=== PATIENT | male | born 1950 | race Two or more races ===

== ENCOUNTER 2018-01-27 23:48 | Inpatient (IN) | payer OTHER ==
[2018-01-28 01:01] LABS: BASO % 0.4 % (0-2.0); HEMATOCRIT 48.6 % (35.4-49); HEMOGLOBIN 16.5 GM/dL (11.7-16.9); LYMPH % 6.5 % (8-40); MCH 31.2 pg (25.7-33.7); MCHC 33.9 g/dl (32.0-35.9); MONO % 7.9 % (3.8-10.2); NEUT % 85.2 % (42.8-82.8); PLATELET COUNT 152 K/MM3 (134-434); RBC 5.28 M/mm3 (4.00-5.60); RDW 14.1 % (11.9-15.9); WHITE BLOOD COUNT 6.7 K/mm3 (4.0-10.0)
[2018-01-28] MEDS ORDERED: MIDAZOLAM HCL 2 MG/2 ML SINGLE DOSE VIAL ONE (01:05)
[2018-01-28 01:38] LABS: INR 1.29 (0.82-1.09); PROTHROMBIN TIME (PATIENT) 14.6 SEC (9.7-13.0)
--- NOTE | 2018-01-28 01:43 | PDOC ---
History of Present Illness - General History Source: EMS, Family (Sister) Exam Limitations: No Limitations - History of Present Illness Initial Comments: 01/28/18 01:45 The patient is a 67 year old male with past medical history of HTN, CVA h/o traumatic subdural hematoma, CHF, Hep B and C, syphilis, cirrhosis, chronic liver disease, hepatic encephalopathy and GERD presents to the emergency department via ems with altered mental status. As per the ems, the patient was found by a neighbor unresponsive. Enroute the patient was given 2 narcan via nasal, without response. The patient was reactive to plantar strokes. Ems reports the patient had constricted pupils, with a glucose level of 93. As per the sister, the patient had a similar incident May of 2017 s/p not taking his medication. The sister reports speaking with the patient 2 days ago ( Monday evening), states he reported taking his mediation and seemed mentally intact. Unable to obtain a detailed history due to the patients mental status. Allergies: NKDA Surgical history: Laminectomy and Total R. Hip replacement Social history: history of Polysubstance dependence (EtOH, cocaine and nicotine) . The sister states currently the patient has no toxic habits. PCP: None reported <Corrina Joseph - Last Filed: 01/28/18 01:46> <To Mcqueen - Last Filed: 01/28/18 02:23> - General Chief Complaint: Altered Mental Status Stated Complaint: ALTERED MENTAL STATUS Time Seen by Provider: 01/28/18 00:11 Past History <Corrina Joseph - Last Filed: 01/28/18 01:46> - Past Medical History Cardiac Disorders: Yes CVA: (H/O traumatic subdural hematoma) HTN: Yes Hypercholesterolemia: Yes Liver Disease: Yes (Cirrhosis, hepatic encephalopathy, hepatitis B, hepatitis C) - Surgical History Neurologic Surgery: Yes (Laminectomy) Orthopedic Surgery: Yes (Total R. Hip replacement) - Immunization History Immunization Up to Date: Yes - Suicide/Smoking/Psychosocial Hx Smoking Status: No Smoking History: Unknown if ever smoked Have you smoked in the past 12 months: No Number of Cigarettes Smoked Daily: 0 Information on smoking cessation initiated: No Hx Alcohol Use: No Drug/Substance Use Hx: No Substance Use Type: Alcohol Hx Substance Use Treatment: No <To Mcqueen - Last Filed: 01/28/18 02:23> - Past Medical History Allergies/Adverse Reactions: Allergies Allergy/AdvReac Type Severity Reaction Status Date / Time No Known Allergies Allergy Unverified 01/28/18 00:00 Home Medications: Ambulatory Orders Capsaicin/Skin Cleanser [Qutenza 8% Kit] 10 unit TP DAILY 12/27/16 Magnesium Oxide 400 mg PO DAILY 12/27/16 Multivitamin [Poly-Vitamin] 100 mg PO DAILY 12/27/16 Nicotine Patch [Nicoderm Patch -] 14 mg TP DAILY PRN 12/27/16 Omeprazole 20 mg PO DAILY 12/27/16 Polyethylene Glycol 1000 [Polyethylene Glycol] 238 gm PO DAILY 12/27/16 Trolamine Salicylate/Aloe Vera [Analgesic Creme 10% Cream] 10 unit TP DAILY 05/07 Lactulose (Oral Use) [Cephulac -] 45 gm PO Q6HPO #1 ml 12/31/16 Rifaximin [Xifaxan -] 550 mg PO BID #60 tab 12/31/16 Spironolactone 100 mg PO DAILY #30 tab 12/31/16 levETIRAcetam [Keppra -] 2 tab PO BID #120 tablet 12/31/16 Review of Systems - Review of Systems Able to Perform ROS?: No (Altered mental status ) <Corrina Joseph - Last Filed: 01/28/18 01:46> *Physical Exam - Vital Signs Last Vital Signs Temp Pulse Resp BP Pulse Ox 98.6 F 89 18 180/115 97 01/28/18 00:12 01/28/18 00:12 01/28/18 00:12 01/28/18 00:12 01/28/18 00:12 <Corrina Joseph - Last Filed: 01/28/18 01:46> - Vital Signs Last Vital Signs Temp Pulse Resp BP Pulse Ox 98.6 F 89 18 180/115 97 01/28/18 00:12 01/28/18 00:12 01/28/18 00:12 01/28/18 00:12 01/28/18 00:12 - Physical Exam Comments: 01/28/18 02:18 Patient was seen and evaluated immediately upon arrival. This physical exam is being recorded prior to admission. On arrival: Patient is somnolent, moans incoherently to sternal rub, does not follow commands, is noted to be combative and agitated and attempting to injure ED staff; Normocephalic, atraumatic PERRLA, no scleral icterus mmm neck is Supple cta rrr Abdomen is Soft, nontender, nondistended No lower extremity edema/deformity + Asterixis Patient moving all extremities symmetrically, does not follow commands; <To Mcqueen - Last Filed: 01/28/18 02:23> Heart Score/ECG Review - ECG Impressions Comment:: 01/28/18 01:45 Normal sinus rhythm Prolonged QT <Corrina Joseph - Last Filed: 01/28/18 01:46> ED Treatment Course - LABORATORY CBC & Chemistry Diagram: 01/28/18 00:12 01/28/18 01:13 - ADDITIONAL ORDERS Additional order review: Laboratory Results 01/28/18 01:13 PT with INR 14.60 H INR 1.29 H 01/28/18 00:12 RBC 5.28 D MCV 92.0 MCHC 33.9 RDW 14.1 MPV 9.0 Neutrophils % 85.2 H D Lymphocytes % 6.5 L D Monocytes % 7.9 Eosinophils % 0.0 D Basophils % 0.4 <Corrina Joseph - Last Filed: 01/28/18 01:46> - LABORATORY CBC & Chemistry Diagram: 01/28/18 00:12 01/28/18 01:13 - ADDITIONAL ORDERS Additional order review: Laboratory Results 01/28/18 01:13 PT with INR 14.60 H INR 1.29 H 01/28/18 00:12 RBC 5.28 D MCV 92.0 MCHC 33.9 RDW 14.1 MPV 9.0 Neutrophils % 85.2 H D Lymphocytes % 6.5 L D Monocytes % 7.9 Eosinophils % 0.0 D Basophils % 0.4 - RADIOLOGY Radiology Studies Ordered: Category Date Time Status HEAD CT WITHOUT CONTRAST [CT] Stat CT Scan 01/28/18 01:12 Taken CHEST X-RAY PORTABLE* [RAD] Stat Radiology 01/28/18 01:13 Ordered <To Mcqueen - Last Filed: 01/28/18 02:23> Medical Decision Making - Medical Decision Making 01/28/18 02:20 Patient is 67-year-old male with multiple comorbidities, history of liver cirrhosis (questionable hepatocellular carcinoma) who presents to the ER with signs and symptoms of acute hepatic encephalopathy with elevated ammonia level. Patient is somnolent, moans to sternal rub, does not follow commands; CT of head shows no evidence of acute intracranial pathology. Patient is afebrile rectally. CBC is at baseline without evidence of leukocytosis with minimal neutrophilia. CMP reveals significantly elevated ammonia of 182. Urinalysis reveals no evidence of pyuria. We will administer rectal lactulose. Will admit to ICU for further treatment. <To Mcqueen - Last Filed: 01/28/18 02:23> *DC/Admit/Observation/Transfer - Attestations Scribe Attestion: 01/28/18 01:46 Documentation prepared by Corrina Joseph, acting as medical staff specialist for To Mcqueen MD. <Corrina Joseph - Last Filed: 01/28/18 01:46> - Discharge Dispostion Decision to Admit order: Yes <To Mcqueen - Last Filed: 01/28/18 02:23> Diagnosis at time of Disposition: Hepatic encephalopathy Altered mental status Qualifiers: Altered mental status type: unspecified Qualified Code(s): R41.82 - Altered mental status, unspecified - Discharge Dispostion Condition at time of disposition: Critical
[2018-01-28] MEDS ORDERED: MIDAZOLAM HCL 2 MG/2 ML SINGLE DOSE VIAL IVPUSH ONE ×3 (01:45→23:25)
[2018-01-28 01:49] LABS: ALBUMIN 3.3 g/dl (3.4-5.0); ALK PHOS 134 U/L (45-117); ANION GAP 14 (8-16); BILIRUBIN,TOTAL 2.4 mg/dL (0.2-1.0); BLOOD UREA NITROGEN 16 mg/dL (7-18); CALCIUM 9.1 mg/dL (8.5-10.1); CHLORIDE 108 mmol/L (98-107); CO2 16 mmol/L (21-32); CREATININE 1.2 mg/dL (0.7-1.3); GLUCOSE,RANDOM 104 mg/dL (74-106); SGPT/ALT 34 U/L (12-78); SODIUM 138 mmol/L (136-145); TOT PROT 8.6 g/dl (6.4-8.2)
[2018-01-28 01:53] LABS: POTASSIUM 4.7 mmol/L (3.5-5.1); SGOT/AST 45 U/L (15-37)
[2018-01-28] MEDS ORDERED: LACTULOSE 20 GM/30 ML UDC (FOR RECTAL USE ONLY) PR ONE (02:01)
[2018-01-28 02:06] LABS: URINE APPEARANCE CLEAR; URINE BILIRUBIN NEGATIVE (<2.0 mg/dL); URINE COLOR YELLOW; URINE GLUCOSE (UA) NEGATIVE (NEGATIVE); URINE KETONE NEGATIVE (NEGATIVE); URINE LEUK ESTERASE NEGATIVE (NEGATIVE); URINE NITRITE NEGATIVE (NEGATIVE); URINE PROTEIN NEGATIVE (NEGATIVE)
[2018-01-28 02:14] LABS: EPI CELLS RARE /HPF (FEW); URINE HYALINE CAST 14 /lpf; URINE MUCUS FEW
[2018-01-28 02:17] LABS: COCAINE, UR NEGATIVE ng/ml (CUTOFF=300); METHADONE, UR NEGATIVE ng/ml (CUTOFF=300); OPIATES, URI NEGATIVE ng/ml (CUTOFF=300); PHENCYCLIDINE,URINE NEGATIVE ng/ml (CUTOFF=25); URINE AMPHETAMINES NEGATIVE ng/ml (CUTOFF=500); URINE BARBITURATES NEGATIVE ng/ml (CUTOFF=200)
[2018-01-28 02:18] LABS: URINE BENZODIAZEPINES POSITIVE ng/ml (CUTOFF=200)
--- NOTE | 2018-01-28 02:28 | PN ---
Teaching Attending Note Name of Resident: Ben Joya ATTENDING PHYSICIAN STATEMENT I saw and evaluated the patient. I reviewed the resident's note and discussed the case with the resident. I agree with the resident's findings and plan as documented. SUBJECTIVE: Patient is a 67 year old man with past history of HTN, CVA, traumatic subdural hematoma, polysubstance abuse, right hip replacement, CHF, Hep B and C, syphilis , cirrhosis, chronic liver disease, hepatic encephalopathy and GERD who presents with altered mental status - he was unresponsive by a neighbor who called EMS. EMS gave him narcan via nasal x 2, without response. EMS reports the patient had constricted pupils, with a glucose level of 93. His sister says she last spoke to him 2 days ago and he seemed okay. Patient is a . On arrival in the ER he was somnolent but later became agitated, becoming aggressive towards the staff. He was then sedated with ?Ativan and Versed and started on lactulose rectally. OBJECTIVE: Sedated. Somnolent but arousable. Vital Signs Period Temp Pulse Resp BP Sys/Cherry Pulse Ox Last 24 Hr 98.6 F 89 18 180/115 97 HEENT: Tinge of Jaundice, no eye redness or discharge, PERRLA, Normocephalic, atraumatic. External ears are normal; hearing cannot be properly assessed. No nasal discharge. Neck: Supple, nontender. No palpable adenopathy or thyromegaly. No JVD Chest: Good effort. Clear to auscultation and percussion. Heart: Regular. No S3, rub or murmur Abdomen: Not distended, soft, nontender and no HSM. No rebound or guarding. Normoactive bowel sounds. Ext: Peripheral pulses intact. No leg edema. Skin: Warm and dry. No petechiae, rash or ecchymosis. Neuro: Somnolent but arousable. Unable to assess for asterexis; no tremors at rest. Unable to follow commands. Withdraws limbs to painful stimuli. Home Medications Medication Instructions Recorded Capsaicin/Skin Cleanser [Qutenza 10 unit TP DAILY 12/27/16 8% Kit] Magnesium Oxide 400 mg PO DAILY 12/27/16 Multivitamin [Poly-Vitamin] 100 mg PO DAILY 12/27/16 Nicotine Patch [Nicoderm Patch -] 14 mg TP DAILY PRN 12/27/16 Omeprazole 20 mg PO DAILY 12/27/16 Polyethylene Glycol 1000 238 gm PO DAILY 12/27/16 [Polyethylene Glycol] Trolamine Salicylate/Aloe Vera 10 unit TP DAILY 12/27/16 [Analgesic Creme 10% Cream] Lactulose (Oral Use) [Cephulac -] 45 gm PO Q6HPO #1 ml 12/31/16 Rifaximin [Xifaxan -] 550 mg PO BID #60 tab 12/31/16 Spironolactone 100 mg PO DAILY #30 tab 12/31/16 levETIRAcetam [Keppra -] 2 tab PO BID #120 tablet 12/31/16 Abnormal Lab Results 01/28/18 01/28/18 01/28/18 00:12 01:13 01:13 Neutrophils % 85.2 H D Lymphocytes % 6.5 L D PT with INR 14.60 H INR 1.29 H Chloride 108 H Carbon Dioxide 16 L D Total Bilirubin 2.4 H D AST 45 H Alkaline Phosphatase 134 H D Ammonia Total Protein 8.6 H D Albumin 3.3 L D Urine Blood 01/28/18 01/28/18 01:13 01:55 Neutrophils % Lymphocytes % PT with INR INR Chloride Carbon Dioxide Total Bilirubin AST Alkaline Phosphatase Ammonia 185.2 H Total Protein Albumin Urine Blood 1+ H Current Medications Generic Name Dose Route Start Last Admin Trade Name Freq PRN Reason Stop Dose Admin Chlorhexidine Gluconate 1 applic 01/28/18 22:00 Hibiclens For Decolonization - TP HS PAUL Heparin Sodium (Porcine) 5,000 unit 01/28/18 06:00 Heparin - SQ TID PAUL Sodium Chloride 1,000 mls @ 75 mls/hr 01/28/18 03:30 Normal Saline - IV ASDIR PAUL Lactulose 20 gm 01/28/18 06:00 Cephulac (Oral Use) NGT TID PAUL Mupirocin 1 applic 01/28/18 10:00 Bactroban Ointment (For Decolonization) - NS 02/02/18 09:59 BID PAUL ASSESSMENT AND PLAN: 1. Hepatic encephalopathy - No obvious precipitating factor. Admit to the ICU as an inpatient. Head CT was negative. Though not the usual presentation, agitation can be a feature of hepatic encephalopathy. Will avoid benzodiazepines and use Haldol 2 mg IM to treat agitation. Treat with Lactulose 40 ml via NGT qid and Rifaximin 550 mg q 12 hours. Monitor electrolytes and give D5NS at 50 ml/hour. Willl monitor closely in view of history of CHF. 2. Uncontrolled hypertension - Will use IV hydralazine if it persists. 3. DVT prophylaxis - Heparin 5000u sq tid 4. Advance directives - Full code
[2018-01-28] MEDS ORDERED: SODIUM CHLORIDE 1,000 ML IV SCH (03:30)
--- NOTE | 2018-01-28 03:31 | HP ---
CHIEF COMPLAINT: AMS PCP: unknown HISTORY OF PRESENT ILLNESS: Pt is a 67 y/o M with multiple medical problems including Hep B, Hep C, cirrhosis, and hepatic encephalopathy for which he takes lactulose at home. Pt has a sister who helps him take care of himself and was present at bedside to provide history as pt is unresponsive. Per sister, she spoke with him Fri, and he was fine. His neighbor spoke with the pt yesterday and he was fine. However, when the sister tried to contact the pt in the afternoon, he did not respond, so she called the pt's neighbor who found the pt unresponsive. Pt has had a similar episode last December during which he was admitted to the ICU with hepatic encephalopathy with a lactulose in the 120s. He was seen by neurology at that time and because there was concern for possible seizure disorder, pt was put on Keppra. According to the sister, he has been taking it regularly. Pt lives alone, and sister calls him daily to ensure he's taken his medications. Pt's sister describes an episode about 1 month ago when she spoke to her brother and he told her that he had been confused and awoke to find that he had urinated and defecated on the floor of his apartment. He had no recollection of having done this. Pt's sister denies aving heard the pt describe any nausea, vomiting, cough, chills, fever. ER course was notable for: (1) t bili 2.4, AST 45, Alk phos 134, Ammonia 185, Alb 3.3, Utox pos for benzos (given in ED) (2) Head CT neg (3) Pt given midazolam for agitation. Given lactulose Recent Travel: denies PAST MEDICAL HISTORY: Hep B, Hep C, cirrhosis, and hepatic encephalopathy, HTN, CVA, tarumatic subdural, CHG, GERD PAST SURGICAL HISTORY: Social History: Smoking: Alcohol: Drugs: Family History: Allergies No Known Allergies Allergy (Unverified 01/28/18 00:00) HOME MEDICATIONS: Home Medications Medication Instructions Recorded Capsaicin/Skin Cleanser [Qutenza 10 unit TP DAILY 12/27/16 8% Kit] Magnesium Oxide 400 mg PO DAILY 12/27/16 Multivitamin [Poly-Vitamin] 100 mg PO DAILY 12/27/16 Nicotine Patch [Nicoderm Patch -] 14 mg TP DAILY PRN 12/27/16 Omeprazole 20 mg PO DAILY 12/27/16 Polyethylene Glycol 1000 238 gm PO DAILY 12/27/16 [Polyethylene Glycol] Trolamine Salicylate/Aloe Vera 10 unit TP DAILY 12/27/16 [Analgesic Creme 10% Cream] Lactulose (Oral Use) [Cephulac -] 45 gm PO Q6HPO #1 ml 12/31/16 Rifaximin [Xifaxan -] 550 mg PO BID #60 tab 12/31/16 Spironolactone 100 mg PO DAILY #30 tab 12/31/16 levETIRAcetam [Keppra -] 2 tab PO BID #120 tablet 12/31/16 REVIEW OF SYSTEMS unable to obtain. PHYSICAL EXAMINATION Vital Signs - 24 hr 01/28/18 00:12 Temperature 98.6 F Pulse Rate 89 Respiratory 18 Rate Blood Pressure 180/115 O2 Sat by Pulse 97 Oximetry (%) Gen: unresponsive, sleeping, snoring HEENT: pupils equal, round, and sluggishly reactive Neck: no jvd Cardio: s1, S2, rrr, no m/r/g. Difficult to auscultate over sound of snoring Pulm: cta b/l Abd: soft, ? possible hepatomegally Laboratory Results - last 24 hr 01/28/18 01/28/18 01/28/18 00:12 01:13 01:13 WBC 6.7 RBC 5.28 D Hgb 16.5 D Hct 48.6 D MCV 92.0 MCH 31.2 MCHC 33.9 RDW 14.1 Plt Count 152 D MPV 9.0 Absolute Neuts (auto) 5.7 Neutrophils % 85.2 H D Lymphocytes % 6.5 L D Monocytes % 7.9 Eosinophils % 0.0 D Basophils % 0.4 Nucleated RBC % 0 PT with INR 14.60 H INR 1.29 H Sodium 138 Potassium 4.7 D Chloride 108 H Carbon Dioxide 16 L D Anion Gap 14 BUN 16 D Creatinine 1.2 Creat Clearance w eGFR > 60 Random Glucose 104 D Calcium 9.1 Magnesium 2.0 Total Bilirubin 2.4 H D AST 45 H ALT 34 D Alkaline Phosphatase 134 H D Ammonia Total Protein 8.6 H D Albumin 3.3 L D Urine Color Urine Appearance Urine pH Ur Specific [place] Urine Protein Urine Glucose (UA) Urine Ketones Urine Blood Urine Nitrite Urine Bilirubin Urine Urobilinogen Ur Leukocyte Esterase Urine WBC (Auto) Urine RBC (Auto) Ur Epithelial Cells Hyaline Casts Urine Mucus Opiates Screen Methadone Screen Barbiturate Screen Phencyclidine Screen Ur Amphetamines Screen MDMA (Ecstasy) Screen Benzodiazepines Screen Cocaine Screen U Marijuana (THC) Screen Alcohol, Quantitative < 5.0 01/28/18 01/28/18 01/28/18 01:13 01:55 01:55 WBC RBC Hgb Hct MCV MCH MCHC RDW Plt Count MPV Absolute Neuts (auto) Neutrophils % Lymphocytes % Monocytes % Eosinophils % Basophils % Nucleated RBC % PT with INR INR Sodium Potassium Chloride Carbon Dioxide Anion Gap BUN Creatinine Creat Clearance w eGFR Random Glucose Calcium Magnesium Total Bilirubin AST ALT Alkaline Phosphatase Ammonia 185.2 H Total Protein Albumin Urine Color Yellow Urine Appearance Clear Urine pH 6.0 Ur Specific [place] 1.016 Urine Protein Negative Urine Glucose (UA) Negative Urine Ketones Negative Urine Blood 1+ H Urine Nitrite Negative Urine Bilirubin Negative Urine Urobilinogen 2.0 Ur Leukocyte Esterase Negative Urine WBC (Auto) 1 Urine RBC (Auto) 4 Ur Epithelial Cells Rare Hyaline Casts 14 Urine Mucus Few Opiates Screen Negative Methadone Screen Negative Barbiturate Screen Negative Phencyclidine Screen Negative Ur Amphetamines Screen Negative MDMA (Ecstasy) Screen Negative Benzodiazepines Screen Positive Cocaine Screen Negative U Marijuana (THC) Screen Negative Alcohol, Quantitative ASSESSMENT/PLAN: Pt is a 67 y/o M with PMH Hep B, Hep C, cirrhosis, and hepatic encephalopathy who presented to ED brought by neighbor due to AMS and unresponsiveness. Pt is admitted to ICU for hepatic encephalopathy. #Hepatic encephalopathy -Ammonia 180 -AMS -lactulose -start rifaximin once pt can take po. -GI cosult -Neuro consult #HTN -resume home meds once pt is more alert and can take PO #FEN -NS -Lytes wnl -NPO #PPx -hep sub Q #Dispo -Admit to ICU Ben Joya MD PGY-1 IM Visit type - Emergency Visit Emergency Visit: Yes ED Registration Date: 01/28/18 Care time: The patient presented to the Emergency Department on the above date and was hospitalized for further evaluation of their emergent condition. - New Patient This patient is new to me today: Yes Date on this admission: 01/28/18 - Critical Care Critical Care patient: No Hospitalist Screening - Colonoscopy Questionnaire Colonoscopy Questionnaire: Colonoscopy Questionnaire - Patient: 50 - 75 years old and never had a screening colonoscopy: Unknown History of colon or rectal polyps, or CA: Unknown History of IBD, Crohn's disease or UC: Unknown History of abdominal radiation therapy as a child: Unknown - Relative: 1 with colon or rectal CA, or polyps at age 60 or younger: Unknown Colon or rectal CA diagnosed at age 45 or younger: Unknown Multiple relatives with colon or rectal CA: Unknown - Outcome: Screening Result: Negative Screen
[2018-01-28] MEDS: LACTULOSE 20 GM/30 ML UDC (FOR ORAL USE ONLY) NGT SCH ×4 (04:47→18:41)
[2018-01-28] MEDS: HEPARIN NA (PORCINE) 5,000 UNITS/ML 1ML VIAL SQ SCH ×2 (05:30→13:40)
[2018-01-28] MEDS: amLODIPine BESYLATE 5 MG TABLET (FP) NGT SCH (07:48)
--- NOTE | 2018-01-28 09:25 | CONSULT ---
Consult Consult Specialty:: PULM/CCM Referred by:: ELADIA Reason for Consultation:: AMS - History of Present Illness Chief Complaint: AMS History of Present Illness: 67 M, Hepatitis B, Hepatitis C, cirrhosis, and hepatic encephalopathy ( previously on lactulose & rifaximin), former EtOH and cocaine abuse, syphilis, CHICHI, and GERD. Admitted via the ER due to AMS. Noted to have an ammonia level of 185. NGT was inserted for administration of lactulose. He has not had a BM yet. Patient is lethargic and poorly arousable. He is not able to provide any information. He was also apparently given Versed. He appears able to protect his airway nor is he in any respiratory distress. CXR: Clear: Questionable aortic dilatation versus projection which is new from his previous CXR CT Head: no acute process. - History Source History Provided By: Medical Record Limitations to Obtaining History: Clinical Condition - Past Medical History [employer] DEVEL[employer]: Yes: Other Cardio/Vascular: Yes: Deep Vein Thrombosis, HTN Pulmonary: Yes: Pulmonary Embolus Psych: Yes: Addictions Musculoskeletal: Yes: Other - Past Surgical History Past Surgical History: Yes: Laminectomy - Alcohol/Substance Use Hx Alcohol Use: No - Smoking History Smoking history: Unknown if ever smoked Have you smoked in the past 12 months: No Aproximately how many cigarettes per day: 0 Home Medications - Allergies Allergies/Adverse Reactions: Allergies Allergy/AdvReac Type Severity Reaction Status Date / Time No Known Allergies Allergy Unverified 01/28/18 00:00 - Home Medications Home Medications: Ambulatory Orders Capsaicin/Skin Cleanser [Qutenza 8% Kit] 10 unit TP DAILY 12/27/16 Magnesium Oxide 400 mg PO DAILY 12/27/16 Multivitamin [Poly-Vitamin] 100 mg PO DAILY 12/27/16 Nicotine Patch [Nicoderm Patch -] 14 mg TP DAILY PRN 12/27/16 Omeprazole 20 mg PO DAILY 12/27/16 Polyethylene Glycol 1000 [Polyethylene Glycol] 238 gm PO DAILY 12/27/16 Trolamine Salicylate/Aloe Vera [Analgesic Creme 10% Cream] 10 unit TP DAILY 05/07 Lactulose (Oral Use) [Cephulac -] 45 gm PO Q6HPO #1 ml 12/31/16 Rifaximin [Xifaxan -] 550 mg PO BID #60 tab 12/31/16 levETIRAcetam [Keppra -] 2 tab PO BID #120 tablet 12/31/16 Spironolactone 50 mg PO DAILY 01/28/18 Review of Systems Unable to obtain ROS, reason: not able to assess Physical Exam Vital Signs: Vital Signs Temperature 98.2 F 01/28/18 06:00 Pulse Rate 87 01/28/18 08:00 Respiratory Rate 11 L 01/28/18 08:00 Blood Pressure 158/98 01/28/18 08:00 O2 Sat by Pulse Oximetry (%) 99 01/28/18 04:52 Constitutional: Yes: No Distress Eyes: Yes: Conjunctiva Clear HENT: Yes: Atraumatic, Normocephalic Neck: Yes: Supple, Trachea Midline Cardiovascular: Yes: Regular Rate and Rhythm Respiratory: Yes: CTA Bilaterally, On Nasal O2. No: Rales, Rhonchi, Stridor, Tachypnea, Wheezes Gastrointestinal: Yes: Normal Bowel Sounds, Soft Renal/: Yes: WNL Musculoskeletal: Yes: WNL Extremities: Yes: WNL Edema: No Peripheral Pulses WNL: Yes Integumentary: Yes: WNL Neurological: Yes: Unresponsive Labs: CBC, BMP 01/28/18 00:12 01/28/18 01:13 Imaging - Results Chest X-ray: Report Reviewed, Image Reviewed Cat Scan: Report Reviewed, Image Reviewed Problem List - Problems (1) Hepatitis C Code(s): B19.20 - UNSPECIFIED VIRAL HEPATITIS C WITHOUT HEPATIC COMA (2) Hepatitis B Code(s): B19.10 - UNSPECIFIED VIRAL HEPATITIS B WITHOUT HEPATIC COMA (3) CHICHI (obstructive sleep apnea) Code(s): G47.33 - OBSTRUCTIVE SLEEP APNEA (ADULT) (PEDIATRIC) (4) Syphilis Code(s): A53.9 - SYPHILIS, UNSPECIFIED (5) Altered mental status Code(s): R41.82 - ALTERED MENTAL STATUS, UNSPECIFIED Qualifiers: Altered mental status type: unspecified Qualified Code(s): R41.82 - Altered mental status, unspecified (6) Hepatic encephalopathy Code(s): K72.90 - HEPATIC FAILURE, UNSPECIFIED WITHOUT COMA (7) Alcohol abuse Code(s): F10.10 - ALCOHOL ABUSE, UNCOMPLICATED Assessment/Plan Lactulose until BM then scheduled: was previously on 45gm Q6h Aspiration precautions Avoid sedative agents Rifaximin 550mg BID O2 as needed VTE prophylaxis Neuro evaluation ICU monitoring Dr Real Critical care time spent in reviewing chart, evaluating patient and formulating plan - 36 minutes.
[2018-01-28] MEDS ORDERED: LACTULOSE 20 GM/30 ML UDC (FOR RECTAL USE ONLY) PR SCH (10:00)
[2018-01-28] MEDS ORDERED: amLODIPine BESYLATE 5 MG TABLET (FP) PO SCH (10:00)
--- NOTE | 2018-01-28 10:29 | PN ---
Physical Exam: SUBJECTIVE: Patient seen and examined, responds to a few questions, but no meaningful responses elicited. OBJECTIVE: Vital Signs Period Temp Pulse Resp BP Sys/Cherry Pulse Ox Last 24 Hr 98.2 F-98.6 F 85-108 11-18 142-180/94-115 97-99 General: waking up in bed, non specific moaning Neuro: non specific moaning, awake, responds to name, moves all extremities, facial symmetry, further exam limited Chest: decreased effort, no rales or wheezing, limited exam, non specific moaning on chest palpation Abdomen: soft, non specific moaning on exam, no voluntary or involuntary guarding or rigidity, positive bowel sounds Extremities: no edema Laboratory Results - last 24 hr 01/28/18 01/28/18 01/28/18 00:12 01:13 01:13 WBC 6.7 RBC 5.28 D Hgb 16.5 D Hct 48.6 D MCV 92.0 MCH 31.2 MCHC 33.9 RDW 14.1 Plt Count 152 D MPV 9.0 Absolute Neuts (auto) 5.7 Neutrophils % 85.2 H D Lymphocytes % 6.5 L D Monocytes % 7.9 Eosinophils % 0.0 D Basophils % 0.4 Nucleated RBC % 0 PT with INR 14.60 H INR 1.29 H Sodium 138 Potassium 4.7 D Chloride 108 H Carbon Dioxide 16 L D Anion Gap 14 BUN 16 D Creatinine 1.2 Creat Clearance w eGFR > 60 Random Glucose 104 D Calcium 9.1 Magnesium 2.0 Total Bilirubin 2.4 H D AST 45 H ALT 34 D Alkaline Phosphatase 134 H D Ammonia Total Protein 8.6 H D Albumin 3.3 L D Urine Color Urine Appearance Urine pH Ur Specific Casey Urine Protein Urine Glucose (UA) Urine Ketones Urine Blood Urine Nitrite Urine Bilirubin Urine Urobilinogen Ur Leukocyte Esterase Urine WBC (Auto) Urine RBC (Auto) Ur Epithelial Cells Hyaline Casts Urine Mucus Opiates Screen Methadone Screen Barbiturate Screen Phencyclidine Screen Ur Amphetamines Screen MDMA (Ecstasy) Screen Benzodiazepines Screen Cocaine Screen U Marijuana (THC) Screen Alcohol, Quantitative < 5.0 01/28/18 01/28/18 01/28/18 01:13 01:55 01:55 WBC RBC Hgb Hct MCV MCH MCHC RDW Plt Count MPV Absolute Neuts (auto) Neutrophils % Lymphocytes % Monocytes % Eosinophils % Basophils % Nucleated RBC % PT with INR INR Sodium Potassium Chloride Carbon Dioxide Anion Gap BUN Creatinine Creat Clearance w eGFR Random Glucose Calcium Magnesium Total Bilirubin AST ALT Alkaline Phosphatase Ammonia 185.2 H Total Protein Albumin Urine Color Yellow Urine Appearance Clear Urine pH 6.0 Ur Specific Casey 1.016 Urine Protein Negative Urine Glucose (UA) Negative Urine Ketones Negative Urine Blood 1+ H Urine Nitrite Negative Urine Bilirubin Negative Urine Urobilinogen 2.0 Ur Leukocyte Esterase Negative Urine WBC (Auto) 1 Urine RBC (Auto) 4 Ur Epithelial Cells Rare Hyaline Casts 14 Urine Mucus Few Opiates Screen Negative Methadone Screen Negative Barbiturate Screen Negative Phencyclidine Screen Negative Ur Amphetamines Screen Negative MDMA (Ecstasy) Screen Negative Benzodiazepines Screen Positive Cocaine Screen Negative U Marijuana (THC) Screen Negative Alcohol, Quantitative Active Medications Generic Name Dose Route Start Last Admin Trade Name Freq PRN Reason Stop Dose Admin Amlodipine Besylate 5 mg 01/28/18 07:15 01/28/18 07:48 Norvasc - NGT 5 mg DAILY [facility] Administration Chlorhexidine Gluconate 1 applic 01/28/18 22:00 Hibiclens For Decolonization - TP HS [facility] Heparin Sodium (Porcine) 5,000 unit 01/28/18 06:00 01/28/18 05:30 Heparin - SQ 5,000 unit TID [facility] Administration Dextrose/Sodium Chloride 1,000 mls @ 100 mls/hr 01/28/18 10:30 D5-Ns - IV ASDIR [facility] Lactulose 45 gm 01/28/18 12:00 Cephulac (Oral Use) NGT Q6HPO [facility] Mupirocin 1 applic 01/28/18 10:00 Bactroban Ointment (For Decolonization) - NS 02/02/18 09:59 BID [facility] Rifaximin 550 mg 01/28/18 10:00 Xifaxan - PO BID [facility] CT brain results reviewed CXR results reviewed, ?Dilated knob, repeat CXR when improved ASSESSMENT/PLAN: 67 yom with PMHx of HTN, CVA, traumatic subdural hematoma, polysubstance abuse (ETOH/cocaine), right hip replacement, CHF, Hep B and C, syphilis, cirrhosis, chronic liver disease, hepatic encephalopathy and GERD, admitted with AMS in 2016 felt to be combination of seizure/hepatic encephalopathy, readmitted with AMS -AMS,likely hepatic encephalopathy +/- seizures (no response narcan and no evidence of hypoglycemia in the field) -Decompensated cirrhosis -?HCC,patient on nexavar -polysubstance abuse with ETOH/cocaine -HTN/tachycardia, ?from agitation/pain vs withdrawal. -Seizure disorder -Chronic Hep B and C -H/o CVA, traumatic subdural hematoma -?CHF -syphilis -GERD Plan: Mental status improved. Continue NGT aggressive lactulose and rifaximin. Screen for precipitating factors. monitor h/h, FOBT, urine clear, repeat CXR. Start Ceftriaxone emperic treatment for SBP, Abdominal US when stable, serial exams. Follow up GI input. Sister denies recent ETOH use, reports last use more than a year ago. Gentle hydration D5NS at 50. Hold lasix/aldactone for now. On Nexavar, ?HCC, retrieve more info from outpatient GI tomorrow. Neurology input noted. Keppra IV BID, seizure precautions. Neuro Checks. Amlodipine for BP. Sister strongly denies ETOH use recently.Avoid sedatives for now. DVTPPX with SCDs. Dispo pending clinical improvement. Plan discussed with sister Anayeli on phone in detail, all questions answered. medications received, home meds reconciled. Also discussed code status, initially stated no CPR but ok with intubation. Explained in detail and wants patient full code till he wakes up and she can have a convsesation with him. 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 Total critical care time spent in ICU 45 min. Visit type - Emergency Visit Emergency Visit: No - New Patient This patient is new to me today: Yes Date on this admission: 01/28/18 - Critical Care Critical Care patient: Yes Total Critical Care Time (in minutes): 45 Critical Care Statement: The care of this patient involved high complexity decision making to prevent further life threatening deterioration of the patient 's condition and/or to evaluate & treat vital organ system(s) failure or risk of failure.
[2018-01-28] MEDS ORDERED: DEXTROSE 5%-NORMAL SALINE 1,000 ML IV SCH ×2 (10:30→16:59)
[2018-01-28] MEDS: RIFAXIMIN 550 MG TABLET (UD) PO SCH ×2 (10:30→21:37)
[2018-01-28] MEDS ORDERED: PT OWN MED DRAWER 7, Y5N ONE (10:45)
[2018-01-28] MEDS: MUPIROCIN 2% TOPICAL OINTMENT FOR DECOLONIZATION NS SCH ×2 (10:47→21:36)
--- NOTE | 2018-01-28 11:37 | CON.NEURO ---
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: Yes: Other Cardio/Vascular: Yes: Deep Vein Thrombosis, HTN Pulmonary: Yes: Pulmonary Embolus Psych: Yes: Addictions Musculoskeletal: Yes: Other - Past Surgical History Past Surgical History: Yes: Laminectomy - Alcohol/Substance Use Hx Alcohol Use: No - Smoking History Smoking history: Unknown if ever smoked Have you smoked in the past 12 months: No Aproximately how many cigarettes per day: 0 Home Medications - Allergies Allergies/Adverse Reactions: Allergies Allergy/AdvReac Type Severity Reaction Status Date / Time No Known Allergies Allergy Unverified 01/28/18 00:00 - Home Medications Home Medications: Ambulatory Orders Capsaicin/Skin Cleanser [Qutenza 8% Kit] 10 unit TP DAILY 12/27/16 Magnesium Oxide 400 mg PO DAILY 12/27/16 Multivitamin [Poly-Vitamin] 100 mg PO DAILY 12/27/16 Nicotine Patch [Nicoderm Patch -] 14 mg TP DAILY PRN 12/27/16 Omeprazole 20 mg PO DAILY 12/27/16 Polyethylene Glycol 1000 [Polyethylene Glycol] 238 gm PO DAILY 12/27/16 Trolamine Salicylate/Aloe Vera [Analgesic Creme 10% Cream] 10 unit TP DAILY 05/07 Lactulose (Oral Use) [Cephulac -] 45 gm PO Q6HPO #1 ml 12/31/16 Rifaximin [Xifaxan -] 550 mg PO BID #60 tab 12/31/16 levETIRAcetam [Keppra -] 2 tab PO BID #120 tablet 12/31/16 Spironolactone 50 mg PO DAILY 01/28/18 Physical Exam-Neuro Vital Signs: Vital Signs Temperature 98.6 F 01/28/18 10:00 Pulse Rate 87 01/28/18 08:00 Respiratory Rate 12 01/28/18 10:00 Blood Pressure 142/97 01/28/18 10:00 O2 Sat by Pulse Oximetry (%) 99 01/28/18 09:00 Labs: CBC, BMP 01/28/18 00:12 01/28/18 01:13 INR, PTT INR 1.29 (0.82-1.09) H 01/28/18 01:13 Assessment/Plan cc Episode of confusion HPI 67 year old male hsitory of Hep B, Hep C, Cirrhosis and had seizure during last admission. Patient was found to be unrepsonsive. He is being treated for hepatic encephalopathy. He has been improving slightly. He has no fever or seizure activity while in hospital. Patient is not on keppra. He has ct head which was unremarkable. He has one bowel movement. Spoke to Hospitalist and nursing staff. PAST MEDICAL HISTORY: Hep B, Hep C, cirrhosis, and hepatic encephalopathy, HTN, CVA, tarumatic subdural, CHG, GERD SH,ROS,FH reviewed in chart HOME MEDICATIONS: Home Medications Medication Instructions Recorded Capsaicin/Skin Cleanser [Qutenza 10 unit TP DAILY 12/27/16 8% Kit] Magnesium Oxide 400 mg PO DAILY 12/27/16 Multivitamin [Poly-Vitamin] 100 mg PO DAILY 12/27/16 Nicotine Patch [Nicoderm Patch -] 14 mg TP DAILY PRN 12/27/16 Omeprazole 20 mg PO DAILY 12/27/16 Polyethylene Glycol 1000 238 gm PO DAILY 12/27/16 [Polyethylene Glycol] Trolamine Salicylate/Aloe Vera 10 unit TP DAILY 12/27/16 [Analgesic Creme 10% Cream] Lactulose (Oral Use) [Cephulac -] 45 gm PO Q6HPO #1 ml 12/31/16 Rifaximin [Xifaxan -] 550 mg PO BID #60 tab 12/31/16 Spironolactone 100 mg PO DAILY #30 tab 12/31/16 levETIRAcetam [Keppra -] 2 tab PO BID #120 tablet 12/31/16 Neurological Examination Drowsy and opens eye and able to follow simple command He go back to sleep again there is no agitation , there is no neck stiffness EOMI, pupils reactive, and there is nof bob asymmetry He is able to move all four extremity and follow command and sheet tester my hand Planter is mute Ct head is unremarkable Assessment- Most likley Heptic encephalopathy, and As he presented with seizure last time and He was quite agitated in Ed, and Initial thought was if he is post ictal. 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 - Continue supportive care as per ICU - No need for EEG AT THIS TIME Thanking you so much Nj Hanna MD
--- NOTE | 2018-01-28 11:47 | EKG ---
Test Reason : Blood Pressure : / mmHG Vent. Rate : 099 BPM Atrial Rate : 099 BPM P-R Int : 150 ms QRS Dur : 082 ms QT Int : 382 ms P-R-T Axes : 068 083 063 degrees QTc Int : 490 ms NORMAL SINUS RHYTHM PROLONGED QT ABNORMAL ECG WHEN COMPARED WITH ECG OF 27-DEC-2016 09:13, NO SIGNIFICANT CHANGE WAS FOUND Confirmed by MD Arvin, Cordell ([id number]) on 01/28/2018 11:47:22 AM Referred By: Confirmed By:Cordell Sheridan MD
[2018-01-28] MEDS: levETIRAcetam 500 MG/5 ML INJECTION VIAL IVPB SCH ×2 (11:50→21:37)
[2018-01-28] MEDS ORDERED: DEXTROSE 5%-WATER 100 ML IVPB ONE (17:28)
[2018-01-28] MEDS: PANTOPRAZOLE SODIUM 40 MG VIAL IVPUSH SCH (17:32)
[2018-01-28] MEDS: CEFTRIAXONE 2 GM in DEXTROSE 5%-WATER 100 ML IVPB SCH (17:32)
[2018-01-28] MEDS: CHLORHEXIDINE GLUCONATE 4% CLEANSER FOR DECOLONIZATION TP SCH (21:36)
[2018-01-28] MEDS ORDERED: QUEtiapine FUMARATE 25 MG TABLET (FP) PO ONE (23:00)
[2018-01-29 06:59] LABS: INR 1.34 (0.82-1.09); PROTHROMBIN TIME (PATIENT) 15.1 SEC (9.7-13.0)
[2018-01-29 07:11] LABS: ALBUMIN 2.9 g/dl (3.4-5.0); BLOOD UREA NITROGEN 16 mg/dL (7-18); GLUCOSE,RANDOM 89 mg/dL (74-106); PHOSPHOROUS 2.7 mg/dL (2.5-4.9); SGOT/AST 41 U/L (15-37)
[2018-01-29 07:38] LABS: ALK PHOS 103 U/L (45-117); CALCIUM 8.3 mg/dL (8.5-10.1); CO2 23 mmol/L (21-32); CREATININE 0.9 mg/dL (0.7-1.3); MAGNESIUM 1.9 mg/dL (1.8-2.4); SGPT/ALT 28 U/L (12-78); TOT PROT 7.2 g/dl (6.4-8.2)
[2018-01-29 07:46] LABS: HEMOGLOBIN 14.4 GM/dL (11.7-16.9); MCH 31.6 pg (25.7-33.7); MCHC 34.3 g/dl (32.0-35.9); MEAN PLT VOLUME 10.5 fl (7.5-11.1); PLATELET COUNT 125 K/MM3 (134-434); RBC 4.57 M/mm3 (4.00-5.60); RDW 13.8 % (11.9-15.9); WHITE BLOOD COUNT 5.4 K/mm3 (4.0-10.0)
[2018-01-29] MEDS ORDERED: DEXTROSE 5%-WATER 100 ML IVPB ONE (09:51)
[2018-01-29] MEDS: CEFTRIAXONE 2 GM in DEXTROSE 5%-WATER 100 ML IVPB SCH (09:52)
[2018-01-29] MEDS: PANTOPRAZOLE SODIUM 40 MG VIAL IVPUSH SCH (09:53)
[2018-01-29] MEDS: amLODIPine BESYLATE 5 MG TABLET (FP) NGT SCH (09:56)
[2018-01-29] MEDS: RIFAXIMIN 550 MG TABLET (UD) PO SCH ×2 (09:58→22:32)
[2018-01-29] MEDS: MUPIROCIN 2% TOPICAL OINTMENT FOR DECOLONIZATION NS SCH ×2 (09:58→22:32)
--- NOTE | 2018-01-29 10:15 | PN ---
Progress Note (short form) - Note Progress Note: 67 year old male hsitory of Hep B, Hep C, Cirrhosis and had seizure during last admission. Patient was found to be unrepsonsive. He is being treated for hepatic encephalopathy. He has no fever or seizure activity while in hospital. He has been treated for Hepatic Encephalopathy, and he has improved since admission and there is no seizure activity. He has not been spiking fever or high wbc He has ct head which was unremarkable. Neurological Examination Drowsy and opens eye and able to follow simple command there is no agitation , there is no neck stiffness EOMI, pupils reactive, and there is nof bob asymmetry He is able to move all four extremity and follow command and apartment maintenance worker my hand( exact strength is difficult due to drowsiness) Planter is mute Ct head is unremarkable Assessment- Most likley Heptic encephalopathy, As there was episode of seizure before and there was a suspician if he also suffered from seizure Plan- Continue keppra for now , may not need for long distance operator. - Continue supportive care as per ICU Thanking you so much Nj Hanna MD
--- NOTE | 2018-01-29 11:22 | PN ---
Teaching Attending Note Name of Resident: Marcio Fischer ATTENDING PHYSICIAN STATEMENT I saw and evaluated the patient. I reviewed the resident's note and discussed the case with the resident. I agree with the resident's findings and plan as documented. SUBJECTIVE: Pt seen and examined in the ICU. Somnolent but arousable. Ammonia level improving. NGT in place. OBJECTIVE: Vital Signs Period Temp Pulse Resp BP Sys/Cherry Pulse Ox Last 24 Hr 96.4 F-98.9 F 82-106 18 125-165/80-101 99 Intake & Output 01/26/18 01/27/18 01/28/18 01/29/18 23:59 23:59 23:59 23:59 Intake Total 450 350 Output Total 500 Balance 450 -150 Weight 87.589 kg 88.813 kg Gen: somnolent but arousable Heart: RRR Lung: scattered rhonchi Abd: soft, nontender Ext: no edema CBC, BMP 01/29/18 05:30 01/29/18 05:30 Active Medications Amlodipine Besylate (Norvasc -) 5 mg NGT DAILY [facility] Last Admin: 01/29/18 09:56 Dose: 5 mg Chlorhexidine Gluconate (Hibiclens For Decolonization -) 1 applic TP HS [facility] Last Admin: 01/28/18 21:36 Dose: 1 applic Dextrose/Sodium Chloride (D5-Ns -) 1,000 mls @ 50 mls/hr IV ASDIR [facility] Last Admin: 01/28/18 17:26 Dose: 50 mls/hr Ceftriaxone Sodium 2 gm/ (Dextrose) 100 mls @ 100 mls/hr IVPB DAILY [facility] Last Admin: 01/29/18 09:52 Dose: 100 mls/hr Lactulose (Cephulac (Oral Use)) 45 gm NGT Q6HPO [facility] Last Admin: 01/28/18 18:41 Dose: 45 gm Levetiracetam (Keppra Injection -) 1,000 mg IVPB BID [facility] Last Admin: 01/28/18 21:37 Dose: 1,000 mg Mupirocin (Bactroban Ointment (For Decolonization) -) 1 applic NS BID [facility] Stop: 02/02/18 09:59 Last Admin: 01/29/18 09:58 Dose: 1 applic Pantoprazole Sodium (Protonix Iv) 40 mg IVPUSH DAILY [facility] Last Admin: 01/29/18 09:53 Dose: 40 mg Rifaximin (Xifaxan -) 550 mg PO BID [facility] Last Admin: 01/29/18 09:58 Dose: 550 mg ASSESSMENT AND PLAN: Hepatic Encephalopathy Liver Cirrhosis Hep B/C Polysubstance Abuse Hepatocellular Carcinoma HTN Seizure Disorder h/o CVA - continue lactulose, rifaximin - monitor ammonia level - aspiration precautions - on empiric antibiotics - antiepileptics - DVT prophylaxis - continue ICU monitoring for respiratory status critical care time spent in reviewing chart, evaluating patient and formulating plan 35 min
[2018-01-29 12:04] LABS: ANION GAP 7 (8-16); CHLORIDE 113 mmol/L (98-107); POTASSIUM 4.1 mmol/L (3.5-5.1); SODIUM 143 mmol/L (136-145)
--- NOTE | 2018-01-29 12:04 | CON.GI ---
Consult Consult Specialty:: Gastroenterology Referred by:: Dr. Henning Reason for Consultation:: Hepatic Encephalopathy - History of Present Illness Chief Complaint: Lethargy History of Present Illness: Patient is a 67 year old male who was BIBEMS from home after being found unresponsive by his neighbor. When EMS arrived patient had altered mental status and was given 2 of nasal narcan. According to patients sister, she spoke to him Benson evening (01/26/18) and patient was at baseline and not altered. However, she does report that he had a similar episode 8 months ago ( 05/2017) and was found to have hepatic encephalopathy due to medication nonadherence. Patient is unable to provide any information due to his medical condition and mental status. - History Source History Provided By: Medical Record Limitations to Obtaining History: Unresponsive - Past Medical History DETECTIVE NARCOTICS AND VICE: Yes: Other (traumatic subdural hematoma) Cardio/Vascular: Yes: CHF, HTN Gastrointestinal: Yes: GERD Hepatobiliary: Yes: Cirrhosis, Hepatitis B, Hepatitis C Psych: Yes: Addictions (cocaine, etoh, nicotine ) Musculoskeletal: Yes: Other - Past Surgical History Past Surgical History: Yes: Joint Replacement (Total right hip replacement ), Laminectomy - Alcohol/Substance Use Hx Alcohol Use: Yes History of Substance Use: reports: Cocaine - Smoking History Smoking history: Smoker current status UNK Have you smoked in the past 12 months: No Aproximately how many cigarettes per day: 0 - Social History Usual Living Arrangement: Alone <Brenda Nesbitt - Last Filed: 01/29/18 12:51> Home Medications <Brenda Nesbitt - Last Filed: 01/29/18 12:51> <Jax Salcedo - Last Filed: 01/29/18 16:02> - Allergies Allergies/Adverse Reactions: Allergies Allergy/AdvReac Type Severity Reaction Status Date / Time No Known Allergies Allergy Unverified 01/28/18 00:00 - Home Medications Home Medications: Ambulatory Orders Rifaximin [Xifaxan -] 550 mg PO BID #60 tab 12/31/16 Furosemide [Lasix] 20 mg PO DAILY 01/28/18 Lactobacillus Acidophilus [Acidophilus] 1 each PO DAILY 01/28/18 Lactulose 30 gm PO Q4H 01/28/18 Magnesium Oxide 400 mg PO DAILY 01/28/18 Omeprazole 20 mg PO DAILY 01/28/18 Polyethylene Glycol 3350 [Miralax (For Daily Use) -] 17 gm PO DAILY 01/28/18 Sorafenib Tosylate [Nexavar] 400 mg PO BID 01/28/18 Spironolactone 50 mg PO DAILY 01/28/18 Trazodone HCl 50 mg PO HS 01/28/18 Review of Systems Unable to obtain ROS, reason: AMS <Brenda Nesbitt - Last Filed: 01/29/18 12:51> Physical Exam-GI Vital Signs: Vital Signs Temperature 98.9 F 01/29/18 08:30 Pulse Rate 77 01/29/18 10:00 Respiratory Rate 11 L 01/29/18 10:00 Blood Pressure 130/97 01/29/18 10:00 O2 Sat by Pulse Oximetry (%) 99 01/29/18 09:00 Constitutional: Yes: Other (Somnolent but arousable) Eyes: Yes: PERRL. No: Sclera Icterus Neck: Yes: WNL, Supple, Trachea Midline Cardiovascular: Yes: WNL, Regular Rate and Rhythm, S1, S2 Respiratory: Yes: WNL, Regular, CTA Bilaterally Gastrointestinal Inspection: No: Ascites, Distention ...Auscultate: Yes: Normoactive Bowel Sounds ...Palpate: Yes: Soft. No: Firm/Rigid, Guarding, Tenderness, Epigastium, Tenderness, Rebound ...Percussion: No: Fluid Wave, Tympanitic ...Rectal Exam: Yes: Deferred Extremities: Yes: WNL. No: Amputation, Calf Tenderness Edema: No Peripheral Pulses WNL: Yes Neurological: Yes: Unresponsive Labs: CBC, BMP 01/29/18 05:30 01/29/18 05:30 INR, PTT INR 1.34 (0.82-1.09) H 01/29/18 05:30 <Brenda Nesbitt - Last Filed: 01/29/18 12:51> Vital Signs: Vital Signs Temperature 98.7 F 01/29/18 14:00 Pulse Rate 95 H 01/29/18 14:00 Respiratory Rate 10 L 01/29/18 14:00 Blood Pressure 125/71 01/29/18 14:00 O2 Sat by Pulse Oximetry (%) 99 01/29/18 09:00 Labs: CBC, BMP 01/29/18 05:30 01/29/18 05:30 INR, PTT INR 1.34 (0.82-1.09) H 01/29/18 05:30 <Jax Salcedo - Last Filed: 01/29/18 16:02> Imaging - Results Ultrasound: Report Reviewed, Image Reviewed <Brenda Nesbitt - Last Filed: 01/29/18 12:51> Problem List - Problems (1) Altered mental status Assessment/Plan: Likely secondary to Hepatic Encephalopathy but will need to rule out other etiologies that include but not limited to Infectious, neurological including stroke, acute intoxication, thrombosis vs ascites (as it can cause acute AMS), Acute hepatic injury, hepatic malignancy. Degree of hepatic encephalopathy is not based on Ammonia levels but will need to continue Lactulose and titrate to 4 -5 bowel movements daily. Start Rifaximin as soon as patient tolerates PO or if compatible with NGT. Will order MRI of the liver and AFP level. MELD score 12. Continue Daily labs Code(s): R41.82 - ALTERED MENTAL STATUS, UNSPECIFIED Qualifiers: Altered mental status type: unspecified Qualified Code(s): R41.82 - Altered mental status, unspecified (2) Hepatic encephalopathy Assessment/Plan: -Ammonia level trending down but will not base degree of encephalopathy on ammonia levels -MRI of the liver. -AFP level -Titrate Lactulose to 4-5 daily movements -Continue Daily hepatic and Lactulose labs Code(s): K72.90 - HEPATIC FAILURE, UNSPECIFIED WITHOUT COMA <Brenda Nesbitt - Last Filed: 01/29/18 12:51> Assessment/Plan Much more alert now. Oriented to time. NAD. Wants NGT out. Cont. lactulose, Rifaximine (via NGT). Obtain MRI of the liver. Avoid non- essential and hepatotox. medications. Monitor liver chem., bili, ALP. Will follow <Jax Salcedo - Last Filed: 01/29/18 16:02>
--- NOTE | 2018-01-29 12:50 | PN ---
Physical Exam: SUBJECTIVE: Patient seen and examined at bedside. No overnight events. No new complaints. More awake than yesterday. Denies CP,BLACK,SOB, palpitations, abdominal pain, N/V. OBJECTIVE: Vital Signs Period Temp Pulse Resp BP Sys/Cherry Pulse Ox Last 24 Hr 96.4 F-98.9 F 77-104 07-08 125-163/62-97 99-99 GENERAL: arousable but lethargic. HEAD:NC/AT EYES: PERRL, EOMI, sclera anicteric, conjunctiva clear. No ptosis. ENT: moist mucous membranes. NECK:supple, no jvd LUNGS: CTAB, No wheezing or rales. HEART: RRR, NL S1S2 w/o murmur, rub or gallop. ABDOMEN: Soft,obese, nontender, mod distended, NABS, no organomegally. EXTREMITIES: 2+ pulses, warm, well-perfused, no edema. NEUROLOGICAL: lethargic Laboratory Results - last 24 hr 01/28/18 01/29/18 01/29/18 17:06 05:30 05:30 WBC 5.4 RBC 4.57 Hgb 14.4 D Hct 42.0 MCV 92.0 MCH 31.6 MCHC 34.3 RDW 13.8 Plt Count 125 L MPV 10.5 D Platelet Comment No clumping noted PT with INR INR Sodium 143 Potassium 4.1 Chloride 113 H Carbon Dioxide 23 D Anion Gap 7 L BUN 16 Creatinine 0.9 D Creat Clearance w eGFR > 60 POC Glucometer 102.92446 Random Glucose 89 Calcium 8.3 L Phosphorus 2.7 D Magnesium 1.9 Total Bilirubin 2.0 H AST 41 H ALT 28 Alkaline Phosphatase 103 D Ammonia Total Protein 7.2 Albumin 2.9 L 01/29/18 01/29/18 05:30 05:30 WBC RBC Hgb Hct MCV MCH MCHC RDW Plt Count MPV Platelet Comment PT with INR 15.10 H INR 1.34 H Sodium Potassium Chloride Carbon Dioxide Anion Gap BUN Creatinine Creat Clearance w eGFR POC Glucometer Random Glucose Calcium Phosphorus Magnesium Total Bilirubin AST ALT Alkaline Phosphatase Ammonia 77.52 H Total Protein Albumin Active Medications Generic Name Dose Route Start Last Admin Trade Name Freq PRN Reason Stop Dose Admin Amlodipine Besylate 5 mg 01/28/18 07:15 01/29/18 09:56 Norvasc - NGT 5 mg DAILY [facility] Administration Chlorhexidine Gluconate 1 applic 01/28/18 22:00 01/28/18 21:36 Hibiclens For Decolonization - TP 1 applic HS [facility] Administration Dextrose/Sodium Chloride 1,000 mls @ 50 mls/hr 01/28/18 16:59 01/28/18 17:26 D5-Ns - IV 50 mls/hr ASDIR [facility] Administration Ceftriaxone Sodium 2 gm/ 100 mls @ 100 mls/hr 01/28/18 17:30 01/29/18 09:52 Dextrose IVPB 100 mls/hr DAILY [facility] Administration Lactulose 45 gm 01/28/18 12:00 01/28/18 18:41 Cephulac (Oral Use) NGT 45 gm Q6HPO [facility] Administration Levetiracetam 1,000 mg 01/28/18 11:30 01/28/18 21:37 Keppra Injection - IVPB 1,000 mg BID [facility] Administration Mupirocin 1 applic 01/28/18 10:00 01/29/18 09:58 Bactroban Ointment (For Decolonization) - NS 02/02/18 09:59 1 applic BID [facility] Administration Pantoprazole Sodium 40 mg 01/28/18 17:15 01/29/18 09:53 Protonix Iv IVPUSH 40 mg DAILY [facility] Administration Rifaximin 550 mg 01/28/18 10:00 01/29/18 09:58 Xifaxan - PO 550 mg BID [facility] Administration ASSESSMENT/PLAN: 67 yo M with PMHx of advanced liver cirrhosis presents with acute hepatic encephalopathy and managed in ICU. Neuro: * Hepatic Encephalopathy: arousable but lethargic. * Neuro checks QSHIFT. * Continue Seroquel. * Keppra as per Neuro * Neuro consult appreciated. Pulm: * No acute pulmonary issues. * Supplemental O2 PRN CV: * HTN well controlled at this time * Will continue with Amlodipine 5mg PO daily GI: * Acute hepatic encephalopathy. * Laculose * Rifaximin * Ceftriaxone - SBP prophylaxis. * repeat Ammonia in AM * Liver MRI pending * AFP tumor marker. DISPO: Continue to monitor in ICU. Visit type - Emergency Visit Emergency Visit: Yes ED Registration Date: 01/28/18 Care time: The patient presented to the Emergency Department on the above date and was hospitalized for further evaluation of their emergent condition. - New Patient This patient is new to me today: Yes Date on this admission: 01/29/18 - Critical Care Critical Care patient: Yes Total Critical Care Time (in minutes): 49 Critical Care Statement: The care of this patient involved high complexity decision making to prevent further life threatening deterioration of the patient 's condition and/or to evaluate & treat vital organ system(s) failure or risk of failure.
[2018-01-29] MEDS: levETIRAcetam 500 MG/5 ML INJECTION VIAL IVPB SCH ×2 (12:56→22:32)
[2018-01-29] MEDS: LACTULOSE 20 GM/30 ML UDC (FOR ORAL USE ONLY) NGT SCH ×2 (12:57→17:54)
[2018-01-29] MEDS: DEXTROSE 5%-NORMAL SALINE 1,000 ML IV SCH (13:30)
--- NOTE | 2018-01-29 16:22 | EKG ---
Test Reason : Blood Pressure : / mmHG Vent. Rate : 082 BPM Atrial Rate : 082 BPM P-R Int : 144 ms QRS Dur : 082 ms QT Int : 382 ms P-R-T Axes : 041 064 064 degrees QTc Int : 446 ms NORMAL SINUS RHYTHM NONSPECIFIC T WAVE ABNORMALITY ABNORMAL ECG WHEN COMPARED WITH ECG OF 29-JAN-2018 08:46, NO SIGNIFICANT CHANGE WAS FOUND Confirmed by LAMAR SANDOVAL MD ([id number]) on 01/29/2018 4:22:13 PM Referred By: JAKE SANTIAGO Confirmed By:LAMAR SANDOVAL MD
--- NOTE | 2018-01-29 16:34 | EKG ---
Test Reason : Blood Pressure : / mmHG Vent. Rate : 079 BPM Atrial Rate : 079 BPM P-R Int : 146 ms QRS Dur : 082 ms QT Int : 396 ms P-R-T Axes : 054 069 065 degrees QTc Int : 454 ms NORMAL SINUS RHYTHM NONSPECIFIC T WAVE ABNORMALITY ABNORMAL ECG WHEN COMPARED WITH ECG OF 28-JAN-2018 00:26, NONSPECIFIC T WAVE ABNORMALITY NOW EVIDENT IN ANTEROLATERAL LEADS Confirmed by LORI BROWNE, LAMAR ([id number]) on 01/29/2018 4:34:03 PM Referred By: BUZZ LINARES DR Confirmed By:LAMAR SANDOVAL MD
--- NOTE | 2018-01-29 17:34 | PN ---
Teaching Attending Note Name of Resident: Ben Joya ATTENDING PHYSICIAN STATEMENT I saw and evaluated the patient. I reviewed the resident's note and discussed the case with the resident. I agree with the resident's findings and plan as documented with exceptions below. SUBJECTIVE: patient seen and examined. still confused, minimal verbal responses, denies any pain, knows is in [facility]. OBJECTIVE: Vital Signs Period Temp Pulse Resp BP Sys/Cherry Pulse Ox Last 24 Hr 96.4 F-98.9 F 77-104 10-18 125-163/62-97 99-99 Intake & Output 01/26/18 01/27/18 01/28/18 01/29/18 23:59 23:59 23:59 23:59 Intake Total 450 350 Output Total 1000 Balance 450 -650 Weight 193 lb 1.6 oz 195 lb 12.8 oz General: confused, but responding to few questions in no acute distress in bed Cvs:S1S2 regular Chest: decreased effort limited exam, but no rales or wheezing Abdomen:soft, NT Extremities: no edema, involuntary upper extremity tremors when attempt to passively elevated arms Home Medications Medication Instructions Recorded Rifaximin [Xifaxan -] 550 mg PO BID #60 tab 12/31/16 Furosemide [Lasix] 20 mg PO DAILY 01/28/18 Lactobacillus Acidophilus 1 each PO DAILY 01/28/18 [Acidophilus] Lactulose 30 gm PO Q4H 01/28/18 Magnesium Oxide 400 mg PO DAILY 01/28/18 Omeprazole 20 mg PO DAILY 01/28/18 Polyethylene Glycol 3350 [Miralax 17 gm PO DAILY 01/28/18 (For Daily Use) -] Sorafenib Tosylate [Nexavar] 400 mg PO BID 01/28/18 Spironolactone 50 mg PO DAILY 01/28/18 Trazodone HCl 50 mg PO HS 01/28/18 Home Medication List Medication Instructions Recorded Confirmed Type Furosemide [Lasix] 20 mg PO DAILY 01/28/18 01/28/18 History Lactobacillus Acidophilus 1 each PO DAILY 01/28/18 01/28/18 History [Acidophilus] Lactulose 30 gm PO Q4H 01/28/18 01/28/18 History Magnesium Oxide 400 mg PO DAILY 01/28/18 01/28/18 History Omeprazole 20 mg PO DAILY 01/28/18 01/28/18 History Polyethylene Glycol 3350 [Miralax 17 gm PO DAILY 01/28/18 01/28/18 History (For Daily Use) -] Sorafenib Tosylate [Nexavar] 400 mg PO BID 01/28/18 01/28/18 History Spironolactone 50 mg PO DAILY 01/28/18 01/28/18 History Trazodone HCl 50 mg PO HS 01/28/18 01/28/18 History Active Medications Amlodipine Besylate (Norvasc -) 5 mg NGT DAILY [facility] Last Admin: 01/29/18 09:56 Dose: 5 mg Chlorhexidine Gluconate (Hibiclens For Decolonization -) 1 applic TP HS [facility] Last Admin: 01/28/18 21:36 Dose: 1 applic Ceftriaxone Sodium 2 gm/ (Dextrose) 100 mls @ 100 mls/hr IVPB DAILY [facility] Last Admin: 01/29/18 09:52 Dose: 100 mls/hr Dextrose/Sodium Chloride (D5-Ns -) 1,000 mls @ 100 mls/hr IV ASDIR [facility] Last Admin: 01/29/18 13:30 Dose: 100 mls/hr Lactulose (Cephulac (Oral Use)) 45 gm NGT Q6HPO [facility] Last Admin: 01/29/18 12:57 Dose: 45 gm Levetiracetam (Keppra Injection -) 1,000 mg IVPB BID [facility] Last Admin: 01/29/18 12:56 Dose: 1,000 mg Mupirocin (Bactroban Ointment (For Decolonization) -) 1 applic NS BID [facility] Stop: 02/02/18 09:59 Last Admin: 01/29/18 09:58 Dose: 1 applic Pantoprazole Sodium (Protonix Iv) 40 mg IVPUSH DAILY [facility] Last Admin: 01/29/18 09:53 Dose: 40 mg Rifaximin (Xifaxan -) 550 mg PO BID [facility] Last Admin: 01/29/18 09:58 Dose: 550 mg Laboratory Results - last 24 hr 01/29/18 01/29/18 01/29/18 05:30 05:30 05:30 WBC 5.4 RBC 4.57 Hgb 14.4 D Hct 42.0 MCV 92.0 MCH 31.6 MCHC 34.3 RDW 13.8 Plt Count 125 L MPV 10.5 D Platelet Comment No clumping noted PT with INR INR Sodium 143 Potassium 4.1 Chloride 113 H Carbon Dioxide 23 D Anion Gap 7 L BUN 16 Creatinine 0.9 D Creat Clearance w eGFR > 60 POC Glucometer Random Glucose 89 Calcium 8.3 L Phosphorus 2.7 D Magnesium 1.9 Total Bilirubin 2.0 H AST 41 H ALT 28 Alkaline Phosphatase 103 D Ammonia 77.52 H Total Protein 7.2 Albumin 2.9 L 01/29/18 01/29/18 01/29/18 05:30 05:55 12:39 WBC RBC Hgb Hct MCV MCH MCHC RDW Plt Count MPV Platelet Comment PT with INR 15.10 H INR 1.34 H Sodium Potassium Chloride Carbon Dioxide Anion Gap BUN Creatinine Creat Clearance w eGFR POC Glucometer 100.91622 102.82798 Random Glucose Calcium Phosphorus Magnesium Total Bilirubin AST ALT Alkaline Phosphatase Ammonia Total Protein Albumin Abdominal US results noted ASSESSMENT AND PLAN: 67 yom with PMHx of HTN, CVA, traumatic subdural hematoma, polysubstance abuse (ETOH/cocaine), right hip replacement, CHF, Hep B and C, syphilis, cirrhosis, chronic liver disease, hepatic encephalopathy and GERD, admitted with AMS in 2016 felt to be combination of seizure/hepatic encephalopathy, readmitted with AMS -AMS,likely hepatic encephalopathy +/- seizures (no response to narcan and no evidence of hypoglycemia in the field) -Decompensated cirrhosis -?HCC,patient on nexavar -polysubstance abuse with ETOH/cocaine -HTN/tachycardia, ?from agitation/pain vs withdrawal. -Seizure disorder -Chronic Hep B and C -H/o CVA, traumatic subdural hematoma -?CHF -syphilis -GERD Plan: Mental status slowly improving with overnight agitation requiring versed. Continue NGT aggressive lactulose and rifaximin. No clear precipitating factors identified. H/h stable, Follow up FOBT. No clinical evidence of infectious process. ?from non compliance. Neurology input noted. Keppra IV BID, seizure precautions. Neuro Checks. Emperic ceftriaxone day 2 for SBP given vague abdominal exam/?tenderness on admission. Abdominal US with no ascitis. D/c in 24-48 hours if no concerns. GI input noted, MRI liver, AFP. Sister denies recent ETOH use, reports last use more than a year ago. Patient denies use. HTN/tachycardia with intermittent agitation since admission, ? withdrawal. Drug screen neg on admission. Continue D5NS while NPO. Hold lasix/aldactone for now. On Nexavar, ?HCC, follow up with GI. Amlodipine for BP. Minimize sedatives for now. DVTPPX with SCDs. Dispo pending clinical improvement. Total critical care time spent in ICU 45 min.
--- NOTE | 2018-01-29 19:26 | PN ---
Physical Exam: SUBJECTIVE: Patient seen and examined at bedside. Pt poorly responsive but AAO x 2. OBJECTIVE: Vital Signs Period Temp Pulse Resp BP Sys/Cherry Pulse Ox Last 24 Hr 96.4 F-98.9 F 70-104 10-18 125-154/62-97 99-99 Gen: somnolent, snoring, rousable HEENT: NCAT, pupils equal and responsive Neck: supple Cardio: RRR, s1s2, no murmurs Pulm: cta Abd: soft, no organomegally Laboratory Results - last 24 hr 01/29/18 01/29/18 01/29/18 05:30 05:30 05:30 WBC 5.4 RBC 4.57 Hgb 14.4 D Hct 42.0 MCV 92.0 MCH 31.6 MCHC 34.3 RDW 13.8 Plt Count 125 L MPV 10.5 D Platelet Comment No clumping noted PT with INR INR Sodium 143 Potassium 4.1 Chloride 113 H Carbon Dioxide 23 D Anion Gap 7 L BUN 16 Creatinine 0.9 D Creat Clearance w eGFR > 60 POC Glucometer Random Glucose 89 Calcium 8.3 L Phosphorus 2.7 D Magnesium 1.9 Total Bilirubin 2.0 H AST 41 H ALT 28 Alkaline Phosphatase 103 D Ammonia 77.52 H Total Protein 7.2 Albumin 2.9 L 01/29/18 01/29/18 01/29/18 05:30 05:55 12:39 WBC RBC Hgb Hct MCV MCH MCHC RDW Plt Count MPV Platelet Comment PT with INR 15.10 H INR 1.34 H Sodium Potassium Chloride Carbon Dioxide Anion Gap BUN Creatinine Creat Clearance w eGFR POC Glucometer 100.86972 102.26291 Random Glucose Calcium Phosphorus Magnesium Total Bilirubin AST ALT Alkaline Phosphatase Ammonia Total Protein Albumin 01/29/18 17:05 WBC RBC Hgb Hct MCV MCH MCHC RDW Plt Count MPV Platelet Comment PT with INR INR Sodium Potassium Chloride Carbon Dioxide Anion Gap BUN Creatinine Creat Clearance w eGFR POC Glucometer 109.60500 Random Glucose Calcium Phosphorus Magnesium Total Bilirubin AST ALT Alkaline Phosphatase Ammonia Total Protein Albumin Active Medications Generic Name Dose Route Start Last Admin Trade Name Freq PRN Reason Stop Dose Admin Amlodipine Besylate 5 mg 01/28/18 07:15 01/29/18 09:56 Norvasc - NGT 5 mg DAILY [facility] Administration Chlorhexidine Gluconate 1 applic 01/28/18 22:00 06/10/18 21:36 Hibiclens For Decolonization - TP 1 applic HS [facility] Administration Ceftriaxone Sodium 2 gm/ 100 mls @ 100 mls/hr 01/28/18 17:30 01/29/18 09:52 Dextrose IVPB 100 mls/hr DAILY [facility] Administration Dextrose/Sodium Chloride 1,000 mls @ 100 mls/hr 01/29/18 13:06 01/29/18 13:30 D5-Ns - IV 100 mls/hr ASDIR [facility] Administration Lactulose 45 gm 01/28/18 12:00 01/29/18 17:54 Cephulac (Oral Use) NGT 45 gm Q6HPO [facility] Administration Levetiracetam 1,000 mg 01/28/18 11:30 01/29/18 12:56 Keppra Injection - IVPB 1,000 mg BID [facility] Administration Mupirocin 1 applic 01/28/18 10:00 01/29/18 09:58 Bactroban Ointment (For Decolonization) - NS 02/02/18 09:59 1 applic BID [facility] Administration Pantoprazole Sodium 40 mg 01/28/18 17:15 01/29/18 09:53 Protonix Iv IVPUSH 40 mg DAILY [facility] Administration Rifaximin 550 mg 01/28/18 10:00 01/29/18 09:58 Xifaxan - PO 550 mg BID [facility] Administration ASSESSMENT/PLAN: Pt is a 67 y/o M with PMH Hep B, Hep C, cirrhosis, and hepatic encephalopathy who presented to ED BIBA for AMS after being found unresponsive. Pt was admitted for hepatic encephalopathy. #Hepatic encephalopathy -lactulose via NGT -rifaximin -Ammonia decreased -Tbili decreasing -Pt has been agitated requiring sedation -rocephin in case of SBP #HTN -Norvasc #? Seizure disorder -Had seizure in the past -Seen by neurology -on Keppra #FEN -D5NS -lytes wnl -NPO while altered #PPx -scds #Dispo -admitted to ICU Ben Joya MD PGY-1 IM Visit type - Emergency Visit Emergency Visit: No - New Patient This patient is new to me today: No - Critical Care Critical Care patient: No - Discharge Referral Referred to [facility] Med [facility] No
[2018-01-29] MEDS: CHLORHEXIDINE GLUCONATE 4% CLEANSER FOR DECOLONIZATION TP SCH (22:32)
[2018-01-30] MEDS: LACTULOSE 20 GM/30 ML UDC (FOR ORAL USE ONLY) NGT SCH ×4 (00:04→17:35)
--- NOTE | 2018-01-30 05:47 | PN ---
Physical Exam: SUBJECTIVE: Patient seen and examined at bed side in ICU No acute events over night , denies any abdominal pain or chest pain , no fever , no chills had 2 BM per nurse , asking to remove the NG tube AOx3 OBJECTIVE: Vital Signs Period Temp Pulse Resp BP Sys/Cherry Pulse Ox Last 24 Hr 96.4 F-98.9 F 70-95 10-19 106-149/47-97 99-99 GENERAL: AAOX3 IN NAD HEAD: Normal with no signs of trauma. EYES: PERRL, eomi, , sclera anicteric, conjunctiva clear. ENT: Ears normal, nares patent, oropharynx clear without exudates, moist mucous membranes. NECK: supple. LUNGS: CTA b/l , no wheezes, no crackles, no accessory muscle use. HEART: Regular rate and rhythm, S1, S2 without murmur, rub or gallop. ABDOMEN: Soft, nontender, nondistended, normoactive bowel sounds, no guarding, no rebound, EXTREMITIES: 2+ pulses, warm, well-perfused, no edema. NEUROLOGICAL: Cranial nerves II through XII grossly intact. Normal speech, gait not observed. PSYCH: Normal mood, normal affect. SKIN: Warm, dry, normal turgor, Laboratory Results - last 24 hr 01/29/18 01/29/18 01/29/18 05:30 05:30 05:30 WBC 5.4 RBC 4.57 Hgb 14.4 D Hct 42.0 MCV 92.0 MCH 31.6 MCHC 34.3 RDW 13.8 Plt Count 125 L MPV 10.5 D Platelet Comment No clumping noted PT with INR INR Sodium 143 Potassium 4.1 Chloride 113 H Carbon Dioxide 23 D Anion Gap 7 L BUN 16 Creatinine 0.9 D Creat Clearance w eGFR > 60 POC Glucometer Random Glucose 89 Calcium 8.3 L Phosphorus 2.7 D Magnesium 1.9 Total Bilirubin 2.0 H AST 41 H ALT 28 Alkaline Phosphatase 103 D Ammonia 77.52 H Total Protein 7.2 Albumin 2.9 L 01/29/18 01/29/18 01/29/18 05:30 05:55 12:39 WBC RBC Hgb Hct MCV MCH MCHC RDW Plt Count MPV Platelet Comment PT with INR 15.10 H INR 1.34 H Sodium Potassium Chloride Carbon Dioxide Anion Gap BUN Creatinine Creat Clearance w eGFR POC Glucometer 100.77721 102.63133 Random Glucose Calcium Phosphorus Magnesium Total Bilirubin AST ALT Alkaline Phosphatase Ammonia Total Protein Albumin 01/29/18 17:05 WBC RBC Hgb Hct MCV MCH MCHC RDW Plt Count MPV Platelet Comment PT with INR INR Sodium Potassium Chloride Carbon Dioxide Anion Gap BUN Creatinine Creat Clearance w eGFR POC Glucometer 109.34163 Random Glucose Calcium Phosphorus Magnesium Total Bilirubin AST ALT Alkaline Phosphatase Ammonia Total Protein Albumin Active Medications Generic Name Dose Route Start Last Admin Trade Name Ty PRN Reason Stop Dose Admin Amlodipine Besylate 5 mg 01/28/18 07:15 01/29/18 09:56 Norvasc - NGT 5 mg DAILY [facility] Administration Chlorhexidine Gluconate 1 applic 01/28/18 22:00 01/29/18 22:32 Hibiclens For Decolonization - TP 1 applic HS [facility] Administration Ceftriaxone Sodium 2 gm/ 100 mls @ 100 mls/hr 01/28/18 17:30 01/29/18 09:52 Dextrose IVPB 100 mls/hr DAILY [facility] Administration Dextrose/Sodium Chloride 1,000 mls @ 100 mls/hr 01/29/18 13:06 01/29/18 13:30 D5-Ns - IV 100 mls/hr ASDIR [facility] Administration Lactulose 45 gm 01/28/18 12:00 01/29/18 17:54 Cephulac (Oral Use) NGT 45 gm Q6HPO [facility] Administration Levetiracetam 1,000 mg 01/28/18 11:30 01/29/18 22:32 Keppra Injection - IVPB 1,000 mg BID [facility] Administration Mupirocin 1 applic 01/28/18 10:00 01/29/18 22:32 Bactroban Ointment (For Decolonization) - NS 02/02/18 09:59 1 applic BID [facility]UL Administration Pantoprazole Sodium 40 mg 01/28/18 17:15 01/29/18 09:53 Protonix Iv IVPUSH 40 mg DAILY [facility] Administration Rifaximin 550 mg 01/28/18 10:00 01/29/18 22:32 Xifaxan - PO 550 mg BID PAUL Administration CBC, BMP 01/30/18 06:00 01/30/18 06:00 CXR 01/29/18 No evidence of acute pulmonary disease Abdominal US 01/28/18 no acute pathology Head CT scan: 01/28/18: No intracranical hemorrhage, hydrocephalus ir acute pathology ASSESSMENT/PLAN: 67 yo M with PMHx of HTN, CVA, traumatic subdural hematoma, polysubstance abuse (ETOH/cocaine), Hep B and C, syphilis, cirrhosis, chronic liver disease, hepatic encephalopathy and GERD, admitted for AMS khadijah to hepatic encephalopathy . # Neurology *AMS due to hepatic encephalopathy vs siezure vs CVA vs substance abuse * CT head with no acute pathology * Denies any subtance use * pt skipped Rifaximin * to day AAOx3 * had a h/o seizure , will continue prophylaxis * on ceftriaxone will consider to stop due to thrombocytopenia # GI Elevated AFP Hep B,C possible HepCC liver cirrhosis * pt denies any N/V,abdominal pain * had BMx2 * Amonia 80 today, Bili 3 copare to 2 yesterday * reports compliance with his meds but he skipped Rifaximine couple times * continue Lactulose 45 mg po q 6hr , Rifaximin * pt has Abdomen MRI schedulled for 02/05 , he is on list for transplant at [place] * ant emetics PRN * DC NG tube * repeat CBC, CMP , P, MG in AM #Cardio HTN CHF * monitor BP , restart home meds Norvasc 5 mg po daily , lasix 20 mh po daily , spirnolactone 50 mg po daily * CHF in no acute exacerbation , no volume overloaded signs # Hem/onco * thrombocytopenia plt 90 * DC protonix * no active bleeding * monitor #FEN * F: D5-NS @ 100 CC/hr * E: monitor and replenished as needed * N: Low sodium diet #Proph * DVTS: SCDS B/L , Hep SQ TID * GI: Ranitidine 150 BID (Dc protonix due to thrombocytopenia ) #Dispo * transfer [facility] * Full code Visit type - Emergency Visit Emergency Visit: Yes ED Registration Date: 01/28/18 Care time: The patient presented to the Emergency Department on the above date and was hospitalized for further evaluation of their emergent condition. - New Patient This patient is new to me today: Yes Date on this admission: 01/30/18 - Critical Care Critical Care patient: Yes Total Critical Care Time (in minutes): 45 Critical Care Statement: The care of this patient involved high complexity decision making to prevent further life threatening deterioration of the patient 's condition and/or to evaluate & treat vital organ system(s) failure or risk of failure.
[2018-01-30 06:18] LABS: BASO % 0.6 % (0-2.0); EOS % 2.1 % (0-4.5); HEMATOCRIT 39.8 % (35.4-49); HEMOGLOBIN 13.6 GM/dL (11.7-16.9); LYMPH % 17.3 % (8-40); MCH 31.7 pg (25.7-33.7); MCHC 34.1 g/dl (32.0-35.9); MEAN CELL VOLUME 92.9 fl (80-96); MEAN PLT VOLUME 9.1 fl (7.5-11.1); MONO % 17.6 % (3.8-10.2); NEUT % 62.4 % (42.8-82.8); PLATELET COUNT 92 K/MM3 (134-434); RBC 4.28 M/mm3 (4.00-5.60); RDW 13.9 % (11.9-15.9); WHITE BLOOD COUNT 4.4 K/mm3 (4.0-10.0)
[2018-01-30 06:40] LABS: CHLORIDE 113 mmol/L (98-107); POTASSIUM 3.6 mmol/L (3.5-5.1); SODIUM 143 mmol/L (136-145)
[2018-01-30 06:47] LABS: ALBUMIN 2.7 g/dl (3.4-5.0); ALK PHOS 94 U/L (45-117); ANION GAP 6 (8-16); BLOOD UREA NITROGEN 15 mg/dL (7-18); CALCIUM 7.7 mg/dL (8.5-10.1); CO2 24 mmol/L (21-32); CREATININE 0.8 mg/dL (0.7-1.3); GLUCOSE,RANDOM 81 mg/dL (74-106); SGOT/AST 34 U/L (15-37); SGPT/ALT 23 U/L (12-78); TOT PROT 6.7 g/dl (6.4-8.2)
[2018-01-30 06:53] LABS: ALBUMIN 2.6 g/dl (3.4-5.0); BILIRUBIN,DIRECT 0.7 mg/dL (0.0-0.2); BILIRUBIN,TOTAL 2.6 mg/dL (0.2-1.0); TOT PROT 6.7 g/dl (6.4-8.2)
[2018-01-30] MEDS ORDERED: levETIRAcetam 500 MG/5 ML INJECTION VIAL IVPB ONE (09:46)
[2018-01-30] MEDS: RIFAXIMIN 550 MG TABLET (UD) PO SCH ×2 (09:59→23:27)
[2018-01-30] MEDS: MUPIROCIN 2% TOPICAL OINTMENT FOR DECOLONIZATION NS SCH (09:59)
[2018-01-30] MEDS: CEFTRIAXONE 2 GM in DEXTROSE 5%-WATER 100 ML IVPB SCH (09:59)
[2018-01-30] MEDS: PANTOPRAZOLE SODIUM 40 MG VIAL IVPUSH SCH (09:59)
[2018-01-30] MEDS ORDERED: amLODIPine BESYLATE 5 MG TABLET (FP) PO SCH (10:00)
[2018-01-30] MEDS ORDERED: POLYETHYLENE GLYCOL 3350 119 GM BTL PO SCH (10:15)
[2018-01-30] MEDS: levETIRAcetam 500 MG/5 ML INJECTION VIAL IVPB SCH ×4 (10:20→23:28)
[2018-01-30] MEDS ORDERED: MAGNESIUM OXIDE 400 MG TABLET (FP) PO SCH (11:15)
[2018-01-30] MEDS ORDERED: FUROSEMIDE 20 MG TABLET (FP) PO SCH (11:15)
[2018-01-30] MEDS ORDERED: SPIRONOLACTONE 25 MG TABLET (FP) PO SCH (11:30)
[2018-01-30] MEDS ORDERED: LACTOBACILLUS ACIDOPHILUS 1 TABLET PO SCH (11:30)
[2018-01-30] MEDS: LACTULOSE 20 GM/30 ML UDC (FOR ORAL USE ONLY) PO SCH ×3 (11:41→23:10)
--- NOTE | 2018-01-30 11:53 | PN ---
Teaching Attending Note Name of Resident: Ben Joya ATTENDING PHYSICIAN STATEMENT I saw and evaluated the patient. I reviewed the resident's note and discussed the case with the resident. I agree with the resident's findings and plan as documented. SUBJECTIVE:does not recall anything that happened prior to monday. states he thinks he was in his normal state of health did note he may have been dizzy prior to that but does not know when. claims medication complaince. was placed on lactulose because he was not having frequent enough BM. is following with GI very closely and has MRI scheduled on 02/05, and on the transplant list. denies Cp, SOB, fever, chills, N/V/C/D OBJECTIVE: Last Vital Signs Temp Pulse Resp BP Pulse Ox 98.4 F 83 14 139/95 97 01/30/18 10:01/30/18 10:00 01/30/18 10:00 01/30/18 10:01/30/18 09:00 General NAD. slow to respond CV S1 S2 RRR no murmur/rub/gallop Lungs CTA B/L no wheezing/rales/rhonchi Abdomen soft NT/ND no fluid wave Extremities no pedal edema, no asterixis ASSESSMENT AND PLAN: 67 yo M with PMHx of HTN, CVA, traumatic subdural hematoma, polysubstance abuse (ETOH/cocaine), right hip replacement, CHF, Hep B and C, syphilis, cirrhosis, chronic liver disease, hepatic encephalopathy and GERD, admitted with AMS in 12/2016 felt to be combination of seizure/hepatic encephalopathy, readmitted with AMS 1. Acute hepatic encephalopathy- claims medication compliance. says he sees GI very frequently. now at baseline. cont to titrate lactulose to 2-3BM/day. if not able to tolerate at home will cont with rifaximin. will d/c ceftriaxone for concerning SBP as pt has no ascites and has returned to baseline. is reporting that he is on transplant list. hold sedating medication, hold hepatotoxic medications. GI on board 2. Seizure- similar presentation last year and was started on keppra at that time due to bladder/bowel incontinence. was stopped and then re-started. evaluated by neuro here and determined to continue at this time. cont keppra. seizure precautions 3. Elevated AFP- possible known HCC?. has scheduled MRI on 02/[address]. [address] call out to GI to follow up and obtain collateral information. and confirm compliance. 4. 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 as above 5. HTN- above goal. will need to verify home medications and restart 6. Remote polysubstance abuse- as per sister last use was a year ago 7. CHF- no signs of volume overload. advance diet. d/c IVF if tolerating. restart home medication 8. DVT ppx- start hep sq if no contraindication 9. can downgrade to medical floors. PT eval, can d/c zapata The care of this patient involved high complexity decision making to prevent further life threatening deterioration of the patient's condition and/or to evaluate & treat vital organ system(s) failure or risk of failure. Critical care time spent in reviewing chart, evaluating patient and formulating plan - 45 minutes.
[2018-01-30] MEDS ORDERED: RANITIDINE HCL 150 MG TABLET (FP) PO SCH (12:00)
--- NOTE | 2018-01-30 12:12 | PN ---
Teaching Attending Note Name of Resident: Alec Piedra ATTENDING PHYSICIAN STATEMENT I saw and evaluated the patient. I reviewed the resident's note and discussed the case with the resident. I agree with the resident's findings and plan as documented. SUBJECTIVE: Pt seen and examined in the ICU. Mental status much improved, at baseline per family at bedside. OBJECTIVE: Vital Signs Period Temp Pulse Resp BP Sys/Cherry Pulse Ox Last 24 Hr 97.5 F-98.7 F 70-95 10-19 106-164/47-95 97-99 Intake & Output 01/27/18 01/28/18 01/29/18 01/30/18 23:59 23:59 23:59 23:59 Intake Total 450 1845 1000 Output Total 1200 300 Balance 450 645 700 Weight 87.589 kg 88.813 kg 86.273 kg Gen: NAD at rest Heart: RRR Lung: decreased breath sounds at the bases Abd: soft, nontender Ext: no edema CBC, BMP 01/30/18 06:00 01/30/18 06:00 Active Medications Amlodipine Besylate (Norvasc -) 5 mg PO DAILY [facility] Last Admin: 01/30/18 09:59 Dose: 5 mg Chlorhexidine Gluconate (Hibiclens For Decolonization -) 1 applic TP HS [facility] Last Admin: 01/29/18 22:32 Dose: 1 applic Furosemide (Lasix -) 20 mg PO DAILY [facility] Last Admin: 01/30/18 11:38 Dose: 20 mg Dextrose/Sodium Chloride (D5-Ns -) 1,000 mls @ 100 mls/hr IV ASDIR [facility] Last Admin: 01/29/18 13:30 Dose: 100 mls/hr Lactobacillus Acidophilus (Bacid -) 1 tab PO DAILY [facility] Last Admin: 01/30/18 11:39 Dose: 1 tab Lactulose (Cephulac (Oral Use)) 45 gm PO Q6HPO [facility] Last Admin: 01/30/18 11:41 Dose: 45 gm Levetiracetam (Keppra Injection -) 1,000 mg IVPB BID [facility] Last Admin: 01/30/18 10:20 Dose: 1,000 mg Magnesium Oxide (Mag-Ox -) 400 mg PO DAILY [facility] Last Admin: 01/30/18 11:40 Dose: 400 mg Mupirocin (Bactroban Ointment (For Decolonization) -) 1 applic NS BID [facility] Stop: 02/02/18 09:59 Last Admin: 01/30/18 09:59 Dose: 1 applic Pantoprazole Sodium (Protonix Iv) 40 mg IVPUSH DAILY [facility] Last Admin: 01/30/18 09:59 Dose: 40 mg Polyethylene Glycol (Miralax (For Daily Use) -) 17 gm PO DAILY [facility] Last Admin: 01/30/18 11:38 Dose: 17 grams Ranitidine HCl (Zantac -) 150 mg PO BID [facility] Rifaximin (Xifaxan -) 550 mg PO BID [facility] Last Admin: 01/30/18 09:59 Dose: 550 mg Spironolactone (Aldactone -) 50 mg PO DAILY [facility] Last Admin: 01/30/18 11:40 Dose: 50 mg Trazodone HCl (Desyrel -) 50 mg PO HS [facility] ASSESSMENT AND PLAN: Hepatic Encephalopathy Liver Cirrhosis Hep B/C h/o Polysubstance Abuse Hepatocellular Carcinoma HTN Seizure Disorder h/o CVA Thrombocytopenia - continue lactulose, rifaximin - on empiric antibiotics, consider d/c as pt becoming thrombocytopenic - change PPI to ranitidine - antiepileptics - DVT prophylaxis - can monitor on floor
--- NOTE | 2018-01-30 14:05 | PN ---
Progress Note (short form) - Note Progress Note: 67 year old male hsitory of Hep B, Hep C, Cirrhosis and had seizure during last admission. Patient was found to be unrepsonsive. He is being treated for hepatic encephalopathy. He has no fever or seizure activity while in hospital. He has been treated for Hepatic Encephalopathy, He is markedly better today. He is able to make conversation and sitting in chair. He said he want to stop keppra, as there was confusion about seizure. Neurological Examination alert oriented x 3, no neck stiffness EOMI, pupils reactive, no face asymmetry rest of exam is noraml Ct head is unremarkable Assessment- Heptic encephalopathy, clinically improved. As per patient he never had seizure or epilepsy. Plan- Continue keppra for now , would verify information from second source and would taper to d/c as outpatient in two or three weeks. - Continue supportive care as per ICU Thanking you so much Nj Hanna MD
--- NOTE | 2018-01-30 16:05 | PN ---
<Jax Salcedo - Last Filed: 01/30/18 18:09> Progress Note, Physician - Current Medication List Current Medications: Active Medications Amlodipine Besylate (Norvasc -) 5 mg PO DAILY PAUL Chlorhexidine Gluconate (Hibiclens For Decolonization -) 1 applic TP HS PAUL Furosemide (Lasix -) 20 mg PO DAILY PAUL Lactobacillus Acidophilus (Bacid -) 1 tab PO DAILY PAUL Lactulose (Cephulac (Oral Use)) 45 gm PO Q6HPO PAUL Levetiracetam (Keppra Injection -) 1,000 mg IVPB BID PAUL Magnesium Oxide (Mag-Ox -) 400 mg PO DAILY PAUL Mupirocin (Bactroban Ointment (For Decolonization) -) 1 applic NS BID PAUL Stop: 02/02/18 09:59 Polyethylene Glycol (Miralax (For Daily Use) -) 17 gm PO DAILY PAUL Ranitidine HCl (Zantac -) 150 mg PO BID PAUL Rifaximin (Xifaxan -) 550 mg PO BID PAUL Spironolactone (Aldactone -) 50 mg PO DAILY PAUL Trazodone HCl (Desyrel -) 50 mg PO HS PAUL - Objective Vital Signs: Vital Signs Temperature 97.8 F 01/30/18 16:00 Pulse Rate 81 01/30/18 16:00 Respiratory Rate 20 01/30/18 16:00 Blood Pressure 148/94 01/30/18 16:00 O2 Sat by Pulse Oximetry (%) 97 01/30/18 09:00 Labs: CBC, BMP 01/30/18 06:00 01/30/18 06:00 INR, PTT INR 1.34 (0.82-1.09) H 01/29/18 05:30 <Brenda Nesbitt - Last Filed: 02/01/18 12:24> Progress Note, Physician History of Present Illness: Patient seen and examined by me at bedside. No overnight events noted. Patient today is awake, alert and oriented. Patient has no recollection of what happened in the last three days. Patient reports he's been compliant with his medication at home and following a haptologist in [facility] and is scheduled for an MRI on 02/05/18). States he's had over 5 bowel movements today. Otherwise, patient denies fever, chills, nausea, vomiting, abdominal pain, palpitations, shortness of breath, chest pain, constipation. - Current Medication List Current Medications: Active Medications Amlodipine Besylate (Norvasc -) 5 mg PO DAILY [facility] Last Admin: 01/30/18 09:59 Dose: 5 mg Chlorhexidine Gluconate (Hibiclens For Decolonization -) 1 applic TP HS [facility] Last Admin: 01/29/18 22:32 Dose: 1 applic Furosemide (Lasix -) 20 mg PO DAILY [facility] Last Admin: 01/30/18 11:38 Dose: 20 mg Dextrose/Sodium Chloride (D5-Ns -) 1,000 mls @ 100 mls/hr IV ASDIR [facility] Last Admin: 01/29/18 13:30 Dose: 100 mls/hr Lactobacillus Acidophilus (Bacid -) 1 tab PO DAILY [facility] Last Admin: 01/30/18 11:39 Dose: 1 tab Lactulose (Cephulac (Oral Use)) 45 gm PO Q6HPO [facility] Last Admin: 01/30/18 11:41 Dose: 45 gm Levetiracetam (Keppra Injection -) 1,000 mg IVPB BID [facility] Last Admin: 01/30/18 10:20 Dose: 1,000 mg Magnesium Oxide (Mag-Ox -) 400 mg PO DAILY [facility] Last Admin: 01/30/18 11:40 Dose: 400 mg Mupirocin (Bactroban Ointment (For Decolonization) -) 1 applic NS BID [facility] Stop: 02/02/18 09:59 Last Admin: 01/30/18 09:59 Dose: 1 applic Polyethylene Glycol (Miralax (For Daily Use) -) 17 gm PO DAILY [facility] Last Admin: 01/30/18 11:38 Dose: 17 grams Ranitidine HCl (Zantac -) 150 mg PO BID [facility] Last Admin: 01/30/18 13:13 Dose: 150 mg Rifaximin (Xifaxan -) 550 mg PO BID [facility] Last Admin: 01/30/18 09:59 Dose: 550 mg Spironolactone (Aldactone -) 50 mg PO DAILY [facility] Last Admin: 01/30/18 11:40 Dose: 50 mg Trazodone HCl (Desyrel -) 50 mg PO [facility] - Objective Vital Signs: Vital Signs Temperature 98.5 F 01/30/18 12:00 Pulse Rate 88 01/30/18 14:00 Respiratory Rate 20 01/30/18 14:00 Blood Pressure 149/97 01/30/18 14:00 O2 Sat by Pulse Oximetry (%) 97 01/30/18 09:00 Constitutional: Yes: No Distress, Calm Eyes: Yes: Sclera Icterus Cardiovascular: Yes: WNL, Regular Rate and Rhythm. No: Tachycardia, Pulse Irregular, Bruit, JVD Respiratory: Yes: WNL, Regular, CTA Bilaterally. No: Accessory Muscle Use, Rales, Rhonchi, SOB, Tachypnea, Wheezes Gastrointestinal: Yes: Normal Bowel Sounds, Soft, Distention (mild). No: Tenderness, Epigastrium, Tenderness, Rebound, Vomiting Extremities: Yes: WNL. No: Calf Tenderness, Cold, Cool Edema: No Neurological: Yes: Other ((+) mild asterixis) Labs: CBC, BMP 01/30/18 06:00 01/30/18 06:00 INR, PTT INR 1.34 (0.82-1.09) H 01/29/18 05:30 Laboratory Tests 01/30/18 01/30/18 06:00 06:00 Total Bilirubin 2.6 H Direct Bilirubin 0.7 H AST 35 ALT 24 Alkaline Phosphatase 96 Ammonia 80.4 H Problem List - Problems (1) Altered mental status Assessment/Plan: -Likely secondary to Hepatic Encephalopathy but now resolved - Patient reports medication compliance. Continue Lactulose and titrate to 4-5 bowel movements daily. Continue Rifaximin. Code(s): R41.82 - ALTERED MENTAL STATUS, UNSPECIFIED Qualifiers: Altered mental status type: unspecified Qualified Code(s): R41.82 - Altered mental status, unspecified (2) Hepatic encephalopathy Assessment/Plan: -Ammonia level slihghtly elevated but will not base degree of encephalopathy on ammonia levels -Continue to Titrate Lactulose to 4-5 daily movements -Patient follows GI specialist and Haptologist at [facility]. Set to have Liver MRI 02/05/18 as outpatient in [facility]. Patient is currently on the liver transplant list. -AFP levels elevated as patient has possible history of HCC -Continue Daily hepatic panel monitoring Code(s): K72.90 - HEPATIC FAILURE, UNSPECIFIED WITHOUT COMA Visit type - Emergency Visit Emergency Visit: Yes ED Registration Date: 06/10/18 Care time: The patient presented to the Emergency Department on the above date and was hospitalized for further evaluation of their emergent condition. - New Patient This patient is new to me today: Yes Date on this admission: 01/28/18 - Critical Care Critical Care patient: Yes Total Critical Care Time (in minutes): 45 Critical Care Statement: The care of this patient involved high complexity decision making to prevent further life threatening deterioration of the patient 's condition and/or to evaluate & treat vital organ system(s) failure or risk of failure.
--- NOTE | 2018-01-30 16:06 | PN ---
Physical Exam: SUBJECTIVE: Patient seen and examined at bedside. Conversant today. AAOx3. OBJECTIVE: Vital Signs Period Temp Pulse Resp BP Sys/Cherry Pulse Ox Last 24 Hr 97.5 F-98.5 F 70-106 10-20 106-164/47-99 97-99 Gen: NAD, alert, oriented HEENT: NCAT, pupils equal and responsive Neck: supple, no jvd Cardio: RRR, s1s2, no murmurs Pulm: cta Abd: soft, no organomegally Ext: no tremors, 2+ pulses, no edema Laboratory Results - last 24 hr 01/29/18 01/29/18 01/29/18 05:55 12:39 13:02 WBC RBC Hgb Hct MCV MCH MCHC RDW Plt Count MPV Absolute Neuts (auto) Neutrophils % Lymphocytes % Monocytes % Eosinophils % Basophils % Nucleated RBC % Sodium Potassium Chloride Carbon Dioxide Anion Gap BUN Creatinine Creat Clearance w eGFR POC Glucometer 100.09366 102.90858 Random Glucose Calcium Total Bilirubin Direct Bilirubin AST ALT Alkaline Phosphatase Ammonia Total Protein Albumin Tumor Marker AFP 95.2 H 01/29/18 01/30/18 01/30/18 17:05 00:56 05:57 WBC RBC Hgb Hct MCV MCH MCHC RDW Plt Count MPV Absolute Neuts (auto) Neutrophils % Lymphocytes % Monocytes % Eosinophils % Basophils % Nucleated RBC % Sodium Potassium Chloride Carbon Dioxide Anion Gap BUN Creatinine Creat Clearance w eGFR POC Glucometer 109.27123 104.79220 103.67620 Random Glucose Calcium Total Bilirubin Direct Bilirubin AST ALT Alkaline Phosphatase Ammonia Total Protein Albumin Tumor Marker AFP 01/30/18 01/30/18 01/30/18 06:00 06:00 06:00 WBC 4.4 RBC 4.28 Hgb 13.6 Hct 39.8 MCV 92.9 MCH 31.7 MCHC 34.1 RDW 13.9 Plt Count 92 L D MPV 9.1 D Absolute Neuts (auto) 2.7 Neutrophils % 62.4 D Lymphocytes % 17.3 D Monocytes % 17.6 H D Eosinophils % 2.1 D Basophils % 0.6 Nucleated RBC % 0 Sodium 143 Potassium 3.6 Chloride 113 H Carbon Dioxide 24 Anion Gap 6 L BUN 15 Creatinine 0.8 Creat Clearance w eGFR > 60 POC Glucometer Random Glucose 81 Calcium 7.7 L Total Bilirubin 3.0 H D 2.6 H Direct Bilirubin 0.7 H AST 34 35 ALT 23 24 Alkaline Phosphatase 94 96 Ammonia Total Protein 6.7 6.7 Albumin 2.7 L 2.6 L Tumor Marker AFP 01/30/18 06:00 WBC RBC Hgb Hct MCV MCH MCHC RDW Plt Count MPV Absolute Neuts (auto) Neutrophils % Lymphocytes % Monocytes % Eosinophils % Basophils % Nucleated RBC % Sodium Potassium Chloride Carbon Dioxide Anion Gap BUN Creatinine Creat Clearance w eGFR POC Glucometer Random Glucose Calcium Total Bilirubin Direct Bilirubin AST ALT Alkaline Phosphatase Ammonia 80.4 H Total Protein Albumin Tumor Marker AFP Active Medications Generic Name Dose Route Start Last Admin Trade Name Freq PRN Reason Stop Dose Admin Amlodipine Besylate 5 mg 01/30/18 10:00 01/30/18 09:59 Norvasc - PO 5 mg DAILY PAUL Administration Chlorhexidine Gluconate 1 applic 01/28/18 22:00 01/29/18 22:32 Hibiclens For Decolonization - TP 1 applic HS PAUL Administration Furosemide 20 mg 01/30/18 11:15 01/30/18 11:38 Lasix - PO 20 mg DAILY PAUL Administration Dextrose/Sodium Chloride 1,000 mls @ 100 mls/hr 01/29/18 13:06 01/29/18 13:30 D5-Ns - IV 100 mls/hr ASDIR PAUL Administration Lactobacillus Acidophilus 1 tab 01/30/18 11:30 01/30/18 11:39 Bacid - PO 1 tab DAILY PAUL Administration Lactulose 45 gm 01/30/18 07:28 01/30/18 11:41 Cephulac (Oral Use) PO 45 gm Q6HPO PAUL Administration Levetiracetam 1,000 mg 01/28/18 11:30 01/30/18 10:20 Keppra Injection - IVPB 1,000 mg BID PAUL Administration Magnesium Oxide 400 mg 01/30/18 11:15 01/30/18 11:40 Mag-Ox - PO 400 mg DAILY PAUL Administration Mupirocin 1 applic 01/28/18 10:00 01/30/18 09:59 Bactroban Ointment (For Decolonization) - NS 02/02/18 09:59 1 applic BID PAUL Administration Polyethylene Glycol 17 gm 01/30/18 10:15 01/30/18 11:38 Miralax (For Daily Use) - PO 17 grams DAILY PAUL Administration Ranitidine HCl 150 mg 01/30/18 12:00 01/30/18 13:13 Zantac - PO 150 mg BID PAUL Administration Rifaximin 550 mg 01/28/18 10:00 01/30/18 09:59 Xifaxan - PO 550 mg BID PAUL Administration Spironolactone 50 mg 01/30/18 11:30 01/30/18 11:40 Aldactone - PO 50 mg DAILY PAUL Administration Trazodone HCl 50 mg 01/30/18 22:00 Desyrel - PO HS PAUL ASSESSMENT/PLAN: Pt is a 67 y/o M with PMH Hep B, Hep C, cirrhosis, and hepatic encephalopathy who presented to ED BIBA for AMS after being found unresponsive. Pt was admitted for hepatic encephalopathy. 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 Sw[facility] Pt has MRI scheduled for the , so Dr. Swanson requested that no MRI be done here at this time. #HTN -Norvasc #? Seizure disorder -Had seizure in the past -Seen by neurology -on [facility] #FEN -D5NS -lytes wnl -NPO while altered #PPx -scds -protonix switched to ranitidine due to risk of thrombocytopenia #Dispo -for transfer off ICU Ben Joya MD PGY-1 IM Visit type - Emergency Visit Emergency Visit: No - New Patient This patient is new to me today: No - Critical Care Critical Care patient: No - Discharge Referral Referred to [facility] Med P.C.: No
[2018-01-30] MEDS: DEXTROSE 5%-NORMAL SALINE 1,000 ML IV SCH (17:35)
[2018-01-30] MEDS ORDERED: MUPIROCIN 2% TOPICAL OINTMENT FOR DECOLONIZATION NS SCH (22:00)
[2018-01-30] MEDS ORDERED: CHLORHEXIDINE GLUCONATE 4% CLEANSER FOR DECOLONIZATION TP SCH (22:00)
[2018-01-30] MEDS ORDERED: traZODone HCL 50 MG TABLET (FP) PO SCH ×2 (22:00)
[2018-01-30] MEDS: RANITIDINE HCL 150 MG TABLET (FP) PO SCH (23:11)
[2018-01-31] MEDS: LACTULOSE 20 GM/30 ML UDC (FOR ORAL USE ONLY) PO SCH ×2 (06:21→14:12)
[2018-01-31 08:14] LABS: BASO % 0.8 % (0-2.0); EOS % 3.9 % (0-4.5); HEMATOCRIT 37.7 % (35.4-49); LYMPH % 22.5 % (8-40); MCHC 34.6 g/dl (32.0-35.9); MEAN CELL VOLUME 92.5 fl (80-96); MEAN PLT VOLUME 9.4 fl (7.5-11.1); MONO % 15.5 % (3.8-10.2); NEUT % 57.3 % (42.8-82.8); PLATELET COUNT 100 K/MM3 (134-434); RBC 4.08 M/mm3 (4.00-5.60); WHITE BLOOD COUNT 3.6 K/mm3 (4.0-10.0)
[2018-01-31 08:17] LABS: ALBUMIN 2.6 g/dl (3.4-5.0); ALK PHOS 100 U/L (45-117); ANION GAP 9 (8-16); BILIRUBIN,TOTAL 1.8 mg/dL (0.2-1.0); BLOOD UREA NITROGEN 17 mg/dL (7-18); CALCIUM 7.8 mg/dL (8.5-10.1); CHLORIDE 107 mmol/L (98-107); CO2 25 mmol/L (21-32); GLUCOSE,RANDOM 80 mg/dL (74-106); PHOSPHOROUS 2.6 mg/dL (2.5-4.9); POTASSIUM 3.4 mmol/L (3.5-5.1); SGOT/AST 33 U/L (15-37); SGPT/ALT 23 U/L (12-78); SODIUM 141 mmol/L (136-145); TOT PROT 6.6 g/dl (6.4-8.2)
[2018-01-31] MEDS ORDERED: PT OWN MED DRAWER 7, Y5N ONE (09:46)
[2018-01-31] MEDS: levETIRAcetam 500 MG/5 ML INJECTION VIAL IVPB SCH (09:50)
[2018-01-31] MEDS: RANITIDINE HCL 150 MG TABLET (FP) PO SCH (09:51)
[2018-01-31] MEDS: RIFAXIMIN 550 MG TABLET (UD) PO SCH (09:51)
[2018-01-31] MEDS ORDERED: POLYETHYLENE GLYCOL 3350 119 GM BTL PO SCH (10:00)
[2018-01-31] MEDS ORDERED: SPIRONOLACTONE 25 MG TABLET (FP) PO SCH (10:00)
[2018-01-31] MEDS ORDERED: LACTOBACILLUS ACIDOPHILUS 1 TABLET PO SCH (10:00)
[2018-01-31] MEDS ORDERED: MAGNESIUM OXIDE 400 MG TABLET (FP) PO SCH (10:00)
[2018-01-31] MEDS ORDERED: amLODIPine BESYLATE 5 MG TABLET (FP) PO SCH (10:00)
[2018-01-31] MEDS ORDERED: FUROSEMIDE 20 MG TABLET (FP) PO SCH (10:00)
--- NOTE | 2018-01-31 10:38 | PN ---
Progress Note, Physician History of Present Illness: AAOx3, comfortable. - Current Medication List Current Medications: Active Medications Amlodipine Besylate (Norvasc -) 5 mg PO DAILY [facility] Last Admin: 01/31/18 09:49 Dose: 5 mg Furosemide (Lasix -) 20 mg PO DAILY [facility] Last Admin: 01/31/18 09:50 Dose: 20 mg Lactobacillus Acidophilus (Bacid -) 1 tab PO DAILY [facility] Last Admin: 01/31/18 09:50 Dose: 1 tab Lactulose (Cephulac (Oral Use)) 45 gm PO Q6HPO [facility] Last Admin: 01/31/18 06:21 Dose: 45 gm Levetiracetam (Keppra Injection -) 1,000 mg IVPB BID [facility] Last Admin: 01/31/18 09:50 Dose: 1,000 mg Magnesium Oxide (Mag-Ox -) 400 mg PO DAILY [facility] Last Admin: 01/31/18 09:50 Dose: 400 mg Polyethylene Glycol (Miralax (For Daily Use) -) 17 gm PO DAILY [facility] Last Admin: 01/31/18 09:54 Dose: 17 gm Ranitidine HCl (Zantac -) 150 mg PO BID [facility] Last Admin: 01/31/18 09:51 Dose: 150 mg Rifaximin (Xifaxan -) 550 mg PO BID [facility] Last Admin: 01/31/18 09:51 Dose: 550 mg Spironolactone (Aldactone -) 50 mg PO DAILY [facility] Last Admin: 01/31/18 09:51 Dose: 50 mg Trazodone HCl (Desyrel -) 50 mg PO HS [facility] Last Admin: 01/30/18 23:11 Dose: 50 mg - Objective Vital Signs: Vital Signs Temperature 98.4 F 01/31/18 06:00 Pulse Rate 72 01/31/18 06:00 Respiratory Rate 20 01/31/18 06:00 Blood Pressure 110/69 01/31/18 06:00 O2 Sat by Pulse Oximetry (%) 97 01/30/18 21:00 Constitutional: Yes: No Distress, Calm Eyes: No: Sclera Icterus HENT: Yes: Atraumatic Neck: Yes: Supple Cardiovascular: Yes: Regular Rate and Rhythm Respiratory: Yes: Regular Gastrointestinal: Yes: Normal Bowel Sounds, Soft. No: Ascites, Distention, Tenderness Neurological: Yes: Alert, Oriented. No: Asterixis, Lethargy Labs: CBC, BMP 01/31/18 07:30 01/31/18 07:30 INR, PTT INR 1.34 (0.82-1.09) H 01/29/18 05:30 Laboratory Last Values WBC 3.6 K/mm3 (4.0-10.0) L 01/31/18 07:30 RBC 4.08 M/mm3 (4.00-5.60) 01/31/18 07:30 Hgb 13.0 GM/dL (11.7-16.9) 01/31/18 07:30 Hct 37.7 % (35.4-49) 01/31/18 07:30 MCV 92.5 fl (80-96) 01/31/18 07:30 MCH 32.0 pg (25.7-33.7) 01/31/18 07:30 MCHC 34.6 g/dl (32.0-35.9) 01/31/18 07:30 RDW 13.0 % (11.9-15.9) 01/31/18 07:30 Plt Count 100 K/MM3 (134-434) L 01/31/18 07:30 MPV 9.4 fl (7.5-11.1) 01/31/18 07:30 Absolute Neuts (auto) 2.1 # 01/31/18 07:30 Neutrophils % 57.3 % (42.8-82.8) 01/31/18 07:30 Lymphocytes % 22.5 % (8-40) D 01/31/18 07:30 Monocytes % 15.5 % (3.8-10.2) H 01/31/18 07:30 Eosinophils % 3.9 % (0-4.5) D 01/31/18 07:30 Basophils % 0.8 % (0-2.0) 01/31/18 07:30 Nucleated RBC % 0 % (0-0) 01/31/18 07:30 Platelet Comment No clumping noted 01/29/18 05:30 PT with INR 15.10 SEC (9.7-13.0) H 01/29/18 05:30 INR 1.34 (0.82-1.09) H 01/29/18 05:30 Sodium 141 mmol/L (136-145) 01/31/18 07:30 Potassium 3.4 mmol/L (3.5-5.1) L 01/31/18 07:30 Chloride 107 mmol/L (98-107) 01/31/18 07:30 Carbon Dioxide 25 mmol/L (21-32) 01/31/18 07:30 Anion Gap 9 (8-16) 01/31/18 07:30 BUN 17 mg/dL (7-18) 01/31/18 07:30 Creatinine 1.0 mg/dL (0.7-1.3) D 01/31/18 07:30 Creat Clearance w eGFR > 60 (>60) 01/31/18 07:30 POC Glucometer 103.30135 UNITS (80-120) 01/30/18 05:57 Random Glucose 80 mg/dL (74-106) 01/31/18 07:30 Calcium 7.8 mg/dL (8.5-10.1) L 01/31/18 07:30 Phosphorus 2.6 mg/dL (2.5-4.9) 01/31/18 07:30 Magnesium 2.0 mg/dL (1.8-2.4) 01/31/18 07:30 Total Bilirubin 1.8 mg/dL (0.2-1.0) H D 01/31/18 07:30 Direct Bilirubin 0.7 mg/dL (0.0-0.2) H 01/30/18 06:00 AST 33 U/L (15-37) 01/31/18 07:30 ALT 23 U/L (12-78) 01/31/18 07:30 Alkaline Phosphatase 100 U/L (45-117) 01/31/18 07:30 Ammonia 80.4 umol/L (11-32) H 01/30/18 06:00 Total Protein 6.6 g/dl (6.4-8.2) 01/31/18 07:30 Albumin 2.6 g/dl (3.4-5.0) L 01/31/18 07:30 Tumor Marker AFP 95.2 ng/ml (0.0-8.3) H 01/29/18 13:02 Urine Color Yellow 01/28/18 01:55 Urine Appearance Clear 01/28/18 01:55 Urine pH 6.0 (5.0-8.0) 01/28/18 01:55 Ur Specific [place] 1.016 (1.001-1.035) 01/28/18 01:55 Urine Protein Negative (NEGATIVE) 01/28/18 01:55 Urine Glucose (UA) Negative (NEGATIVE) 01/28/18 01:55 Urine Ketones Negative (NEGATIVE) 01/28/18 01:55 Urine Blood 1+ (NEGATIVE) H 01/28/18 01:55 Urine Nitrite Negative (NEGATIVE) 01/28/18 01:55 Urine Bilirubin Negative (<2.0 mg/dL) 01/28/18 01:55 Urine Urobilinogen 2.0 mg/dL (0.2-1.0) 01/28/18 01:55 Ur Leukocyte Esterase Negative (NEGATIVE) 01/28/18 01:55 Urine WBC (Auto) 1 /hpf (3-5) 01/28/18 01:55 Urine RBC (Auto) 4 /hpf (0-3) 01/28/18 01:55 Ur Epithelial Cells Rare /HPF (FEW) 01/28/18 01:55 Hyaline Casts 14 /lpf 01/28/18 01:55 Urine Mucus Few 01/28/18 01:55 Opiates Screen Negative ng/ml (BNKQVB=620) 01/28/18 01:55 Methadone Screen Negative ng/ml (LNZZPH=904) 01/28/18 01:55 Barbiturate Screen Negative ng/ml (WXBMCH=457) 01/28/18 01:55 Phencyclidine Screen Negative ng/ml (CUTOFF=25) 01/28/18 01:55 Ur Amphetamines Screen Negative ng/ml (QZYYTV=617) 01/28/18 01:55 MDMA (Ecstasy) Screen Negative ng/ml (BYLNGE=173) 01/28/18 01:55 Benzodiazepines Screen Positive ng/ml (WWCYAO=455) 01/28/18 01:55 Cocaine Screen Negative ng/ml (TAXPQG=302) 01/28/18 01:55 U Marijuana (THC) Screen Negative ng/ml (CUTOFF=50) 01/28/18 01:55 Alcohol, Quantitative < 5.0 mg/dL (0.0-5.0) 01/28/18 01:13 Problem List - Problems (1) HCC (hepatocellular carcinoma) Code(s): C22.0 - LIVER CELL CARCINOMA (2) Hepatic encephalopathy Code(s): K72.90 - HEPATIC FAILURE, UNSPECIFIED WITHOUT COMA (3) Hepatitis B Code(s): B19.10 - UNSPECIFIED VIRAL HEPATITIS B WITHOUT HEPATIC COMA (4) Hepatitis C Code(s): B19.20 - UNSPECIFIED VIRAL HEPATITIS C WITHOUT HEPATIC COMA (5) Alcohol abuse Code(s): F10.10 - ALCOHOL ABUSE, UNCOMPLICATED Assessment/Plan Cont. lactulose, Rifaximine, lasix, spirolactone, low salt diet. [facility].
[2018-01-31] MEDS ORDERED: POTASSIUM CHLORIDE TABS 20 MEQ TABLET.ER (FP) PO ONE (11:24)
[2018-01-31 12:19] VITALS: BMI 27.2
--- NOTE | 2018-01-31 12:40 | PN ---
Teaching Attending Note Name of Resident: Ben Joya ATTENDING PHYSICIAN STATEMENT I saw and evaluated the patient. I reviewed the resident's note and discussed the case with the resident. I agree with the resident's findings and plan as documented. SUBJECTIVE:asymptomatic. denies Cp, SOB, fver, chills, confusion, N/V/C/D. had 1 BM so far today and total of 5 yesterday OBJECTIVE: Last Vital Signs Temp Pulse Resp BP Pulse Ox 98.4 F 72 20 110/69 97 01/31/18 06:00 01/31/18 06:00 01/31/18 06:00 01/31/18 06:00 01/30/18 21:00 General NAD. A&O x3 CV S1 S2 RRR no murmur/rub/gallop Lungs CTA B/L no wheezing/rales/rhonchi Abdomen soft NT/ND Extremities no pedal edema, no asterixis ASSESSMENT AND PLAN: 67 yo M with PMHx of HTN, CVA, traumatic subdural hematoma, polysubstance abuse (ETOH/cocaine), right hip replacement, CHF, Hep B and C, syphilis, cirrhosis, chronic liver disease, hepatic encephalopathy and GERD, admitted with AMS in 12/2016 felt to be combination of seizure/hepatic encephalopathy, readmitted with AMS 1. Acute hepatic encephalopathy- unclear if he is compliant as he is inconsistent if he takes his medications. is currently oriented. has appointment today with blanking machine operator. will cont current meds for now and to f/u with GI for further management. stressed importance of medication compliance. on transplant list 2. Seizure- similar presentation last year and was started on keppra at that time due to bladder/bowel incontinence. will cont keppra. to follow up with neuro as outpatient to titrate off. seizure precautions 3. HCC- is on nexavar. has scheduled MRI on 02/05. 4. 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 as above 5. HTN- improved. cont home medications 6. hypokalemia- KCl po. side effect of nexavar. instructed pt to f/u with PMD for lab check. may need to be placed on chronic supplements 7. Remote polysubstance abuse- as per sister last use was a year ago 8. CHF- no signs of volume overload. advance diet. 9. DVT ppx- hep sq 10. PT eval. can d/c home. has appt today with blanking machine operator.
[2018-01-31 14:08] VITALS: BP 108/64; PULSE 85; TEMP 97.9
--- NOTE | 2018-01-31 14:42 | DS ---
Physical Exam: SUBJECTIVE: Patient seen and examined at bedside. Conversant today. AAOx3. OBJECTIVE: Vital Signs Period Temp Pulse Resp BP Sys/Cherry Pulse Ox Last 24 Hr 97.4 F-98.4 F 72-85 18-20 108-151/64-105 97-97 PHYSICAL EXAM Gen: NAD, alert, oriented HEENT: NCAT, pupils equal and responsive Neck: supple, no jvd Cardio: RRR, s1s2, no murmurs Pulm: cta Abd: soft, no organomegally Ext: no tremors, 2+ pulses, no edema LABS Laboratory Results - last 24 hr 01/31/18 01/31/18 07:30 07:30 WBC 3.6 L RBC 4.08 Hgb 13.0 Hct 37.7 MCV 92.5 MCH 32.0 MCHC 34.6 RDW 13.0 Plt Count 100 L MPV 9.4 Absolute Neuts (auto) 2.1 Neutrophils % 57.3 Lymphocytes % 22.5 D Monocytes % 15.5 H Eosinophils % 3.9 D Basophils % 0.8 Nucleated RBC % 0 Sodium 141 Potassium 3.4 L Chloride 107 Carbon Dioxide 25 Anion Gap 9 BUN 17 Creatinine 1.0 D Creat Clearance w eGFR > 60 Random Glucose 80 Calcium 7.8 L Phosphorus 2.6 Magnesium 2.0 Total Bilirubin 1.8 H D AST 33 ALT 23 Alkaline Phosphatase 100 Total Protein 6.6 Albumin 2.6 L HOSPITAL COURSE: Date of Admission:01/28/18 Date of Discharge: 01/31/18 Pt is a 67 y/o M with PMH Hep B, Hep C, cirrhosis, and hepatic encephalopathy who presented to ED BIBA for AMS after being found unresponsive. Pt was admitted for hepatic encephalopathy. The patient's hepatic encephalopathy resolved with lactulose and rifaximin. Pt stated that his encephalopathic state was the direct result of mediaction noncompliance, particularly with rifaximin. His bilirubin was elevated on initial labs, but dropped over his stay. Initially, pt was noncommunicative. He gradually became more alert, and at the time of discharge was aaox3 and conversant. Pt's outpt entertainment musician Jaycee Masterson was called. Pt has MRI scheduled for the , so Dr. Swanson requested that no MRI be done here at this time. Pt HTN was treated with home Norvasc. ? Seizure disorder. Pt may have had a seizure in the past during last visit. Seen by neurology and put on Keppra. Pt will be d/c'ed on Keppra with instructions to follow up with Neurologist as out pt to taper if not needed. Pt currently in NAD and stable for discharge home with instructions to follow up immediately with entertainment musician. Minutes to complete discharge: 30 Discharge Summary Reason For Visit: ENCEPHALOPATHY Condition: Critical - Instructions Diet, Activity, Other Instructions: You were in the hospital because of hepatic encephalopathy. It is extremely important that you take your medications as directed. Do not skip doses. You need to follow up right away with your Critical Power Technician, Dr. Abdi Swanson at [facility]. You need to have an MRI done there. Make sure you follow up with your Neurologist, Dr. Hanna. You are being discharged with a new medication. Take Keppra 1gm twice daily until you see your neurologist. He can adjust your dosage. Follow up with your primary care doctor in 1 week. You need to have your potassium level monitored as it was low here which is a side effect of your medication. Consider starting daily supplements IF your symptoms worsen return to the ER Referrals: Nj Hanna MD [Staff Physician] - 1 Week Disposition: HOME - Home Medications Comprehensive Discharge Medication List: Ambulatory Orders Furosemide [Lasix] 20 mg PO DAILY 01/28/18 Lactobacillus Acidophilus [Acidophilus] 1 each PO DAILY 01/28/18 Lactulose 30 gm PO Q4H 01/28/18 Magnesium Oxide 400 mg PO DAILY 01/28/18 Omeprazole 20 mg PO DAILY 01/28/18 Polyethylene Glycol 3350 [Miralax 119 gm Btl -] 17 gm PO DAILY 01/28/18 Sorafenib Tosylate [Nexavar] 400 mg PO BID 01/28/18 Spironolactone 50 mg PO DAILY 01/28/18 Trazodone HCl 50 mg PO HS 01/28/18 Rifaximin [Xifaxan -] 550 mg PO BID tablet 01/31/18 levETIRAcetam [Keppra -] 1,000 mg PO BID #28 tablet 01/31/18 This patient is new to me today: No Emergency Visit: No Critical Care patient: No - Discharge Referral Referred to [facility] Med P.C.: No
== END 2018-01-31 13:41 | disposition home or self-care (01) | DRG 442 ==
LOC: JER 23:48 → JERBED 01-28 02:23 → JICU 01-28 03:53 → J5S 01-30 17:05
PROVIDERS: ADMIT Internal Medicine; ATTEND Internal Medicine
DX: K72.00 Acute and subacute hepatic failure without coma (principal); C22.0 Liver cell carcinoma; B18.1 Chronic viral hepatitis B without delta-agent; B18.2 Chronic viral hepatitis C; F10.10 Alcohol abuse, uncomplicated; K21.9 Gastro-esophageal reflux disease without esophagitis; I11.0 Hypertensive heart disease with heart failure; G40.909 Epilepsy, unspecified, not intractable, without status epilepticus; R00.0 Tachycardia, unspecified; F17.210 Nicotine dependence, cigarettes, uncomplicated; G47.33 Obstructive sleep apnea (adult) (pediatric); D69.6 Thrombocytopenia, unspecified; F14.10 Cocaine abuse, uncomplicated; F19.10 Other psychoactive substance abuse, uncomplicated; E78.00 Pure hypercholesterolemia, unspecified; E87.6 Hypokalemia; Z86.718 Personal history of other venous thrombosis and embolism; Z86.711 Personal history of pulmonary embolism; Z96.641 Presence of right artificial hip joint; Z86.73 Personal history of transient ischemic attack (TIA), and cerebral infarction without residual deficits; Z91.14 Patient's other noncompliance with medication regimen
CPT/HCPCS: 36415; 70450-TC; 71045-TC-FY; 76700-TC; 80053; 80076; 80307; 81003; 81015; 82105; 82140; 82962; 83735; 84100; 85025; 85027; 85610; 93005; 93010; 97116-GP; 97161-GP; 99281-25; J1644; J7030

== ENCOUNTER 2018-05-22 00:02 | Inpatient (IN) | payer OTHER ==
--- NOTE | 2018-05-22 00:22 | PDOC ---
History of Present Illness <Lucila Rojas - Last Filed: 05/22/18 04:45> - General History Source: Patient, Family Exam Limitations: Clinical Condition - History of Present Illness Initial Comments: 05/22/18 00:38 HPI and ROS performed with patient and his sister. 67 year old male with PMH past ETOH abuse, cirrhosis, hepatic encephalopathy, hepatitis C, hepatitis B, HTN, seizures BIBA from home for AMS. Sister states that she calls the patient every morning, and at 0700 today she thought the pt was slurring his words, she called again at night time and he did not answer, so she sent a neighbor to check on him, he stated he felt fine but appeared altered and was slurring his words. He denies fever, chills, nausea, vomiting, diarrhea, abdominal pain, chest pain, shortness of breath, weakness, numbness, tingling, headache. Recent hospital course: Admitted - 01/28 for AMS after non-adherence to hepatic encephalopathy meds Discharged - 01/31 <Lauren Azar - Last Filed: 05/22/18 18:50> - General Chief Complaint: Altered Mental Status Stated Complaint: Altered Mental Status Time Seen by Provider: 05/22/18 00:22 Past History <Lucila Rojas - Last Filed: 05/22/18 04:45> - Past Medical History Cardiac Disorders: Yes CVA: (H/O traumatic subdural hematoma) CHF: Yes GI Disorders: (gerd) HTN: Yes Hypercholesterolemia: Yes Liver Disease: Yes (Cirrhosis, hepatic encephalopathy, hepatitis B, hepatitis C) - Surgical History Neurologic Surgery: Yes (Laminectomy) Orthopedic Surgery: Yes (Total R. Hip replacement) - Immunization History Immunization Up to Date: Yes - Suicide/Smoking/Psychosocial Hx Smoking Status: No Smoking History: Smoker current status UNK Have you smoked in the past 12 months: No Number of Cigarettes Smoked Daily: 0 Hx Alcohol Use: Yes Drug/Substance Use Hx: No Substance Use Type: Alcohol, Cocaine Hx Substance Use Treatment: No <Lauren Azar - Last Filed: 05/22/18 18:50> - Past Medical History Allergies/Adverse Reactions: Allergies Allergy/AdvReac Type Severity Reaction Status Date / Time No Known Allergies Allergy Verified 05/22/18 00:29 Home Medications: Ambulatory Orders Furosemide [Lasix] 20 mg PO DAILY 01/28/18 Lactobacillus Acidophilus [Acidophilus] 1 each PO DAILY 01/28/18 Lactulose 30 gm PO Q4H 01/28/18 Magnesium Oxide 400 mg PO DAILY 01/28/18 Omeprazole 20 mg PO DAILY 01/28/18 Polyethylene Glycol 3350 [Miralax 119 gm Btl -] 17 gm PO DAILY 01/28/18 Sorafenib Tosylate [Nexavar] 400 mg PO BID 01/28/18 Spironolactone 50 mg PO DAILY 01/28/18 traZODone HCL [Trazodone HCl] 50 mg PO HS 01/28/18 Rifaximin [Xifaxan -] 550 mg PO BID tablet 01/31/18 levETIRAcetam [Keppra -] 1,000 mg PO BID #28 tablet 01/31/18 Review of Systems - Review of Systems Able to Perform ROS?: Yes Comments:: 05/22/18 00:41 General: denies fever, chills, night sweats, generalized weakness. HEENT: denies sore throat, rhinorrhea, ear pain. Heart: denies chest pain, palpitations, syncope, lower extremity swelling, diaphoresis. Respiratory: denies shortness of breath, cough, sputum production, hemoptysis. Abdomen: denies abdominal pain, nausea, vomiting, diarrhea, constipation, blood in stool. : denies dysuria, increased urinary frequency, hematuria, urinary incontinence , flank pain. Back: denies back pain. Musculoskeletal: denies joint pain, muscle pain, joint swelling. Neurological: admits to altered mental status, slurred speech. denies headache, dizziness, numbness, tingling, weakness. Skin: denies rash, laceration, abrasion. <Lauren Azar - Last Filed: 05/22/18 18:50> *Physical Exam - Vital Signs Last Vital Signs Temp Pulse Resp BP Pulse Ox 97.7 F 98 H 17 164/98 99 05/22/18 00:25 05/22/18 00:25 05/22/18 00:25 05/22/18 00:25 05/22/18 00:25 <Lucila Rojas - Last Filed: 05/22/18 04:45> - Physical Exam Comments: 05/22/18 00:42 Constitutional: Well-nourished, Well-developed, appearing stated age. HEENT: head is normocephalic, atraumatic. EOMI. PERRLA. Neck: supple. Full ROM. Heart: regular rhythm. no murmurs, rubs or gallops. Chest: bilateral gynecomastia. Lungs: clear to auscultation bilaterally. no crackles, rhonchi or wheezing. no stridor. Abdomen: soft, nontender. normal bowel sounds. no rebound, guarding. no splenomegaly. no hepatomegaly. Extremities: Peripheral pulses intact and equal. No lower extremity edema. Neurological: CN 2-12 grossly intact. Moves all four extremities. no asterixis. Psych: awake, somnolent but easily arousable to voice, oriented to person, not oriented to place or time. Follows commands. Answers questions appropriately, but confused. <Lauren Azar - Last Filed: 05/22/18 18:50> ED Treatment Course - LABORATORY CBC & Chemistry Diagram: 05/22/18 01:12 05/22/18 01:12 - ADDITIONAL ORDERS Additional order review: Laboratory Results 05/22/18 05/22/18 05/22/18 01:20 01:12 01:12 PT with INR INR PTT (Actin FS) 25.8 Sodium 138 Potassium 4.6 Chloride 108 H Carbon Dioxide 21 Anion Gap 9 BUN 9 Creatinine 0.8 Creat Clearance w eGFR > 60 Random Glucose 79 Calcium 9.0 Total Bilirubin 2.3 H AST 43 H ALT 26 Alkaline Phosphatase 90 Ammonia 177.00 H Creatine Kinase 172 Creatine Kinase Index 0.7 CK-MB (CK-2) 1.3 Troponin I < 0.02 Total Protein 8.0 Albumin 3.3 L 05/22/18 01:12 PT with INR 14.10 H INR 1.19 H PTT (Actin FS) Sodium Potassium Chloride Carbon Dioxide Anion Gap BUN Creatinine Creat Clearance w eGFR Random Glucose Calcium Total Bilirubin AST ALT Alkaline Phosphatase Ammonia Creatine Kinase Creatine Kinase Index CK-MB (CK-2) Troponin I Total Protein Albumin 05/22/18 01:12 RBC 5.01 MCV 92.1 MCHC 33.2 RDW 14.6 D MPV 9.4 Neutrophils % 65.0 Lymphocytes % 20.0 Monocytes % 13.0 H Eosinophils % 1.2 Basophils % 0.8 - Medications Given in the ED: ED Medications Discontinued Medications Generic Name Dose Route Start Last Admin Trade Name Ty PRN Reason Stop Dose Admin Sodium Chloride 1,000 mls @ 1,000 mls/hr 05/22/18 00:45 05/22/18 01:29 Normal Saline - IV 05/22/18 01:44 1,000 mls/hr .Q1H ONE Administration Lactulose 200 gm 05/22/18 02:00 05/22/18 03:43 Cephulac (Rectal Use) AK 05/22/18 02:01 200 gm ONCE ONE Administration <Lucila Rojas - Last Filed: 05/22/18 04:45> - LABORATORY CBC & Chemistry Diagram: 05/22/18 01:12 05/22/18 05:59 <Lauren Azar - Last Filed: 05/22/18 18:50> Medical Decision Making - Medical Decision Making 05/22/18 00:43 67 year old male with PMH past ETOH abuse, cirrhosis, hepatic encephalopathy, hepatitis C, hepatitis B, HTN, seizures BIBA from home for AMS. Initial Vital Signs Temp Pulse Resp BP Pulse Ox 97.7 F 98 H 17 164/98 99 05/22/18 00:25 05/22/18 00:25 05/22/18 00:25 05/22/18 00:25 05/22/18 00:25 Afebrile. No tachycardia. Mild hypertension. No hypoxia on room air. EKG performed at 0147 - rate 82, regular rhythm, normal axis, normal intervals, no acute ST changes. Concern for hepatic encephalopathy, hx of prior. - Pending CMP, CBC, ammonia, coags Concern for CVA - Pending CT head - EKG to R/O arrhythmia Concern for SBP low, no fever, no abdominal pain, no abdominal tenderness to palpation. - No paracentesis indicated at this time. 05/22/18 01:46 CBC WBC 4.3 K/mm3 (4.0-10.0) 05/22/18 01:12 RBC 5.01 M/mm3 (4.00-5.60) 05/22/18 01:12 Hgb 15.3 GM/dL (11.7-16.9) 05/22/18 01:12 Hct 46.1 % (35.4-49) D 05/22/18 01:12 MCV 92.1 fl (80-96) 05/22/18 01:12 MCH 30.5 pg (25.7-33.7) 05/22/18 01:12 MCHC 33.2 g/dl (32.0-35.9) 05/22/18 01:12 RDW 14.6 % (11.9-15.9) D 05/22/18 01:12 Plt Count 123 K/MM3 (134-434) L D 05/22/18 01:12 MPV 9.4 fl (7.5-11.1) 05/22/18 01:12 Absolute Neuts (auto) 2.8 K/mm3 (1.5-8.0) 05/22/18 01:12 Neutrophils % 65.0 % (42.8-82.8) 05/22/18 01:12 Lymphocytes % 20.0 % (8-40) 05/22/18 01:12 Monocytes % 13.0 % (3.8-10.2) H 05/22/18 01:12 Eosinophils % 1.2 % (0-4.5) 05/22/18 01:12 Basophils % 0.8 % (0-2.0) 05/22/18 01:12 Nucleated RBC % 0 % (0-0) 05/22/18 01:12 No leukocytosis - Low concern for SBP No anemia CXR - sharp costophrenic angles. no infiltrate. no cardiomegaly. no pulmonary alveolar edema. 05/22/18 01:56 CMP Sodium 138 mmol/L (136-145) 05/22/18 01:12 Potassium 4.6 mmol/L (3.5-5.1) 05/22/18 01:12 Chloride 108 mmol/L (98-107) H 05/22/18 01:12 Carbon Dioxide 21 mmol/L (21-32) 05/22/18 01:12 Anion Gap 9 MMOL/L (8-16) 05/22/18 01:12 BUN 9 mg/dL (7-18) 05/22/18 01:12 Creatinine 0.8 mg/dL (0.55-1.3) 05/22/18 01:12 Creat Clearance w eGFR > 60 (>60) 05/22/18 01:12 Random Glucose 79 mg/dL (74-106) 05/22/18 01:12 Calcium 9.0 mg/dL (8.5-10.1) 05/22/18 01:12 Total Bilirubin 2.3 mg/dL (0.2-1) H 05/22/18 01:12 AST 43 U/L (15-37) H 05/22/18 01:12 ALT 26 U/L (13-61) 05/22/18 01:12 Alkaline Phosphatase 90 U/L (45-117) 05/22/18 01:12 Ammonia 177.00 umol/L (11-32) H 05/22/18 01:20 Creatine Kinase 172 IU/L (26-308) 05/22/18 01:12 Creatine Kinase Index 0.7 % (0.0-5.0) 05/22/18 01:12 CK-MB (CK-2) 1.3 ng/mL (0.5-3.6) 05/22/18 01:12 Troponin I < 0.02 ng/ml (0.00-0.05) 05/22/18 01:12 Total Protein 8.0 g/dl (6.4-8.2) 05/22/18 01:12 Albumin 3.3 g/dl (3.4-5.0) L 05/22/18 01:12 Hyperammonemia - Rectal lactulose ordered Elevated total bili. Hx cirrhosis. Elevated AST. Hx cirrhosis. Cardiac enzymes negative. CT head - negative for intracranial pathology. Pt will be admitted for hepatic encephalopathy. 05/22/18 05:[address] Joya, who will admit the patient for hepatic encephalopathy under Dr. Jiménez's service. <Lauren Azar - Last Filed: 05/22/18 18:50> *DC/Admit/Observation/Transfer - Discharge Dispostion Decision to Admit order: Yes <Lucila Rojas - Last Filed: 05/22/18 04:45> - Discharge Dispostion Decision to Admit order: Yes <Lauren Azar - Last Filed: 05/22/18 18:50> Diagnosis at time of Disposition: Hepatic encephalopathy - Discharge Dispostion Condition at time of disposition: Good
[2018-05-22 00:29] VITALS: BMI 25.8
[2018-05-22] MEDS ORDERED: SODIUM CHLORIDE 1,000 ML IV ONE (00:45)
--- NOTE | 2018-05-22 00:54 | PDOC ---
Attending Attestation - Resident Resident Name: Lauren Azar - ED Attending Attestation I have performed the following: I have examined & evaluated the patient, The case was reviewed & discussed with the resident, I agree w/resident's findings & plan, Exceptions are as noted - HPI HPI: 67 yo M history alcohllic cirrhosis, hepatic encephalopathy, HCV, HBC, HTN, seizures presents with AMS. As per sister, he was slurring his words yesterday morning, then she noted the same slurring in the evening, called 911. Patient unable to offer any history. He awakens to voice but his answers to questions are unintelligible. Sister states he may not have been taking his meds. - Physicial Exam PE: GENERAL: Awake, alert, +slurred speech. Intermittently falls asleep and has flickering of eyelids. HEAD: No signs of trauma EYES: PERRLA, EOMI, sclera anicteric, conjunctiva clear ENT: Auricles normal inspection, hearing grossly normal, nares patent, oropharynx clear without exudates. Dry mucosa NECK: Normal ROM, supple, no lymphadenopathy, JVD, or masses LUNGS: Breath sounds equal, clear to auscultation bilaterally. No wheezes, and no crackles HEART: Regular rate and rhythm, normal S1 and S2, no murmurs, rubs or gallops ABDOMEN: Soft, nontender, normoactive bowel sounds. No guarding, no rebound. No masses EXTREMITIES: Normal range of motion, no edema. No clubbing or cyanosis. No cords, erythema, or tenderness NEUROLOGICAL: Cranial nerves II through XII grossly intact. Motor and sensation intact. SKIN: Warm, Dry, normal turgor, no rashes or lesions noted. - Medical Decision Making Pt with history of cirrhosis, presenting with AMS. Suspect hepatic encephalopathy. Will send AMS labs, obtain CXR and CTH. Admit.
[2018-05-22 01:26] LABS: BASO % 0.8 % (0-2.0); EOS % 1.2 % (0-4.5); HEMATOCRIT 46.1 % (35.4-49); HEMOGLOBIN 15.3 GM/dL (11.7-16.9); MCH 30.5 pg (25.7-33.7); MCHC 33.2 g/dl (32.0-35.9); MEAN CELL VOLUME 92.1 fl (80-96); MEAN PLT VOLUME 9.4 fl (7.5-11.1); PLATELET COUNT 123 K/MM3 (134-434); RBC 5.01 M/mm3 (4.00-5.60); RDW 14.6 % (11.9-15.9); WHITE BLOOD COUNT 4.3 K/mm3 (4.0-10.0)
[2018-05-22 01:39] LABS: INR 1.19 (0.83-1.09); PROTHROMBIN TIME (PATIENT) 14.1 SEC (9.7-13.0)
[2018-05-22] MEDS ORDERED: LACTULOSE 20 GM/30 ML UDC (FOR RECTAL USE ONLY) PR ONE ×2 (02:00→07:10)
[2018-05-22 02:16] LABS: ALBUMIN 3.3 g/dl (3.4-5.0)
--- NOTE | 2018-05-22 05:21 | PN ---
Teaching Attending Note Name of Resident: Ben Acevedo ATTENDING PHYSICIAN STATEMENT I saw and evaluated the patient. I reviewed the resident's note and discussed the case with the resident. I agree with the resident's findings and plan as documented. SUBJECTIVE: Patient is a 67 year old man with PMH past ETOH abuse, cirrhosis, hepatic encephalopathy, hepatitis C, hepatitis B, HTN, and seizures BIBA from home for AMS. Sister states that she calls the patient every morning, and at 0700 today she thought the patient was slurring his words, she called again at night time and he did not answer, so she sent a neighbor to check on him, he stated he felt fine but appeared altered and was slurring his words. He denies fever, chills, nausea, vomiting, diarrhea, abdominal pain, chest pain, shortness of breath or headache. OBJECTIVE: Somnolent but readily arousable Vital Signs Period Temp Pulse Resp BP Sys/Cherry Pulse Ox Last 24 Hr 97.7 F 98 17 164/98 99 HEENT: ++Jaundice, eye redness or discharge, PERRLA, EOMI. Normocephalic, atraumatic. External ears are normal and hearing is grossly intact. No nasal discharge. Neck: Supple, nontender. No palpable adenopathy or thyromegaly. No JVD Chest: Good effort. Clear to auscultation and percussion. Heart: Regular. No S3, rub or murmur Abdomen: Not distended, soft, nontender and no HSM. No rebound or guarding. Normoactive bowel sounds. Ext: Peripheral pulses intact. No leg edema. Skin: Warm and dry. No petechiae, rash or ecchymosis. Neuro: Somnolent but readily arousable. Sluggish. Oriented to person and place. No tremors or asterexis. CN 2-12 grossly intact. Sensation grossly intact in all four extremities and DTR are symmetric. Home Medications Medication Instructions Recorded Furosemide [Lasix] 20 mg PO DAILY 01/28/18 Lactobacillus Acidophilus 1 each PO DAILY 01/28/18 [Acidophilus] Lactulose 30 gm PO Q4H 01/28/18 Magnesium Oxide 400 mg PO DAILY 01/28/18 Omeprazole 20 mg PO DAILY 01/28/18 Polyethylene Glycol 3350 [Miralax 17 gm PO DAILY 06/10/18 119 gm Btl -] Sorafenib Tosylate [Nexavar] 400 mg PO BID 01/28/18 Spironolactone 50 mg PO DAILY 01/28/18 traZODone HCL [Trazodone HCl] 50 mg PO HS 01/28/18 Rifaximin [Xifaxan -] 550 mg PO BID tablet 01/31/18 levETIRAcetam [Keppra -] 1,000 mg PO BID #28 tablet 01/31/18 Abnormal Lab Results 05/22/18 05/22/18 05/22/18 01:12 01:12 01:12 Plt Count 123 L D Monocytes % 13.0 H PT with INR 14.10 H INR 1.19 H Chloride 108 H Total Bilirubin 2.3 H AST 43 H Ammonia Albumin 3.3 L 05/22/18 01:20 Plt Count Monocytes % PT with INR INR Chloride Total Bilirubin AST Ammonia 177.00 H Albumin ASSESSMENT AND PLAN: 1. Hepatic encephalopathy - Head CT scan is negative. No obvious precipitating factor. Will check UA for infection, Mg, Phosphate and ensure adequate caloric intake, euglycemia and normal serum K. Will treat with lactulose 45 ml po qid and rifaximin 550 mg po bid. 2. DVT prophylaxis - Lovenox 40 mg SQ q 24 hours. 3. Advance directives - Full code
--- NOTE | 2018-05-22 06:36 | HP ---
CHIEF COMPLAINT: AMS PCP: Dr Moralez- [facility] HISTORY OF PRESENT ILLNESS: History obtained from pt's sister at bedside as pt lethargic at time of encounter. Pt is a 67 y/o gentleman with a significant past medical history of alcohol abuse, Hepatitic C, hepatic encephalopathy, and HTN who presented to [facility] early this morning due to altered mental status and slurred speech. Pt lives alone at home and is called every morning around 7 am by his sister who checks in on pt and makes sure he is compliant with his medications. Sister endorses that she called her brother around 7 am yesterday morning. Pt answered the phone and he was noted to have slurred speech and incoherent language. Sister again called her brother later that night and pt did not answer the phone call. Sister subsequently called the pt's landlord and had landlord enter the pt's apartment. Pt at that time was lethargic and exhibited slurred speech. 911 was called and pt was sent to our ED. Pt endorses that he is noncompliant with his medications and that this has happened before in the past. Sister states that pt has been hospitalized twice in the past for the same reason. Pt' s sister denies pt having c/o shortness of breath, nausea, vomiting, or chest pain. ER course was notable for: (1) Ammonia level 177 (2) CT Head - (3) Lactulose 200 gm given in ED Recent Travel: denies PAST MEDICAL HISTORY: Per HPI PAST SURGICAL HISTORY: Social History: Smoking: Alcohol: Drugs: Family History: Mother ESRD, Father DM Allergies No Known Allergies Allergy (Verified 05/22/18 00:29) HOME MEDICATIONS: Home Medications Medication Instructions Recorded Furosemide [Lasix] 20 mg PO DAILY 01/28/18 Lactobacillus Acidophilus 1 each PO DAILY 01/28/18 [Acidophilus] Lactulose 30 gm PO Q4H 01/28/18 Magnesium Oxide 400 mg PO DAILY 01/28/18 Omeprazole 20 mg PO DAILY 01/28/18 Polyethylene Glycol 3350 [Miralax 17 gm PO DAILY 01/28/18 119 gm Btl -] Sorafenib Tosylate [Nexavar] 400 mg PO BID 01/28/18 Spironolactone 50 mg PO DAILY 01/28/18 traZODone HCL [Trazodone HCl] 50 mg PO HS 01/28/18 Rifaximin [Xifaxan -] 550 mg PO BID tablet 01/31/18 levETIRAcetam [Keppra -] 1,000 mg PO BID #28 tablet 01/31/18 REVIEW OF SYSTEMS Unable to obtain PHYSICAL EXAMINATION Vital Signs - 24 hr 05/22/18 00:25 Temperature 97.7 F Pulse Rate 98 H Respiratory 17 Rate Blood Pressure 164/98 O2 Sat by Pulse 99 Oximetry (%) GENERAL: Lethargic, shivering HEAD: NC/AT EYES: PERRLA, Icteric Conjunctivae LUNGS: CTA B/L, N owheezing, rhonchi, or rales HEART: RRR, No MRG S1 S2. ABDOMEN: No [place]ut [place], No asterixis, no HSM, Bruise mid-abdomen EXTREM: No CCE Laboratory Results - last 24 hr 05/22/18 05/22/18 05/22/18 01:12 01:12 01:12 WBC 4.3 RBC 5.01 Hgb 15.3 Hct 46.1 D MCV 92.1 MCH 30.5 MCHC 33.2 RDW 14.6 D Plt Count 123 L D MPV 9.4 Absolute Neuts (auto) 2.8 Neutrophils % 65.0 Lymphocytes % 20.0 Monocytes % 13.0 H Eosinophils % 1.2 Basophils % 0.8 Nucleated RBC % 0 PT with INR 14.10 H INR 1.19 H PTT (Actin FS) Sodium 138 Potassium 4.6 Chloride 108 H Carbon Dioxide 21 Anion Gap 9 BUN 9 Creatinine 0.8 Creat Clearance w eGFR > 60 Random Glucose 79 Calcium 9.0 Total Bilirubin 2.3 H AST 43 H ALT 26 Alkaline Phosphatase 90 Ammonia Creatine Kinase 172 Creatine Kinase Index 0.7 CK-MB (CK-2) 1.3 Troponin I < 0.02 Total Protein 8.0 Albumin 3.3 L 05/22/18 05/22/18 01:12 01:20 WBC RBC Hgb Hct MCV MCH MCHC RDW Plt Count MPV Absolute Neuts (auto) Neutrophils % Lymphocytes % Monocytes % Eosinophils % Basophils % Nucleated RBC % PT with INR INR PTT (Actin FS) 25.8 Sodium Potassium Chloride Carbon Dioxide Anion Gap BUN Creatinine Creat Clearance w eGFR Random Glucose Calcium Total Bilirubin AST ALT Alkaline Phosphatase Ammonia 177.00 H Creatine Kinase Creatine Kinase Index CK-MB (CK-2) Troponin I Total Protein Albumin ASSESSMENT/PLAN: 67 y/o gentleman with a significant past medical history of alcohol abuse, Hepatitic C, hepatic encephalopathy, and HTN who presented to [facility] early this morning due to altered mental status and slurred speech. # Altered mental status 2/2 hepatic encephalopathy -Ammonia 177 on admission - Bili 2.3 -Head CT scan is negative -Urinalysis for infection -Mg and Phos level -Recieved Lactulose 200 gm IA in ED - Lactulose 45 ml po qid -Rifaximin 550 mg po bid. # Hepatocellular Carcinoma? -Pt's sister states pt currently receiving NexaVar anticancer medication ( Sorafenib) # Hepatitis C -Pt to begin Antiviral medication if noit already on -Day team to f/u on pt's current medication regimen FEN No Fluids Monitor Electrolytes NPO until mental status improves DVT ppx Lovenox 40 mg sq QD Dispo: Monitor on floor Visit type - Emergency Visit Emergency Visit: Yes ED Registration Date: 05/22/18 Care time: The patient presented to the Emergency Department on the above date and was hospitalized for further evaluation of their emergent condition. - New Patient This patient is new to me today: Yes Date on this admission: 05/22/18 - Critical Care Critical Care patient: No
[2018-05-22 07:12] LABS: ALBUMIN 3.3 g/dl (3.4-5.0); ALK PHOS 86 U/L (45-117); ANION GAP 9 MMOL/L (8-16); BILIRUBIN,TOTAL 2.5 mg/dL (0.2-1); BLOOD UREA NITROGEN 10 mg/dL (7-18); CHLORIDE 110 mmol/L (98-107); CO2 20 mmol/L (21-32); CREATININE 0.9 mg/dL (0.55-1.3); GLUCOSE,RANDOM 87 mg/dL (74-106); POTASSIUM 3.8 mmol/L (3.5-5.1); SGOT/AST 31 U/L (15-37); SGPT/ALT 24 U/L (13-61); SODIUM 140 mmol/L (136-145); TOT PROT 7.7 g/dl (6.4-8.2)
[2018-05-22 07:17] LABS: ARTERIAL BLOOD GAS PCO2 29.6 mmHg (35-45); ARTERIAL BLOOD GAS PO2 92.7 mmHg (80-100)
[2018-05-22 07:18] LABS: ALLENS TEST POSITIVE
[2018-05-22 08:20] LABS: INR 1.16 (0.83-1.09); PROTHROMBIN TIME (PATIENT) 13.7 SEC (9.7-13.0)
[2018-05-22 08:22] LABS: MAGNESIUM 2.4 mg/dL (1.8-2.4); PHOSPHOROUS 2.9 mg/dL (2.5-4.9)
[2018-05-22 08:23] LABS: ACTIVATED PTT 32.6 SECONDS (25.2-36.5)
[2018-05-22 08:49] LABS: ALK PHOS 91 U/L (45-117); ANION GAP 9 MMOL/L (8-16); BILIRUBIN,TOTAL 2.4 mg/dL (0.2-1); BLOOD UREA NITROGEN 9 mg/dL (7-18); CHLORIDE 109 mmol/L (98-107); CO2 21 mmol/L (21-32); CREATININE 0.9 mg/dL (0.55-1.3); GLUCOSE,RANDOM 79 mg/dL (74-106); POTASSIUM 4.6 mmol/L (3.5-5.1); SGOT/AST 43 U/L (15-37); SGPT/ALT 26 U/L (13-61); SODIUM 139 mmol/L (136-145)
--- NOTE | 2018-05-22 10:42 | EKG ---
Test Reason : Blood Pressure : / mmHG Vent. Rate : 082 BPM Atrial Rate : 082 BPM P-R Int : 152 ms QRS Dur : 080 ms QT Int : 394 ms P-R-T Axes : 040 086 064 degrees QTc Int : 460 ms NORMAL SINUS RHYTHM NORMAL ECG WHEN COMPARED WITH ECG OF 29-JAN-2018 13:31, NO SIGNIFICANT CHANGE WAS FOUND Confirmed by Edison Damon MD ([id number]) on 05/22/2018 10:42:12 AM Referred By: Confirmed By:Edison Damon MD
[2018-05-22] MEDS ORDERED: SPIRONOLACTONE 25 MG TABLET (FP) PO SCH (10:45)
[2018-05-22] MEDS: ENOXAPARIN NA (PORCINE) 40 MG/0.4 ML DISP.SYRIN SQ SCH (11:12)
[2018-05-22] MEDS: SPIRONOLACTONE 25 MG TABLET (FP) PO SCH (11:13)
[2018-05-22] MEDS: LACTULOSE 20 GM/30 ML UDC (FOR ORAL USE ONLY) PO SCH ×3 (11:16→22:38)
[2018-05-22] MEDS: levETIRAcetam 500 MG/5 ML INJECTION VIAL IVPB SCH ×2 (11:29→22:39)
[2018-05-22] MEDS ORDERED: PT OWN MED DRAWER 7, Y5N ONE ×3 (11:31→21:55)
[2018-05-22] MEDS ORDERED: HEPARIN NA (PORCINE) 5,000 UNITS/ML 1ML VIAL SQ SCH (14:00)
--- NOTE | 2018-05-22 16:30 | PN ---
Physical Exam: SUBJECTIVE: Patient seen and examined at the bedside. poor historian. denies any recent alcohol abuse or drug abuse. OBJECTIVE: Vital Signs Period Temp Pulse Resp BP Sys/Cherry Pulse Ox Last 24 Hr 97.7 F-97.9 F 83-98 17-19 109-164/72-98 99-99 GENERAL: The patient is awake, alert, in no acute distress. forgetful HEAD: Normal with no signs of trauma. EYES: PERRL, extraocular movements intact, sclera anicteric, conjunctiva clear. No ptosis. ENT: Ears normal, nares patent, oropharynx clear without exudates, moist mucous membranes. NECK: Trachea midline, full range of motion, supple. LUNGS: Breath sounds equal, clear to auscultation bilaterally, no wheezes, no crackles, no accessory muscle use. HEART: Regular rate and rhythm EXTREMITIES: no edema. NEUROLOGICAL: Cranial nerves II through XII grossly intact. Normal speech, gait not observed. PSYCH: Normal mood, normal affect. SKIN: Warm, dry, normal turgor, no rashes or lesions noted Laboratory Results - last 24 hr 05/22/18 05/22/18 05/22/18 01:12 01:12 01:12 WBC 4.3 RBC 5.01 Hgb 15.3 Hct 46.1 D MCV 92.1 MCH 30.5 MCHC 33.2 RDW 14.6 D Plt Count 123 L D MPV 9.4 Absolute Neuts (auto) 2.8 Neutrophils % 65.0 Lymphocytes % 20.0 Monocytes % 13.0 H Eosinophils % 1.2 Basophils % 0.8 Nucleated RBC % 0 PT with INR 14.10 H INR 1.19 H PTT (Actin FS) Anticoagulation Therapy Puncture Site ABG pH ABG pCO2 at Pt Temp ABG pO2 at Pt Temp ABG HCO3 ABG O2 Sat (Measured) ABG O2 Content Ricardo Test O2 Delivery Device Oxygen Flow Rate Vent Mode Vent Rate Mechanical Rate Pressure Support Vent Sodium 139 Potassium 4.6 Chloride 109 H Carbon Dioxide 21 Anion Gap 9 BUN 9 Creatinine 0.9 Creat Clearance w eGFR > 60 Random Glucose 79 Calcium 9.0 Phosphorus Magnesium Total Bilirubin 2.4 H AST 43 H ALT 26 Alkaline Phosphatase 91 Ammonia Creatine Kinase 172 Creatine Kinase Index 0.6 CK-MB (CK-2) 1.2 Troponin I < 0.02 Total Protein 8.0 Albumin 3.3 L 05/22/18 05/22/18 05/22/18 01:12 01:12 01:20 WBC RBC Hgb Hct MCV MCH MCHC RDW Plt Count MPV Absolute Neuts (auto) Neutrophils % Lymphocytes % Monocytes % Eosinophils % Basophils % Nucleated RBC % PT with INR INR PTT (Actin FS) 25.8 Anticoagulation Therapy Puncture Site ABG pH ABG pCO2 at Pt Temp ABG pO2 at Pt Temp ABG HCO3 ABG O2 Sat (Measured) ABG O2 Content Ricardo Test O2 Delivery Device Oxygen Flow Rate Vent Mode Vent Rate Mechanical Rate Pressure Support Vent Sodium Potassium Chloride Carbon Dioxide Anion Gap BUN Creatinine Creat Clearance w eGFR Random Glucose Calcium Phosphorus Magnesium Total Bilirubin AST ALT Alkaline Phosphatase Ammonia 177.00 H Creatine Kinase Creatine Kinase Index Cancelled CK-MB (CK-2) Cancelled Troponin I Total Protein Albumin 05/22/18 05/22/18 05/22/18 05:59 06:30 07:20 WBC RBC Hgb Hct MCV MCH MCHC RDW Plt Count MPV Absolute Neuts (auto) Neutrophils % Lymphocytes % Monocytes % Eosinophils % Basophils % Nucleated RBC % PT with INR INR PTT (Actin FS) Anticoagulation Therapy No Result Required. Puncture Site Right radial ABG pH 7.40 ABG pCO2 at Pt Temp 29.6 L ABG pO2 at Pt Temp 92.7 ABG HCO3 18.9 L ABG O2 Sat (Measured) 97.0 ABG O2 Content 19.6 Ricardo Test Positive O2 Delivery Device No Result Required. Oxygen Flow Rate No Vent Mode No Result Required. Vent Rate No Result Required. Mechanical Rate No Result Required. Pressure Support Vent No Result Required. Sodium 140 Potassium 3.8 Chloride 110 H Carbon Dioxide 20 L Anion Gap 9 BUN 10 Creatinine 0.9 Creat Clearance w eGFR > 60 Random Glucose 87 Calcium 9.0 Phosphorus Magnesium Total Bilirubin 2.5 H AST 31 ALT 24 Alkaline Phosphatase 86 Ammonia 71.25 H Creatine Kinase Creatine Kinase Index CK-MB (CK-2) Troponin I Total Protein 7.7 Albumin 3.3 L 05/22/18 05/22/18 07:30 07:30 WBC RBC Hgb Hct MCV MCH MCHC RDW Plt Count MPV Absolute Neuts (auto) Neutrophils % Lymphocytes % Monocytes % Eosinophils % Basophils % Nucleated RBC % PT with INR 13.70 H INR 1.16 H PTT (Actin FS) 32.6 Anticoagulation Therapy Puncture Site ABG pH ABG pCO2 at Pt Temp ABG pO2 at Pt Temp ABG HCO3 ABG O2 Sat (Measured) ABG O2 Content Ricardo Test O2 Delivery Device Oxygen Flow Rate Vent Mode Vent Rate Mechanical Rate Pressure Support Vent Sodium Potassium Chloride Carbon Dioxide Anion Gap BUN Creatinine Creat Clearance w eGFR Random Glucose Calcium Phosphorus 2.9 Magnesium 2.4 Total Bilirubin AST ALT Alkaline Phosphatase Ammonia Creatine Kinase Creatine Kinase Index CK-MB (CK-2) Troponin I Total Protein Albumin Active Medications Generic Name Dose Route Start Last Admin Trade Name Freq PRN Reason Stop Dose Admin Enoxaparin Sodium 40 mg 05/22/18 10:00 05/22/18 11:12 Lovenox - SQ 40 mg DAILY PAUL Administration Lactobacillus Acidophilus 1 tab 05/23/18 10:00 Bacid - PO DAILY PAUL Lactulose 45 gm 05/22/18 10:45 05/22/18 11:16 Cephulac (Oral Use) PO 45 gm Q6H PAUL Administration Levetiracetam 1,000 mg 05/22/18 10:45 05/22/18 11:29 Keppra Injection - IVPB Not Given BID [facility] Non-Formulary Medication 400 mg 05/22/18 22:00 Sorafenib Tosylate [Nexavar] PO BID PAUL Rifaximin 550 mg 05/22/18 10:00 Xifaxan - PO BID PAUL Spironolactone 50 mg 05/22/18 10:45 05/22/18 11:13 Aldactone - PO 50 mg DAILY PAUL Administration Trazodone HCl 50 mg 05/22/18 22:00 Desyrel - PO HS [facility] ASSESSMENT/PLAN: Patient is a 67 year old male with a significant past medical history of alcohol abuse, hepatitis C, hepatic encephalopathy, and hypertension. He presents to the ED for AMS and slurred speech. Patient lives at home alone and his sister check up on him. Patient's sister found him altered on the phone and activated 911. In the ED patient endorses that he is noncompliant with his medications and that this has happened before in the past and has been hospitalized in the past for the same reason. admitted with AMS in 01/2018 felt to be combination of seizure/hepatic encephalopathy, and now readmitted with AMS. Neuro: Acute metabolic encephalopathy likely secondary to hepatic encehalopathy. Ammonia 117 on admission, now 71 after lactulose MD given in the ED. Head CT negative for any acute process. unclear if he is compliant with home medications and takes it consistently. He is currently oriented but forgetful. States he has appointment with quantitative manager on May 28 for follow up. will cont current meds for now and to consult with GI for further management. stressed importance of medication compliance. will continue home dose of lactulose and monitor ammonia levels. Patient is more awake and alert. answering questions appropriately. blood and urine cultures pending to rule out acute infection. Monitor electrolytes. Lactulose 45mg po q6 continue rafaximin 550mg po bid Seizure, history. On Keppra. Head CT without acute process. Patient refusing to take Keppra at home and here despite stressing importance of same. Will consult neuro. GI: Hepatocellular Carcinoma. Patient currently on Nexavar anticancer medication. States med makes him feel fatigued, sleepy. Unclear if patient is taking this med consistently Card: Hypertension. monitor and continue home meds. CHF. no signs of volume overload. monitor intake and output. No Fluids Monitor Electrolytes soft diet Lovenox 40 mg sq QD Visit type - Emergency Visit Emergency Visit: Yes ED Registration Date: 05/22/18 Care time: The patient presented to the Emergency Department on the above date and was hospitalized for further evaluation of their emergent condition. - New Patient This patient is new to me today: Yes Date on this admission: 05/22/18 - Critical Care Critical Care patient: No - Discharge Referral Referred to [facility] Med P.C.: No
[2018-05-22] MEDS ORDERED: traMADol HCL 50 MG TABLET PO ONE (16:45)
[2018-05-22] MEDS: RIFAXIMIN 550 MG TABLET (UD) PO SCH ×2 (16:59→22:36)
[2018-05-22] MEDS: traZODone HCL 50 MG TABLET (FP) PO SCH (22:38)
[2018-05-23] MEDS ORDERED: PT OWN MED DRAWER 7, Y5N ONE ×2 (02:28→05:15)
[2018-05-23] MEDS: LACTULOSE 20 GM/30 ML UDC (FOR ORAL USE ONLY) PO SCH ×3 (04:43→15:45)
[2018-05-23 07:50] LABS: BASO % 0.6 % (0-2.0); EOS % 0.3 % (0-4.5); HEMATOCRIT 47.1 % (35.4-49); HEMOGLOBIN 15.4 GM/dL (11.7-16.9); LYMPH % 21.8 % (8-40); MCH 30.5 pg (25.7-33.7); MCHC 32.8 g/dl (32.0-35.9); MEAN CELL VOLUME 93.1 fl (80-96); MEAN PLT VOLUME 9.4 fl (7.5-11.1); MONO % 13.3 % (3.8-10.2); PLATELET COUNT 129 K/MM3 (134-434); RBC 5.06 M/mm3 (4.00-5.60); RDW 14.1 % (11.9-15.9); WHITE BLOOD COUNT 4.8 K/mm3 (4.0-10.0)
[2018-05-23 08:24] LABS: ALBUMIN 3.4 g/dl (3.4-5.0); ALK PHOS 86 U/L (45-117); ANION GAP 14 MMOL/L (8-16); BILIRUBIN,TOTAL 2.7 mg/dL (0.2-1); BLOOD UREA NITROGEN 14 mg/dL (7-18); CALCIUM 9.3 mg/dL (8.5-10.1); CHLORIDE 113 mmol/L (98-107); CO2 17 mmol/L (21-32); CREATININE 1.1 mg/dL (0.55-1.3); GLUCOSE,RANDOM 91 mg/dL (74-106); MAGNESIUM 2.2 mg/dL (1.8-2.4); POTASSIUM 4.1 mmol/L (3.5-5.1); SGOT/AST 27 U/L (15-37); SGPT/ALT 25 U/L (13-61); SODIUM 144 mmol/L (136-145); TOT PROT 8.5 g/dl (6.4-8.2)
[2018-05-23] MEDS: levETIRAcetam 500 MG/5 ML INJECTION VIAL IVPB SCH ×4 (09:32→22:16)
[2018-05-23] MEDS: RIFAXIMIN 550 MG TABLET (UD) PO SCH ×2 (09:34→22:16)
[2018-05-23] MEDS: SPIRONOLACTONE 25 MG TABLET (FP) PO SCH (09:35)
[2018-05-23] MEDS: ENOXAPARIN NA (PORCINE) 40 MG/0.4 ML DISP.SYRIN SQ SCH (09:35)
[2018-05-23] MEDS: LACTOBACILLUS ACIDOPHILUS 1 TABLET PO SCH (09:35)
--- NOTE | 2018-05-23 10:32 | CON.NEURO ---
Consult - History of Present Illness History of Present Illness: 67 y/o gentleman with a significant past medical history of alcohol abuse, Hepatitic C, hepatic encephalopathy, and HTN who presented to [facility] early this morning due to altered mental status and slurred speech. Pt lives alone at home and is called every morning around 7 am by his sister who checks in on pt and makes sure he is compliant with his medications. as per chart, Sister endorses that she called her brother around 7 am yesterday morning. Pt answered the phone and he was noted to have slurred speech and incoherent language. Sister again called her brother later that night and pt did not answer the phone call. Sister subsequently called the pt's landlord and had landlord enter the pt's apartment. Pt at that time was lethargic and exhibited slurred speech. This AM, s/p NV, with clenching abdomen, pain + HD CT IMPRESSION: Mild volume loss without significant interval change or gross acute intracranial pathology. Correlate clinically to determine further evaluation and follow-up. A preliminary report was forwarded by the [facility] service, [employer]. 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 (traumatic subdural hematoma) Cardio/Vascular: Yes: CHF, HTN Pulmonary: Yes: Pulmonary Embolus Gastrointestinal: Yes: GERD Hepatobiliary: Yes: Cirrhosis, Hepatitis B, Hepatitis C Psych: Yes: Addictions (cocaine, etoh, nicotine ) Musculoskeletal: Yes: Other - Past Surgical History Past Surgical History: Yes: Joint Replacement (Total right hip replacement ), Laminectomy - Alcohol/Substance Use Hx Alcohol Use: Yes History of Substance Use: reports: Cocaine - Smoking History Smoking history: Smoker current status UNK Have you smoked in the past 12 months: No Aproximately how many cigarettes per day: 0 - Social History Usual Living Arrangement: Alone Home Medications - Allergies Allergies/Adverse Reactions: Allergies Allergy/AdvReac Type Severity Reaction Status Date / Time No Known Allergies Allergy Verified 05/22/18 00:29 - Home Medications Home Medications: Ambulatory Orders Furosemide [Lasix] 20 mg PO DAILY 01/28/18 Lactobacillus Acidophilus [Acidophilus] 1 each PO DAILY 01/28/18 Lactulose 30 gm PO Q4H 01/28/18 Magnesium Oxide 400 mg PO DAILY 01/28/18 Omeprazole 20 mg PO DAILY 01/28/18 Polyethylene Glycol 3350 [Miralax 119 gm Btl -] 17 gm PO DAILY 01/28/18 Sorafenib Tosylate [Nexavar] 400 mg PO BID 01/28/18 Spironolactone 50 mg PO DAILY 01/28/18 traZODone HCL [Trazodone HCl] 50 mg PO HS 01/28/18 Rifaximin [Xifaxan -] 550 mg PO BID tablet 01/31/18 levETIRAcetam [Keppra -] 1,000 mg PO BID #28 tablet 01/31/18 Physical Exam-Neuro Vital Signs: Vital Signs Temperature 97.9 F 05/23/18 05:25 Pulse Rate 87 05/23/18 05:25 Respiratory Rate 20 05/23/18 05:33 Blood Pressure 133/91 05/23/18 05:25 O2 Sat by Pulse Oximetry (%) 96 05/23/18 05:33 Constitutional: Yes: Mild Distress (awake, oriented to place, not exact date, EOMI, NO facial, no tremor, no asterixis, rest nonfocal ) Labs: CBC, BMP 05/23/18 06:25 05/23/18 06:25 INR, PTT INR 1.16 (0.83-1.09) H 05/22/18 07:30 Imaging - Results Cat Scan: Report Reviewed, Image Reviewed Problem List - Problems (1) Hepatic encephalopathy Code(s): K72.90 - HEPATIC FAILURE, UNSPECIFIED WITHOUT COMA (2) Alcohol abuse Code(s): F10.10 - ALCOHOL ABUSE, UNCOMPLICATED (3) Altered mental status Code(s): R41.82 - ALTERED MENTAL STATUS, UNSPECIFIED Qualifiers: Altered mental status type: unspecified Qualified Code(s): R41.82 - Altered mental status, unspecified Assessment/Plan 67 y/o gentleman with a significant past medical history of alcohol abuse, Hepatitic C, hepatic encephalopathy, and HTN who presented to [facility] early this morning due to altered mental status and slurred speech. found to have elevated ammonia AP : encephalopathy likely metabolic, hepatic no evidence of new cerebral vascular event no clear evidence of DT clinically GI WAGONER- due for abdominal Xray later today FU ammonia, B12, B1 and TSH DR GALVEZ
[2018-05-23] MEDS ORDERED: ONDANSETRON 4 MG/2 ML VIAL IVPUSH PRN (11:06)
[2018-05-23] MEDS ORDERED: morphine CARPU-JECT 2 MG/1 ML DISP.SYRIN IVPUSH PRN (13:51)
--- NOTE | 2018-05-23 14:40 | PN ---
Physical Exam: SUBJECTIVE: Patient seen and examined at the bedside. c/o of abdominal discomfort, pain. had one episode of yellow bile vomitus and 1 episode of diarrhea. abdomen mildly tender. OBJECTIVE: will keep npo abdominal xray shows - extensive dilated loops of bowel throughout the mid and upper abdomen. appearance of possible obstruction. may be calcified gallstone in the right upper quadrant. there is scoliosis with arthritic change. Vital Signs Period Temp Pulse Resp BP Sys/Cherry Pulse Ox Last 24 Hr 97.9 F-98.5 F 84-90 18-20 122-133/67-91 96-99 GENERAL: The patient is awake, alert, in no acute distress. forgetful times, also anxious HEAD: Normal with no signs of trauma. EYES: PERRL, extraocular movements intact, sclera anicteric, conjunctiva clear. No ptosis. ENT: Ears normal, nares patent, oropharynx clear without exudates, moist mucous membranes. NECK: Trachea midline, full range of motion, supple. LUNGS: Breath sounds equal, clear to auscultation bilaterally, no wheezes, no crackles, no accessory muscle use. HEART: Regular rate and rhythm EXTREMITIES: no edema. NEUROLOGICAL: Cranial nerves II through XII grossly intact. Normal speech, gait not observed. PSYCH: Normal mood, normal affect. SKIN: Warm, dry, normal turgor, no rashes or lesions noted Laboratory Results - last 24 hr 05/23/18 05/23/18 05/23/18 06:25 06:25 06:25 WBC 4.8 RBC 5.06 Hgb 15.4 Hct 47.1 MCV 93.1 MCH 30.5 MCHC 32.8 RDW 14.1 Plt Count 129 L MPV 9.4 Absolute Neuts (auto) 3.1 Neutrophils % 64.0 Lymphocytes % 21.8 Monocytes % 13.3 H Eosinophils % 0.3 Basophils % 0.6 Nucleated RBC % 0 Sodium 144 Potassium 4.1 Chloride 113 H Carbon Dioxide 17 L Anion Gap 14 BUN 14 Creatinine 1.1 Creat Clearance w eGFR > 60 Random Glucose 91 Calcium 9.3 Magnesium 2.2 Total Bilirubin 2.7 H AST 27 ALT 25 Alkaline Phosphatase 86 Ammonia 55.50 H Total Protein 8.5 H Albumin 3.4 Active Medications Generic Name Dose Route Start Last Admin Trade Name Freq PRN Reason Stop Dose Admin Enoxaparin Sodium 40 mg 05/22/18:00 05/23/18 09:35 Lovenox - SQ 40 mg DAILY PAUL Administration Sodium Chloride 1,000 mls @ 75 mls/hr 05/23/18 11:15 Normal Saline - IV ASDIR PAUL Lactobacillus Acidophilus 1 tab 05/23/18 10:00 05/23/18 09:35 Bacid - PO Not Given DAILY [facility] Lactulose 45 gm 05/22/18 10:45 05/23/18 11:17 Cephulac (Oral Use) PO Not Given Q6H PAUL Levetiracetam 1,000 mg 05/22/18 10:45 05/23/18 09:39 Keppra Injection - IVPB Not Given BID [facility] Morphine Sulfate 1 mg 05/23/18 13:51 Morphine Injection - IVPUSH Q6H PRN PAIN Non-Formulary Medication 400 mg 05/22/18 22:00 Sorafenib Tosylate [Nexavar] PO BID [facility] Ondansetron HCl 4 mg 05/23/18 11:06 Zofran Injection IVPUSH Q6H PRN NAUSEA Rifaximin 550 mg 05/22/18 10:00 05/23/18 09:34 Xifaxan - PO 550 mg BID [facility] Administration Spironolactone 50 mg 05/22/18 10:45 05/23/18 09:35 Aldactone - PO Not Given DAILY PAUL Trazodone HCl 50 mg 05/22/18 22:00 05/22/18 22:38 Desyrel - PO Not Given HS [facility] ASSESSMENT/PLAN: Patient is a 67 year old male with a significant past medical history of alcohol abuse, hepatitis C, hepatic encephalopathy, and hypertension. He presents to the ED for AMS and slurred speech. Patient lives at home alone and his sister check up on him. Patient's sister found him altered on the phone and activated 911. In the ED patient endorses that he is noncompliant with his medications and that this has happened before in the past and has been hospitalized in the past for the same reason. admitted with AMS in 01/2018 felt to be combination of seizure/hepatic encephalopathy, and now readmitted with AMS. This morning patient developed acute abdominal pain and nausea. an abdominal xray shows possible obstruction, dilated bowels. Surgery has been consulted. GI: Abdominal pain, nausea, vomiting: Abdominal xray shows extensive dilated loops of bowel throughout the mid and upper abdomen. appearance of possible obstruction. may be calcified gallstone in the right upper quadrant. there is scoliosis with arthritic change. Surgery consulted. I discussed findings of the abdominal xray with patient and told him he will need an NGT. He refused. Said he had an NGT placed before and will not want to go through that again. Will discuss with him again once he is calmer. Will keep NPO and start IVF. Will manage his abdominal pain with low dose morphine with caution as well as protonix iv daily. Hepatocellular Carcinoma. Patient currently on Nexavar anticancer medication. States med makes him feel fatigued, sleepy. Unclear if patient is taking this med consistently Neuro: Acute metabolic encephalopathy likely secondary to hepatic encehalopathy. Mental status improved once ammonia levels decreased. On admission, ammonia levels 177, now 55. Patient likely non compliant with home medications. He lives alone and needs frequent check in and reminder from his sister to take his home medications. He has been refusing some of his home medications here. Head CT negative for any acute process. will continue home dose of lactulose and monitor ammonia levels. Patient is more awake and alert. answering questions appropriately. blood and urine cultures negative to date. Will continue to monitor electrolytes. Lactulose 45mg po q6 - will convert IL while NPO. continue rafaximin 550mg po bid Seizure, history. On Keppra. Head CT without acute process. Patient refusing to take Keppra at home and here despite stressing importance of same. Card: Hypertension. monitor and continue home meds. CHF. no signs of volume overload. monitor intake and output. fen No Fluids Monitor Electrolytes soft diet Lovenox 40 mg sq QD Today I spoke to patient's SW coordinator, Karen Friend @ [employer] [phone] cell. office [phone]. Discussed POC and discharge plan. Patient likely will need rehab as he reported to me that he has had multiple falls at home. He is also non compliant with his home medications and is re-admitted with AMS likely secondary to medication non compliance. He would benefit from SNF/rehab if accepted. He is refusing, but will continue to speak to him regarding benefits. Visit type - Emergency Visit Emergency Visit: Yes ED Registration Date: 05/22/18 Care time: The patient presented to the Emergency Department on the above date and was hospitalized for further evaluation of their emergent condition. - New Patient This patient is new to me today: No - Critical Care Critical Care patient: No - Discharge Referral Referred to [facility] No
--- NOTE | 2018-05-23 15:42 | CONSULT ---
Consult Consult Specialty:: General Surgery Reason for Consultation:: SBO - History of Present Illness Chief Complaint: SBO History of Present Illness: 67 yo man with PMH history of alcohol abuse, Hepatitic C, hepatic encephalopathy , and HTN who presented to ED early this morning due to altered mental status and slurred speech. He lives alone at home and is called every morning around 7 am by his sister who checks in on. His sister endorses that she called her brother around 7 am yesterday morning answered the phone with slurred speech and incoherent language. Sister again called her brother later that night and pt did not answer the phone call. Sister subsequently called the pt's landlord and had landlord enter the pt's apartment. Pt at that time was lethargic and exhibited slurred speech. Sister states that pt has been hospitalized twice in the past for the same reason. Abdomen was noted to be distended, Xrays show distended loops of small and large bowel. He is NPO, refusing NGT. Nurse reported large BM at lunch time. Patient's sister denies pt having c/o shortness of breath, nausea, vomiting, or chest pain. We were asked to assess. 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 (traumatic subdural hematoma) Cardio/Vascular: Yes: CHF, HTN Pulmonary: Yes: Pulmonary Embolus Gastrointestinal: Yes: GERD Hepatobiliary: Yes: Cirrhosis, Hepatitis B, Hepatitis C Psych: Yes: Addictions (cocaine, etoh, nicotine ) Musculoskeletal: Yes: Other - Past Surgical History Past Surgical History: Yes: Joint Replacement (Total right hip replacement ), Laminectomy - Alcohol/Substance Use Hx Alcohol Use: Yes History of Substance Use: reports: Cocaine - Smoking History Smoking history: Smoker current status UNK Have you smoked in the past 12 months: No Aproximately how many cigarettes per day: 0 - Social History Usual Living Arrangement: Alone Home Medications - Allergies Allergies/Adverse Reactions: Allergies Allergy/AdvReac Type Severity Reaction Status Date / Time No Known Allergies Allergy Verified 05/22/18 00:29 - Home Medications Home Medications: Ambulatory Orders Furosemide [Lasix] 20 mg PO DAILY 01/28/18 Lactobacillus Acidophilus [Acidophilus] 1 each PO DAILY 01/28/18 Lactulose 30 gm PO Q4H 01/28/18 Magnesium Oxide 400 mg PO DAILY 01/28/18 Omeprazole 20 mg PO DAILY 01/28/18 Polyethylene Glycol 3350 [Miralax 119 gm Btl -] 17 gm PO DAILY 01/28/18 Sorafenib Tosylate [Nexavar] 400 mg PO BID 01/28/18 Spironolactone 50 mg PO DAILY 01/28/18 traZODone HCL [Trazodone HCl] 50 mg PO HS 01/28/18 Rifaximin [Xifaxan -] 550 mg PO BID tablet 01/31/18 levETIRAcetam [Keppra -] 1,000 mg PO BID #28 tablet 01/31/18 Review of Systems - Review of Systems Constitutional: denies: Chills, Fever HENT: denies: Difficult Swallowing, Throat Pain Neck: denies: Decreased ROM, Pain on Movement Cardiovascular: denies: Chest Pain, Palpitations Respiratory: denies: Cough, SOB Gastrointestinal: denies: Constipation, Diarrhea Genitourinary: denies: Flank Pain, Frequency, Lesions Breasts: reports: No Symptoms Reported. denies: Pain Musculoskeletal: denies: Muscle Cramps, Muscle Weakness Integumentary: denies: Lesions, Lump, Rash Neurological: denies: Seizure, Syncope Endocrine: denies: Unexplained Weight Gain, Unexplained Weight Loss Hematology/Lymphatic: denies: Easily Bruised, Excessive Bleeding Psychiatric: reports: Anxiety. denies: Depression Physical Exam Vital Signs: Vital Signs Temperature 97.9 F 05/23/18 10:00 Pulse Rate 90 05/23/18 10:00 Respiratory Rate 20 05/23/18 10:00 Blood Pressure 124/87 05/23/18 10:00 O2 Sat by Pulse Oximetry (%) 96 05/23/18 05:33 Constitutional: Yes: Well Nourished, No Distress, Anxious Eyes: Yes: Conjunctiva Clear, EOM Intact Respiratory: Yes: Regular, CTA Bilaterally Gastrointestinal: Yes: Soft, Distention, Hypoactive Bowel Sounds. No: Tenderness, Tenderness, Epigastrium, Tenderness, Rebound Renal/: No: CVA Tenderness - Left, CVA Tenderness - Right Musculoskeletal: No: Muscle Pain, Muscle Weakness Extremities: No: Cool, Cyanosis Edema: No Peripheral Pulses WNL: Yes Integumentary: No: Jaundice, Rash Neurological: No: Alert, Oriented Psychiatric: No: Alert, Oriented Labs: CBC, BMP 05/23/18 06:25 05/23/18 06:25 Imaging - Results X-ray: Report Reviewed, Image Reviewed (SBO pattern) Cat Scan: Pending Problem List - Problems (1) SBO (small bowel obstruction) Assessment/Plan: 67yo male MMP including Hepatic malignancy?, cirrhosis MELD 13, (6% 3-month mortality) Child's Class C (1-3years life expectancy), Grade 1-2 hepatic encephalopathy. Abdominal distension is likely to to ileus. He will not likely require acute surgical intervention. NPO and IVF hydration NGT decompression serial labs CT scan with contrast via NGT serial abdominal exams will follow Code(s): K56.609 - UNSP INTESTNL OBST, UNSP TO PARTIAL VERSUS COMPLETE OBST (2) Hepatic encephalopathy Code(s): K72.90 - HEPATIC FAILURE, UNSPECIFIED WITHOUT COMA (3) Acute renal failure Code(s): N17.9 - ACUTE KIDNEY FAILURE, UNSPECIFIED (4) Hepatitis B Code(s): B19.10 - UNSPECIFIED VIRAL HEPATITIS B WITHOUT HEPATIC COMA Qualifiers: Viral hepatitis chronicity: chronic (5) Hepatitis C Code(s): B19.20 - UNSPECIFIED VIRAL HEPATITIS C WITHOUT HEPATIC COMA (6) Weakness Code(s): R53.1 - WEAKNESS
[2018-05-23] MEDS: morphine SULFATE 4 MG/ML VIAL IVPUSH PRN (18:05)
[2018-05-23] MEDS: SODIUM CHLORIDE 1,000 ML IV SCH (18:11)
--- NOTE | 2018-05-23 20:20 | CONS ---
DATE OF CONSULTATION: DATE OF DICTATION: 05/23/2018 GASTROENTEROLOGY CONSULTATION HISTORY OF PRESENT ILLNESS: The patient is a 67-year-old man with a past medical history of alcohol abuse, hepatitis C, previously treated with Harvoni, hepatic encephalopathy, and hypertension who presents to the hospital with altered mental status. He complains of abdominal discomfort - periumbilical - worse after eating with associated nausea and vomiting. He is a very poor historian, however does admit to having ascites in the past with a paracentesis over a year ago as well as an endoscopy many years ago and a colonoscopy in 2017. In the emergency room he was noted to have an ammonia of 177. He states his last drink was many years ago. PAST MEDICAL AND SURGICAL HISTORY: As per the HPI. ALLERGIES: No known drug allergies. SOCIAL HISTORY: Does not drink. He used to drink the past. Does not smoke or use drugs. FAMILY HISTORY: Noncontributory. HOME MEDICATIONS: Reviewed and include Lasix, lactobacillus, magnesium, omeprazole, Miralax, Nexavar, spironolactone, trazodone, rifaximin, and Keppra. REVIEW OF SYSTEMS: Negative except for pertinent positives in the HPI. He is an extremely poor historian. PHYSICAL EXAMINATION: VITAL SIGNS: Temperature 97, pulse 86, respiratory rate 18, blood pressure 140/ 87, pulse oximetry 98% on room air. GENERAL: In no acute distress. Pleasant man. HEENT: Anicteric sclerae. CARDIOVASCULAR: S1, S2, regular rate and rhythm. LUNGS: Bilaterally clear to auscultation. ABDOMEN: Nontender. Normal bowel sounds. EXTREMITIES: No edema. LABORATORY: White blood cell count 4, hemoglobin and hematocrit 15/47, MCV 93, platelet count 129, INR 1.16. Sodium 144, potassium 4, BUN/creatinine 14/1.1, total bilirubin 2.7, AST 27, ALT 25, alkaline phosphatase 86, ammonia currently is 55 on admission 177. He had an abdominal x-ray which has not resulted at this time. He had 1 from earlier in the day which reveals dilated loops of bowel throughout the mid and upper abdomen. This has an appearance of a possible obstruction. There is no other abdominal imaging available. IMPRESSION: 1. Altered mental status with history of cirrhosis. These findings may be secondary to portal systemic encephalopathy; however, other etiology of altered mental status in this patient with liver disease should be excluded such as an infectious etiology / intra- abdominal pathology. 2. Abdominal pain with dilated loops of bowel on the abdominal x-ray. An obstructive process cannot be excluded. RECOMMENDATION: CT scan of the abdomen/pelvis with contrast. Would recommend rifaximin 550 mg p.o. b.i.d. Protonix 40 mg p.o. daily . N.p.o. IV fluids pending the CT scan results. Avoid NSAID. Tylenol at low doses can be used for pain. Trend labs daily while hospitalized. Continue Nexavar for HCC. Surgery evaluation. [place] culture. Keep electrolytes within normal limits. Further recommendations pending CT scan results. Patient will be followed by the GI service. DO CHARLEY DALAL/[id number] MTDD
[2018-05-23] MEDS ORDERED: LACTULOSE 20 GM/30 ML UDC (FOR RECTAL USE ONLY) PR ONE (21:00)
[2018-05-23] MEDS: traZODone HCL 50 MG TABLET (FP) PO SCH (22:16)
[2018-05-23] MEDS: SORAFENIB TOSYLATE 200 MG PO SCH (22:16)
[2018-05-24] MEDS: SODIUM CHLORIDE 1,000 ML IV SCH ×3 (06:29→23:50)
[2018-05-24 07:39] LABS: BASO % 0.9 % (0-2.0); EOS % 1.4 % (0-4.5); HEMATOCRIT 40.2 % (35.4-49); HEMOGLOBIN 13.2 GM/dL (11.7-16.9); LYMPH % 27.1 % (8-40); MCH 30.6 pg (25.7-33.7); MCHC 32.9 g/dl (32.0-35.9); MEAN PLT VOLUME 9.6 fl (7.5-11.1); MONO % 19.3 % (3.8-10.2); NEUT % 51.3 % (42.8-82.8); PLATELET COUNT 113 K/MM3 (134-434); RBC 4.32 M/mm3 (4.00-5.60)
[2018-05-24 08:12] LABS: ALBUMIN 2.6 g/dl (3.4-5.0); ALK PHOS 64 U/L (45-117); ANION GAP 7 MMOL/L (8-16); BILIRUBIN,TOTAL 2.4 mg/dL (0.2-1); BLOOD UREA NITROGEN 16 mg/dL (7-18); CALCIUM 7.4 mg/dL (8.5-10.1); CHLORIDE 113 mmol/L (98-107); CO2 23 mmol/L (21-32); CREATININE 0.8 mg/dL (0.55-1.3); GLUCOSE,RANDOM 74 mg/dL (74-106); POTASSIUM 3.8 mmol/L (3.5-5.1); SGOT/AST 22 U/L (15-37); SGPT/ALT 17 U/L (13-61); SODIUM 142 mmol/L (136-145); TOT PROT 6.5 g/dl (6.4-8.2)
--- NOTE | 2018-05-24 09:01 | PN ---
GI Progress Note Subjective: the change in mental status has resolved while on Xifaxan, he has been having bowel movement.Reviewed FUA consistent with ileus vs early SBO - Objective Vital Signs: Vital Signs Temperature 97.8 F 05/24/18 08:36 Pulse Rate 70 05/24/18 08:36 Respiratory Rate 18 05/24/18 08:36 Blood Pressure 132/78 05/24/18 08:36 O2 Sat by Pulse Oximetry (%) 96 05/23/18 05:33 Constitutional: Well Nourished Eyes: Yes: Conjunctiva Clear HENT: Yes: Atraumatic Neck: Yes: Trachea Midline Cardiovascular: Yes: Regular Rate and Rhythm Respiratory: Yes: CTA Bilaterally Gastrointestinal Inspection: Yes: Distention (--mild) ...Palpate: Yes: Soft. No: Firm/Rigid, Guarding, Hepatomegaly, Mass, Pulsatile Mass, Splenomegaly, Tenderness ...Percussion: Yes: Tympanitic Labs: CBC, BMP 05/24/18 06:24 05/24/18 06:24 INR, PTT INR 1.16 (0.83-1.09) H 05/22/18 07:30 Problem List - Problems (1) SBO (small bowel obstruction) Assessment/Plan: vs ileus R> consider clear liquids if ok with surgery will need ct enterography if not done recently Dr Huynh covering for Dr Weaver in am Code(s): K56.609 - UNSP INTESTNL OBST, UNSP TO PARTIAL VERSUS COMPLETE OBST (2) Altered mental status Code(s): R41.82 - ALTERED MENTAL STATUS, UNSPECIFIED Qualifiers: Altered mental status type: unspecified Qualified Code(s): R41.82 - Altered mental status, unspecified (3) Encephalopathy Assessment/Plan: --resolved Code(s): G93.40 - ENCEPHALOPATHY, UNSPECIFIED (4) HCC (hepatocellular carcinoma) Code(s): C22.0 - LIVER CELL CARCINOMA
--- NOTE | 2018-05-24 10:04 | PN ---
Progress Note, Physician Chief Complaint: SBO History of Present Illness: 67 yo man with PMH history of alcohol abuse, Hepatitic C, hepatic encephalopathy , and HTN who presented to ED early this morning due to altered mental status and slurred speech.Denies abdominal pain, persistent SBO pattern on Xray, no emesis while NPO. reports loose stool and no flatus. - Current Medication List Current Medications: Active Medications Benzocaine/Butamben/Tetracaine HCl (Cetacaine [place] -) 1 spray TP DAILY [facility] Enoxaparin Sodium (Lovenox -) 40 mg SQ DAILY [facility] Last Admin: 05/23/18 09:35 Dose: 40 mg Sodium Chloride (Normal Saline -) 1,000 mls @ 75 mls/hr IV ASDIR [facility] Last Admin: 05/24/18 06:29 Dose: 75 mls/hr Lactobacillus Acidophilus (Bacid -) 1 tab PO DAILY [facility] Last Admin: 05/23/18 09:35 Dose: Not Given Levetiracetam (Keppra Injection -) 1,000 mg IVPB BID [facility] Last Admin: 05/23/18 22:16 Dose: Not Given Morphine Sulfate (Morphine Sulfate) 4 mg IVPUSH Q4H PRN PRN Reason: PAIN LEVEL 7 - 10 Last Admin: 05/23/18 18:05 Dose: 4 mg Patient's Own Medication (Non- Formulary) ( Sorafenib Tosylate [ Nexavar] 200 Mg Tab) 400 mg PO BID [facility] Last Admin: 05/23/18 22:16 Dose: Not Given Ondansetron HCl (Zofran Injection) 4 mg IVPUSH Q6H PRN PRN Reason: NAUSEA Pantoprazole Sodium (Protonix Iv) 40 mg IVPUSH DAILY [facility] Rifaximin (Xifaxan -) 550 mg PO BID [facility] Last Admin: 05/23/18 22:16 Dose: Not Given Spironolactone (Aldactone -) 50 mg PO DAILY [facility] Last Admin: 05/23/18 09:35 Dose: Not Given Trazodone HCl (Desyrel -) 50 mg PO HS [facility] Last Admin: 05/23/18 22:16 Dose: Not Given - Objective Vital Signs: Vital Signs Temperature 97.8 F 05/24/18 08:36 Pulse Rate 70 05/24/18 08:36 Respiratory Rate 18 05/24/18 08:36 Blood Pressure 132/78 05/24/18 08:36 O2 Sat by Pulse Oximetry (%) 96 05/23/18 05:33 Vital Signs Period Temp Pulse Resp BP Sys/Cherry Pulse Ox Last 24 Hr 97.8 F-98.6 F 68-88 18-20 117-141/68-88 Intake & Output 05/23/18 05/24/18 05/24/18 23:59 07:59 15:59 Intake Total 300 828 Balance 300 828 Intake: IV 300 828 Normal Saline - 1,000 ml 300 828 @ 75 mls/hr IV ASDIR [facility] Rx#:[id number] Other: Voiding Method Incontinent Incontinent Constitutional: Yes: Well Nourished, No Distress, Calm Eyes: Yes: Conjunctiva Clear, EOM Intact HENT: Yes: Atraumatic, Normocephalic Neck: Yes: Supple, Trachea Midline Cardiovascular: Yes: Regular Rate and Rhythm, S1, S2 Respiratory: Yes: Regular, CTA Bilaterally Gastrointestinal: Yes: Soft, Distention, Hypoactive Bowel Sounds. No: Tenderness, Tenderness, Epigastrium, Tenderness, Rebound Genitourinary: No: CVA Tenderness - Left, CVA Tenderness - Right Musculoskeletal: No: Muscle Pain, Muscle Weakness Extremities: No: Cool, Cyanosis Edema: No Peripheral Pulses WNL: Yes Peripheral Pulses: Left Radial: 2+, Right Radial: 2+, Left Doralis Pedis: 2+, Right Dorsalis Pedis: 2+ Integumentary: No: Jaundice, Petechiae, Pressure Ulcer, Rash Neurological: Yes: Alert, Oriented, Confusion (may ne confused - discussed with sister his decisions and judgement) Psychiatric: Yes: Alert, Oriented Labs: CBC, BMP 05/24/18 06:24 05/24/18 06:24 INR, PTT INR 1.16 (0.83-1.09) H 05/22/18 07:30 Problem List - Problems (1) SBO (small bowel obstruction) Assessment/Plan: 67yo male MMP including Hepatic malignancy?, cirrhosis MELD 13, (6% 3-month mortality) Child's Class C (1-3years life expectancy), Grade 1-2 hepatic encephalopathy. Abdominal distension is likely to to ileus. He will not likely require acute surgical intervention. NPO and IVF hydration NGT decompression serial labs CT scan with contrast via NGT serial abdominal exams will follow Code(s): K56.609 - UNSP INTESTNL OBST, UNSP TO PARTIAL VERSUS COMPLETE OBST (2) Hepatic encephalopathy Code(s): K72.90 - HEPATIC FAILURE, UNSPECIFIED WITHOUT COMA (3) Acute renal failure Code(s): N17.9 - ACUTE KIDNEY FAILURE, UNSPECIFIED (4) Hepatitis B Code(s): B19.10 - UNSPECIFIED VIRAL HEPATITIS B WITHOUT HEPATIC COMA Qualifiers: Viral hepatitis chronicity: chronic (5) Hepatitis C Code(s): B19.20 - UNSPECIFIED VIRAL HEPATITIS C WITHOUT HEPATIC COMA (6) Weakness Code(s): R53.1 - WEAKNESS
[2018-05-24] MEDS ORDERED: LACTULOSE 20 GM/30 ML UDC (FOR RECTAL USE ONLY) PR ONE (10:34)
--- NOTE | 2018-05-24 10:34 | PN ---
Physical Exam: SUBJECTIVE: Patient seen and examined at the bedside. OBJECTIVE: more cooperative, agreeing to ngt. Vital Signs Period Temp Pulse Resp BP Sys/Cherry Pulse Ox Last 24 Hr 97.8 F-98.6 F 68-88 18-20 117-141/- GENERAL: The patient is awake, alert, in no acute distress. forgetful times, also anxious HEAD: Normal with no signs of trauma. EYES: PERRL, extraocular movements intact, sclera anicteric, conjunctiva clear. No ptosis. ENT: Ears normal, nares patent, oropharynx clear without exudates, moist mucous membranes. NECK: Trachea midline, full range of motion, supple. LUNGS: Breath sounds equal, clear to auscultation bilaterally, no wheezes, no crackles, no accessory muscle use. HEART: Regular rate and rhythm EXTREMITIES: no edema. NEUROLOGICAL: Cranial nerves II through XII grossly intact. Normal speech, gait not observed. PSYCH: Normal mood, normal affect. SKIN: Warm, dry, normal turgor, no rashes or lesions noted Laboratory Results - last 24 hr 05/24/18 05/24/18 05/24/18 06:24 06:24 06:24 WBC 4.0 RBC 4.32 Hgb 13.2 Hct 40.2 MCV 93.0 MCH 30.6 MCHC 32.9 RDW 14.0 Plt Count 113 L MPV 9.6 Absolute Neuts (auto) 2.1 Neutrophils % 51.3 Lymphocytes % 27.1 D Monocytes % 19.3 H Eosinophils % 1.4 D Basophils % 0.9 Nucleated RBC % 0 Sodium 142 Potassium 3.8 Chloride 113 H Carbon Dioxide 23 Anion Gap 7 L BUN 16 Creatinine 0.8 Creat Clearance w eGFR > 60 Random Glucose 74 Calcium 7.4 L Total Bilirubin 2.4 H AST 22 ALT 17 Alkaline Phosphatase 64 Ammonia 84.94 H Total Protein 6.5 Albumin 2.6 L Active Medications Generic Name Dose Route Start Last Admin Trade Name Freq PRN Reason Stop Dose Admin Benzocaine/Butamben/Tetracaine HCl 1 spray 05/24/18 10:00 Cetacaine [place] - TP DAILY [facility] Enoxaparin Sodium 40 mg 05/22/18 10:00 05/23/18 09:35 Lovenox - SQ 40 mg DAILY [facility] Administration Sodium Chloride 1,000 mls @ 75 mls/hr 05/23/18 11:15 05/24/18 06:29 Normal Saline - IV 75 mls/hr ASDIR [facility] Administration Lactobacillus Acidophilus 1 tab 05/23/18 10:00 05/23/18 09:35 Bacid - PO Not Given DAILY [facility] Levetiracetam 1,000 mg 05/22/18 10:45 05/23/18 22:16 Keppra Injection - IVPB Not Given BID [facility] Morphine Sulfate 4 mg 05/23/18 16:26 05/23/18 18:05 Morphine Sulfate IVPUSH 4 mg Q4H PRN Administration PAIN LEVEL 7 - 10 Patient's Own 400 mg 05/23/18 22:00 05/23/18 22:16 Medication (Non- PO Not Given Formulary) ( BID [facility] Sorafenib Tosylate [ Nexavar] 200 Mg Tab) Ondansetron HCl 4 mg 05/23/18 11:06 Zofran Injection IVPUSH Q6H PRN NAUSEA Pantoprazole Sodium 40 mg 05/24/18 10:00 Protonix Iv IVPUSH DAILY [facility] Rifaximin 550 mg 05/22/18 10:00 05/23/18 22:16 Xifaxan - PO Not Given BID [facility] Spironolactone 50 mg 05/22/18 10:45 05/23/18 09:35 Aldactone - PO Not Given DAILY [facility] Trazodone HCl 50 mg 05/22/18 22:00 05/23/18 22:16 Desyrel - PO Not Given HS [facility] ASSESSMENT/PLAN: Patient is a 67 year old male with a significant past medical history of alcohol abuse, hepatitis C, hepatic encephalopathy, and hypertension. He presents to the ED for AMS and slurred speech. Patient lives at home alone and his sister check up on him. Patient's sister found him altered on the phone and activated 911. In the ED patient endorses that he is noncompliant with his medications and that this has happened before in the past and has been hospitalized in the past for the same reason. admitted with AMS in 01/2018 felt to be combination of seizure/hepatic encephalopathy, and now readmitted with AMS. This morning patient developed acute abdominal pain and nausea. an abdominal xray shows possible obstruction, dilated bowels. Surgery has been consulted. GI: Abdominal pain, nausea, vomiting: Abdominal xray shows extensive dilated loops of bowel throughout the mid and upper abdomen. appearance of possible obstruction. may be calcified gallstone in the right upper quadrant. there is scoliosis with arthritic change. NGT placed, surgery following. for abdominal Ct with contrast per GI Hepatocellular Carcinoma. Patient currently on Nexavar anticancer medication. States med makes him feel fatigued, sleepy. Unclear if patient is taking this med consistently at home. Neuro: Acute metabolic encephalopathy likely secondary to hepatic encehalopathy, resolved. Mental status improved once ammonia levels decreased. On admission, ammonia levels 177, now 85. will continue to monitor ammonia levels. continue rafaximin 550mg po bid, OK lactulose Seizure, history. On Keppra. Head CT without acute process. Patient refusing to take Keppra at home and here despite stressing importance of same. Card: Hypertension. monitor and continue home meds. CHF. no signs of volume overload. monitor intake and output. fen ivf, npo spoke to patient's SW coordinator, Karenyvrose Friend @ [facility] [phone] cell. office [phone] and updated on above. Visit type - Emergency Visit Emergency Visit: Yes ED Registration Date: 05/22/18 Care time: The patient presented to the Emergency Department on the above date and was hospitalized for further evaluation of their emergent condition. - New Patient This patient is new to me today: No - Critical Care Critical Care patient: No - Discharge Referral Referred to [facility] Med P.C.: No
[2018-05-24] MEDS: ENOXAPARIN NA (PORCINE) 40 MG/0.4 ML DISP.SYRIN SQ SCH (12:06)
[2018-05-24] MEDS: morphine SULFATE 4 MG/ML VIAL IVPUSH PRN ×2 (12:06→23:51)
[2018-05-24] MEDS: LACTOBACILLUS ACIDOPHILUS 1 TABLET PO SCH (12:09)
[2018-05-24] MEDS: TETRACAINE/BENZOCAINE/BUTAMBEN 20 GM SPR TP SCH (12:09)
[2018-05-24] MEDS: SPIRONOLACTONE 25 MG TABLET (FP) PO SCH (12:09)
[2018-05-24] MEDS: RIFAXIMIN 550 MG TABLET (UD) PO SCH ×2 (12:10→22:50)
[2018-05-24] MEDS: SORAFENIB TOSYLATE 200 MG PO SCH ×2 (12:10→22:50)
[2018-05-24] MEDS: levETIRAcetam 500 MG/5 ML INJECTION VIAL IVPB SCH ×2 (12:10→22:50)
[2018-05-24] MEDS ORDERED: PT OWN MED DRAWER 7, Y5N ONE (14:09)
[2018-05-24] MEDS: PANTOPRAZOLE SODIUM 40 MG VIAL IVPUSH SCH (14:24)
[2018-05-24] MEDS: traZODone HCL 50 MG TABLET (FP) PO SCH (22:50)
[2018-05-25 08:27] LABS: ALBUMIN 2.8 g/dl (3.4-5.0); ALK PHOS 65 U/L (45-117); ANION GAP 8 MMOL/L (8-16); BILIRUBIN,TOTAL 3.1 mg/dL (0.2-1); BLOOD UREA NITROGEN 18 mg/dL (7-18); CALCIUM 8.1 mg/dL (8.5-10.1); CHLORIDE 111 mmol/L (98-107); CO2 23 mmol/L (21-32); CREATININE 0.8 mg/dL (0.55-1.3); GLUCOSE,RANDOM 72 mg/dL (74-106); SGOT/AST 24 U/L (15-37); SGPT/ALT 17 U/L (13-61); SODIUM 142 mmol/L (136-145); TOT PROT 6.6 g/dl (6.4-8.2)
[2018-05-25 08:29] LABS: BASO % 0.6 % (0-2.0); EOS % 1.5 % (0-4.5); HEMATOCRIT 39.4 % (35.4-49); LYMPH % 21.5 % (8-40); MCH 30.7 pg (25.7-33.7); MCHC 32.9 g/dl (32.0-35.9); MEAN CELL VOLUME 93.3 fl (80-96); MEAN PLT VOLUME 9.4 fl (7.5-11.1); MONO % 15.8 % (3.8-10.2); NEUT % 60.6 % (42.8-82.8); PLATELET COUNT 91 K/MM3 (134-434); RBC 4.22 M/mm3 (4.00-5.60); RDW 13.8 % (11.9-15.9); WHITE BLOOD COUNT 3.8 K/mm3 (4.0-10.0)
--- NOTE | 2018-05-25 08:54 | PN ---
Progress Note, Physician Chief Complaint: SBO History of Present Illness: 67 yo man with PMH history of alcohol abuse, Hepatitic C, hepatic encephalopathy , and HTN who presented to ED early this morning due to altered mental status and slurred speech.Denies abdominal pain, persistent SBO pattern on Xray,BNGT placed and CTscan with contrast performed. reports loose stool and flatus. - Current Medication List Current Medications: Active Medications Benzocaine/Butamben/Tetracaine HCl (Cetacaine [place] -) 1 spray TP DAILY [facility] Last Admin: 05/24/18 12:09 Dose: 1 spray Enoxaparin Sodium (Lovenox -) 40 mg SQ DAILY [facility] Last Admin: 05/24/18 12:06 Dose: 40 mg Sodium Chloride (Normal Saline -) 1,000 mls @ 75 mls/hr IV ASDIR [facility] Last Admin: 05/24/18 23:50 Dose: 75 mls/hr Lactobacillus Acidophilus (Bacid -) 1 tab PO DAILY [facility] Last Admin: 05/24/18 12:09 Dose: Not Given Levetiracetam (Keppra Injection -) 1,000 mg IVPB BID [facility] Last Admin: 05/24/18 22:50 Dose: Not Given Morphine Sulfate (Morphine Sulfate) 4 mg IVPUSH Q4H PRN PRN Reason: PAIN LEVEL 7 - 10 Last Admin: 05/24/18 23:51 Dose: 4 mg Patient's Own Medication (Non- Formulary) ( Sorafenib Tosylate [ Nexavar] 200 Mg Tab) 400 mg PO BID [facility] Last Admin: 05/24/18 22:50 Dose: Not Given Ondansetron HCl (Zofran Injection) 4 mg IVPUSH Q6H PRN PRN Reason: NAUSEA Pantoprazole Sodium (Protonix Iv) 40 mg IVPUSH DAILY [facility] Last Admin: 05/24/18 14:24 Dose: 40 mg Rifaximin (Xifaxan -) 550 mg PO BID [facility] Last Admin: 05/24/18 22:50 Dose: Not Given Spironolactone (Aldactone -) 50 mg PO DAILY [facility] Last Admin: 05/24/18 12:09 Dose: Not Given Trazodone HCl (Desyrel -) 50 mg PO HS [facility] Last Admin: 05/24/18 22:50 Dose: Not Given - Objective Vital Signs: Vital Signs Temperature 97.7 F 05/25/18 06:08 Pulse Rate 69 05/25/18 06:08 Respiratory Rate 18 05/25/18 06:08 Blood Pressure 125/72 05/25/18 06:08 O2 Sat by Pulse Oximetry (%) 96 05/24/18 21:00 Vital Signs Period Temp Pulse Resp BP Sys/Cherry Pulse Ox Last 24 Hr 97.7 F-97.9 F 69-87 18-20 125-143/72-88 96-96 Intake & Output 05/24/18 05/25/18 05/25/18 23:59 07:59 15:59 Intake Total 1200 525 Balance 1200 525 Weight 187 lb 9 oz Intake: IV 1200 525 Normal Saline - 1,000 ml 1200 525 @ 75 mls/hr IV ASDIR [facility] Rx#:[id number] Other: Voiding Method Incontinent # Unmeasured Voids Void 2 Bowel Movement Yes # Bowel Movements 1 Weight Measurement Method Standing Scale Constitutional: Yes: Well Nourished, No Distress, Calm Eyes: Yes: Conjunctiva Clear, EOM Intact HENT: Yes: Atraumatic, Normocephalic Neck: Yes: Supple, Trachea Midline Cardiovascular: Yes: Regular Rate and Rhythm, S1, S2 Respiratory: Yes: Regular, CTA Bilaterally Gastrointestinal: Yes: Normal Bowel Sounds, Soft, Hepatomegaly. No: Distention , Tenderness, Tenderness, Epigastrium, Tenderness, Rebound ...Rectal Exam: Yes: Deferred Genitourinary: No: CVA Tenderness - Left, CVA Tenderness - Right Breast(s): No: Mass, Skin Changes Musculoskeletal: No: Muscle Pain, Muscle Weakness Extremities: No: Cool, Cyanosis Edema: No Peripheral Pulses WNL: Yes Peripheral Pulses: Left Radial: 2+, Right Radial: 2+, Left Doralis Pedis: 2+, Right Dorsalis Pedis: 2+ Integumentary: No: Jaundice, Rash Neurological: Yes: Alert, Oriented Psychiatric: Yes: Alert, Oriented Labs: CBC, BMP 05/25/18 07:30 05/25/18 07:30 INR, PTT INR 1.16 (0.83-1.09) H 05/22/18 07:30 Problem List - Problems (1) SBO (small bowel obstruction) Assessment/Plan: 67yo male MMP including Hepatic malignancy?, cirrhosis MELD 13, (6% 3-month mortality) Child's Class C (1-3years life expectancy), Grade 1-2 hepatic encephalopathy. Abdominal distension is likely to to ileus. He will not likely require acute surgical intervention. CT with contrast show interval improvement of obstructive pattern and minimal output from NGT. Patient is passing gas and stool. Clear liquid diet IVF hydration NGT discontinued serial labs bowel regimen by GI serial abdominal exams will follow Code(s): K56.609 - UNSP INTESTNL OBST, UNSP TO PARTIAL VERSUS COMPLETE OBST (2) Hepatic encephalopathy Code(s): K72.90 - HEPATIC FAILURE, UNSPECIFIED WITHOUT COMA (3) Acute renal failure Code(s): N17.9 - ACUTE KIDNEY FAILURE, UNSPECIFIED (4) Hepatitis B Code(s): B19.10 - UNSPECIFIED VIRAL HEPATITIS B WITHOUT HEPATIC COMA Qualifiers: Viral hepatitis chronicity: chronic (5) Hepatitis C Code(s): B19.20 - UNSPECIFIED VIRAL HEPATITIS C WITHOUT HEPATIC COMA Qualifiers: Viral hepatitis chronicity: chronic (6) Weakness Code(s): R53.1 - WEAKNESS
--- NOTE | 2018-05-25 10:35 | PN ---
Physical Exam: SUBJECTIVE: Patient seen and examined at the bedside. In no acute distress. NGT removed. feels better. Does not want to go to rehab, refusing. wants to go home. OBJECTIVE: Vital Signs Period Temp Pulse Resp BP Sys/Cherry Pulse Ox Last 24 Hr 97.7 F-97.9 F 69-87 18-20 125-143/72-88 96 GENERAL: The patient is awake, alert, in no acute distress. forgetful times, also anxious HEAD: Normal with no signs of trauma. EYES: PERRL, extraocular movements intact, sclera anicteric, conjunctiva clear. No ptosis. ENT: Ears normal, nares patent, oropharynx clear without exudates, moist mucous membranes. NECK: Trachea midline, full range of motion, supple. LUNGS: Breath sounds equal, clear to auscultation bilaterally, no wheezes, no crackles, no accessory muscle use. HEART: Regular rate and rhythm EXTREMITIES: no edema. ABDOMEN: soft, non distended, + bowel sounds NEUROLOGICAL: Cranial nerves II through XII grossly intact. Normal speech, gait not observed. PSYCH: Normal mood, normal affect. SKIN: Warm, dry, normal turgor, no rashes or lesions noted Laboratory Results - last 24 hr 05/25/18 05/25/18 05/25/18 07:30 07:30 07:30 WBC 3.8 L RBC 4.22 Hgb 13.0 Hct 39.4 MCV 93.3 MCH 30.7 MCHC 32.9 RDW 13.8 Plt Count 91 L MPV 9.4 Absolute Neuts (auto) 2.3 Neutrophils % 60.6 Lymphocytes % 21.5 D Monocytes % 15.8 H Eosinophils % 1.5 Basophils % 0.6 Nucleated RBC % 0 Sodium 142 Potassium 4.0 Chloride 111 H Carbon Dioxide 23 Anion Gap 8 BUN 18 Creatinine 0.8 Creat Clearance w eGFR > 60 Random Glucose 72 L Calcium 8.1 L Total Bilirubin 3.1 H AST 24 ALT 17 Alkaline Phosphatase 65 Ammonia 63.60 H Total Protein 6.6 Albumin 2.8 L Active Medications Generic Name Dose Route Start Last Admin Trade Name Freq PRN Reason Stop Dose Admin Benzocaine/Butamben/Tetracaine HCl 1 spray 05/24/18 10:00 05/24/18 12:09 Cetacaine [place] - TP 1 spray DAILY PAUL Administration Enoxaparin Sodium 40 mg 05/22/18 10:00 05/24/18 12:06 Lovenox - SQ 40 mg DAILY PAUL Administration Sodium Chloride 1,000 mls @ 75 mls/hr 05/23/18 11:15 05/24/18 23:50 Normal Saline - IV 75 mls/hr ASDIR PAUL Administration Lactobacillus Acidophilus 1 tab 05/23/18 10:00 05/24/18 12:09 Bacid - PO Not Given DAILY PAUL Levetiracetam 1,000 mg 05/22/18 10:45 05/24/18 22:50 Keppra Injection - IVPB Not Given BID PAUL Morphine Sulfate 4 mg 05/23/18 16:26 05/24/18 23:51 Morphine Sulfate IVPUSH 4 mg Q4H PRN Administration PAIN LEVEL 7 - 10 Patient's Own 400 mg 05/23/18 22:00 05/24/18 22:50 Medication (Non- PO Not Given Formulary) ( BID PAUL Sorafenib Tosylate [ Nexavar] 200 Mg Tab) Ondansetron HCl 4 mg 05/23/18 11:06 Zofran Injection IVPUSH Q6H PRN NAUSEA Pantoprazole Sodium 40 mg 05/24/18 10:00 05/24/18 14:24 Protonix Iv IVPUSH 40 mg DAILY PAUL Administration Rifaximin 550 mg 05/22/18 10:00 05/24/18 22:50 Xifaxan - PO Not Given BID PAUL Spironolactone 50 mg 05/22/18 10:45 05/24/18 12:09 Aldactone - PO Not Given DAILY PAUL Trazodone HCl 50 mg 05/22/18 22:00 05/24/18 22:50 Desyrel - PO Not Given HS [facility] ASSESSMENT/PLAN: Patient is a 67 year old male with a significant past medical history of alcohol abuse, hepatitis C, hepatic encephalopathy, and hypertension. He presents to the ED for AMS and slurred speech. Patient lives at home alone and his sister check up on him. Patient's sister found him altered on the phone and activated 911. In the ED patient endorses that he is noncompliant with his medications and that this has happened before in the past and has been hospitalized in the past for the same reason. admitted with AMS in 01/2018 felt to be combination of seizure/hepatic encephalopathy, and now readmitted with AMS. This morning patient developed acute abdominal pain and nausea. an abdominal xray shows possible obstruction, dilated bowels. Surgery has been consulted. GI: Abdominal pain, nausea, vomiting: Abdominal xray shows extensive dilated loops of bowel throughout the mid and upper abdomen. appearance of possible obstruction. may be calcified gallstone in the right upper quadrant. there is scoliosis with arthritic change. Abdominal Ct with no evidence of obstruction. NGT removed and diet advanced to clears. Advance diet per surgery. Hepatocellular Carcinoma. Patient currently on Nexavar anticancer medication. States med makes him feel fatigued, sleepy. Unclear if patient is taking this med consistently at home. Patient has outpatient follow up on Monday with his liver specialist. Neuro: Acute metabolic encephalopathy likely secondary to hepatic encehalopathy, resolved. Mental status improved once ammonia levels decreased. On admission, ammonia levels 177, now trending down. will continue to monitor ammonia levels daily. continue rafaximin 550mg po bid, lactulose Seizure, history. On Keppra. Head CT without acute process. Patient refusing to take Keppra at home and here despite stressing importance of same. Card: Hypertension. monitor and continue home meds. CHF. no signs of volume overload. monitor intake and output. fen ivf, diet advanced to clears Visit type - Emergency Visit Emergency Visit: Yes ED Registration Date: 05/22/18 Care time: The patient presented to the Emergency Department on the above date and was hospitalized for further evaluation of their emergent condition. - New Patient This patient is new to me today: No - Critical Care Critical Care patient: No - Discharge Referral Referred to [facility] Med P.C.: No
[2018-05-25] MEDS ORDERED: BISACODYL 5 MG TABLET.DR (FP) PO ONE (13:20)
[2018-05-25] MEDS ORDERED: PT OWN MED DRAWER 7, Y5N ONE (14:13)
[2018-05-25] MEDS: SPIRONOLACTONE 25 MG TABLET (FP) PO SCH (14:23)
[2018-05-25] MEDS: LACTOBACILLUS ACIDOPHILUS 1 TABLET PO SCH (14:23)
[2018-05-25] MEDS: SORAFENIB TOSYLATE 200 MG PO SCH ×2 (14:24→22:46)
[2018-05-25] MEDS: RIFAXIMIN 550 MG TABLET (UD) PO SCH ×2 (14:24→22:47)
[2018-05-25] MEDS: levETIRAcetam 500 MG/5 ML INJECTION VIAL IVPB SCH ×2 (14:25→22:54)
[2018-05-25] MEDS: ENOXAPARIN NA (PORCINE) 40 MG/0.4 ML DISP.SYRIN SQ SCH (14:25)
[2018-05-25] MEDS: TETRACAINE/BENZOCAINE/BUTAMBEN 20 GM SPR TP SCH (14:25)
[2018-05-25] MEDS: SODIUM CHLORIDE 1,000 ML IV SCH (14:31)
[2018-05-25] MEDS: PANTOPRAZOLE SODIUM 40 MG VIAL IVPUSH SCH (14:31)
[2018-05-25] MEDS: LACTULOSE 20 GM/30 ML UDC (FOR ORAL USE ONLY) PO SCH ×2 (18:23→22:43)
[2018-05-25] MEDS: traZODone HCL 50 MG TABLET (FP) PO SCH (22:43)
[2018-05-25] MEDS: SENNOSIDES 8.8 MG/5 ML BULK BOTTLE PO SCH (22:45)
[2018-05-26] MEDS ORDERED: PT OWN MED DRAWER 7, Y5N ONE ×3 (02:13→20:57)
[2018-05-26] MEDS ORDERED: POLYETHYLENE GLYCOL 3350 119 GM BTL PO ONE (08:34)
--- NOTE | 2018-05-26 08:35 | PN ---
Physical Exam: SUBJECTIVE: Patient seen and examined at the bedside. Denies abdominal pain. had 2 bms today OBJECTIVE: Vital Signs Period Temp Pulse Resp BP Sys/Cherry Pulse Ox Last 24 Hr 97.5 F-98.8 F 84-94 18-20 123-146/75-95 96 GENERAL: The patient is awake, alert, in no acute distress. forgetful times HEAD: Normal with no signs of trauma. EYES: PERRL, extraocular movements intact, sclera anicteric, conjunctiva clear. No ptosis. ENT: Ears normal, nares patent, oropharynx clear without exudates, moist mucous membranes. NECK: Trachea midline, full range of motion, supple. LUNGS: Breath sounds equal, clear to auscultation bilaterally, no wheezes, no crackles, no accessory muscle use. HEART: Regular rate and rhythm EXTREMITIES: no edema. ABDOMEN: soft, mildly distended this morning, then had 2 BMS, + bowel sounds, no nausea or vomiting NEUROLOGICAL: Cranial nerves II through XII grossly intact. Normal speech, gait not observed. PSYCH: Normal mood, normal affect. SKIN: Warm, dry, normal turgor, no rashes or lesions noted Laboratory Results - last 24 hr 05/25/18 07:30 WBC 3.8 L RBC 4.22 Hgb 13.0 Hct 39.4 MCV 93.3 MCH 30.7 MCHC 32.9 RDW 13.8 Plt Count 91 L MPV 9.4 Absolute Neuts (auto) 2.3 Neutrophils % 60.6 Lymphocytes % 21.5 D Monocytes % 15.8 H Eosinophils % 1.5 Basophils % 0.6 Nucleated RBC % 0 Active Medications Generic Name Dose Route Start Last Admin Trade Name Neelq PRN Reason Stop Dose Admin Benzocaine/Butamben/Tetracaine HCl 1 spray 05/24/18 10:00 05/25/18 14:25 Cetacaine [place] - TP Not Given DAILY PAUL Enoxaparin Sodium 40 mg 05/22/18 10:00 05/25/18 14:25 Lovenox - SQ 40 mg DAILY PAUL Administration Lactobacillus Acidophilus 1 tab 05/23/18 10:00 05/25/18 14:23 Bacid - PO 1 tab DAILY PAUL Administration Lactulose 45 gm 05/25/18 18:00 05/25/18 22:43 Cephulac (Oral Use) PO 45 gm QID PAUL Administration Levetiracetam 1,000 mg 05/22/18 10:45 05/25/18 22:54 Keppra Injection - IVPB Not Given BID PAUL Morphine Sulfate 4 mg 05/23/18 16:26 05/24/18 23:51 Morphine Sulfate IVPUSH 4 mg Q4H PRN Administration PAIN LEVEL 7 - 10 Patient's Own 400 mg 05/23/18 22:00 05/25/18 22:46 Medication (Non- PO Not Given Formulary) ( BID PAUL Sorafenib Tosylate [ Nexavar] 200 Mg Tab) Ondansetron HCl 4 mg 05/23/18 11:06 Zofran Injection IVPUSH Q6H PRN NAUSEA Pantoprazole Sodium 40 mg 05/26/18 10:00 Protonix - PO DAILY PAUL Polyethylene Glycol 17 gm 05/26/18 08:34 Miralax (For Daily Use) - PO 05/26/18 08:35 ONCE ONE Rifaximin 550 mg 05/22/18 10:00 05/25/18 22:47 Xifaxan - PO 550 mg BID PAUL Administration Senna 8.8 mg 05/25/18 22:00 05/25/18 22:45 Senna Oral Solution - PO 8.8 mg HS PAUL Administration Spironolactone 50 mg 05/22/18 10:45 05/25/18 14:23 Aldactone - PO 50 mg DAILY PAUL Administration Trazodone HCl 50 mg 05/22/18 22:00 05/25/18 22:43 Desyrel - PO 50 mg HS PAUL Administration ASSESSMENT/PLAN: Patient is a 67 year old male with a significant past medical history of alcohol abuse, hepatitis C, hepatic encephalopathy, and hypertension. He presents to the ED for AMS and slurred speech. Patient lives at home alone and his sister check up on him. Patient's sister found him altered on the phone and activated 911. In the ED patient endorses that he is noncompliant with his medications and that this has happened before in the past and has been hospitalized in the past for the same reason. admitted with AMS in 01/2018 felt to be combination of seizure/hepatic encephalopathy, and now readmitted with AMS. Patient developed abdominal pain during hospitalization and an abdominal xray showed SBO. An NGT was placed on 05/24/2018 and bowel rest was initiated. On his NGT was removed once SBO improved. He diet has been advanced and he has tolerated clears. He will be advanced to regular diet today. Problem list: Abdominal pain, resolved SBO, resolved Hepatocelluar carcinoma, under treatment Acute metabolic encephalopathy 2/2 hepatic encephalopathy, resolved Seizure, on keppra, refusing Hypertension/chf history, controlled GI: Abdominal pain, nausea, vomiting/SBO, resolved. Abdominal xray consistent with SBO. NGT inserted 05/24/18, bowel rest initiated. NGT removed on 05/25/18. Abdominal Ct with no evidence of obstruction. NGT removed and diet advanced to clears. Advance diet to regular and monitor. Patient passing flatus, had two BMs this morning. Hepatocellular Carcinoma, under treatment Patient currently on Nexavar anticancer medication. States med makes him feel fatigued, sleepy. Unclear if patient is taking this med consistently at home. Patient has outpatient follow up on Monday with his liver specialist at [facility]. Neuro: Acute metabolic encephalopathy likely secondary to hepatic encehalopathy, resolved. Mental status improved once ammonia levels decreased. On admission, ammonia levels 177, now 43. will continue to monitor ammonia levels daily. continue rafaximin 550mg po bid, lactulose, aldactone. Seizure, history. On Keppra. Head CT without acute process. Patient refusing to take Keppra at home and here despite stressing importance of same. Card: Hypertension. monitor and continue home meds. CHF. no signs of volume overload. monitor intake and output. fen no ivf, diet advanced to regular physical therapy Visit type - Emergency Visit Emergency Visit: Yes ED Registration Date: 05/22/18 Care time: The patient presented to the Emergency Department on the above date and was hospitalized for further evaluation of their emergent condition. - New Patient This patient is new to me today: No - Critical Care Critical Care patient: No - Discharge Referral Referred to [facility] Med P.C.: No
[2018-05-26 10:03] LABS: BASO % 0.8 % (0-2.0); EOS % 1.1 % (0-4.5); HEMATOCRIT 37.6 % (35.4-49); HEMOGLOBIN 12.3 GM/dL (11.7-16.9); LYMPH % 24.4 % (8-40); MCH 30.7 pg (25.7-33.7); MCHC 32.7 g/dl (32.0-35.9); MEAN CELL VOLUME 93.8 fl (80-96); MEAN PLT VOLUME 9.4 fl (7.5-11.1); MONO % 15.7 % (3.8-10.2); PLATELET COUNT 86 K/MM3 (134-434); RBC 4.01 M/mm3 (4.00-5.60); RDW 13.5 % (11.9-15.9); WHITE BLOOD COUNT 3.1 K/mm3 (4.0-10.0)
[2018-05-26] MEDS: LACTOBACILLUS ACIDOPHILUS 1 TABLET PO SCH (10:05)
[2018-05-26] MEDS: ENOXAPARIN NA (PORCINE) 40 MG/0.4 ML DISP.SYRIN SQ SCH (10:05)
[2018-05-26] MEDS: LACTULOSE 20 GM/30 ML UDC (FOR ORAL USE ONLY) PO SCH ×4 (10:06→21:21)
[2018-05-26] MEDS: PANTOPRAZOLE 40 MG TABLET (FP) PO SCH (10:06)
[2018-05-26] MEDS: levETIRAcetam 500 MG/5 ML INJECTION VIAL IVPB SCH ×2 (10:07→21:23)
[2018-05-26] MEDS: SPIRONOLACTONE 25 MG TABLET (FP) PO SCH (10:09)
[2018-05-26] MEDS: SORAFENIB TOSYLATE 200 MG PO SCH ×2 (10:18→21:24)
[2018-05-26] MEDS: RIFAXIMIN 550 MG TABLET (UD) PO SCH ×2 (10:19→21:25)
[2018-05-26 10:44] LABS: ALBUMIN 2.6 g/dl (3.4-5.0); ALK PHOS 61 U/L (45-117); ANION GAP 4 MMOL/L (8-16); BILIRUBIN,TOTAL 2.4 mg/dL (0.2-1); BLOOD UREA NITROGEN 14 mg/dL (7-18); CALCIUM 8.5 mg/dL (8.5-10.1); CHLORIDE 112 mmol/L (98-107); CO2 22 mmol/L (21-32); CREATININE 1.1 mg/dL (0.55-1.3); GLUCOSE,RANDOM 124 mg/dL (74-106); POTASSIUM 3.2 mmol/L (3.5-5.1); SGOT/AST 26 U/L (15-37); SGPT/ALT 17 U/L (13-61); SODIUM 138 mmol/L (136-145); TOT PROT 6.5 g/dl (6.4-8.2)
[2018-05-26] MEDS ORDERED: KCL 10 MEQ IVPB 10 MEQ/100 ML INFUS.BAG IVPB SCH (11:30)
--- NOTE | 2018-05-26 12:24 | PN ---
Progress Note, Physician Chief Complaint: SBO History of Present Illness: 67 yo man with PMH history of alcohol abuse, Hepatitic C, hepatic encephalopathy , and HTN who presented to ED early this morning due to altered mental status and slurred speech.Denies abdominal pain, persistent SBO pattern on Xray,BNGT placed and CTscan with contrast performed. reports loose stool and flatus. - Current Medication List Current Medications: Active Medications Benzocaine/Butamben/Tetracaine HCl (Cetacaine [place] -) 1 spray TP DAILY [facility] Last Admin: 05/25/18 14:25 Dose: Not Given Enoxaparin Sodium (Lovenox -) 40 mg SQ DAILY [facility] Last Admin: 05/26/18 10:05 Dose: 40 mg Potassium Chloride (Potassium Chloride 10 Meq Premix Ivpb -) 10 meq in 100 mls @ 100 mls/hr IVPB Q60M [facility] Stop: 05/26/18 12:29 Lactobacillus Acidophilus (Bacid -) 1 tab PO DAILY [facility] Last Admin: 05/26/18 10:05 Dose: 1 tab Lactulose (Cephulac (Oral Use)) 45 gm PO QID [facility] Last Admin: 05/26/18 10:06 Dose: 45 gm Levetiracetam (Keppra Injection -) 1,000 mg IVPB BID [facility] Last Admin: 05/26/18 10:07 Dose: Not Given Morphine Sulfate (Morphine Sulfate) 4 mg IVPUSH Q4H PRN PRN Reason: PAIN LEVEL 7 - 10 Last Admin: 05/24/18 23:51 Dose: 4 mg Patient's Own Medication (Non- Formulary) ( Sorafenib Tosylate [ Nexavar] 200 Mg Tab) 400 mg PO BID [facility] Last Admin: 05/26/18 10:18 Dose: 400 mg Ondansetron HCl (Zofran Injection) 4 mg IVPUSH Q6H PRN PRN Reason: NAUSEA Pantoprazole Sodium (Protonix -) 40 mg PO DAILY [facility] Last Admin: 05/26/18 10:06 Dose: 40 mg Rifaximin (Xifaxan -) 550 mg PO BID [facility] Last Admin: 05/26/18 10:19 Dose: 550 mg Senna (Senna Oral Solution -) 8.8 mg PO HS [facility] Last Admin: 05/25/18 22:45 Dose: 8.8 mg Spironolactone (Aldactone -) 50 mg PO DAILY [facility] Last Admin: 05/26/18 10:09 Dose: 50 mg Trazodone HCl (Desyrel -) 50 mg PO [facility] Last Admin: 05/25/18 22:43 Dose: 50 mg - Objective Vital Signs: Vital Signs Temperature 98.4 F 05/26/18 06:00 Pulse Rate 84 05/26/18 06:00 Respiratory Rate 20 05/26/18 06:00 Blood Pressure 123/76 05/26/18 06:00 O2 Sat by Pulse Oximetry (%) 96 05/25/18 21:00 Vital Signs Period Temp Pulse Resp BP Sys/Cherry Pulse Ox Last 24 Hr 97.5 F-98.8 F 84-94 18-20 123-146/75-95 96 Intake & Output 05/25/18 05/26/18 05/26/18 23:59 07:59 15:59 Intake Total 250 350 Balance 250 350 Weight 188 lb Intake: Oral 250 350 Other: Voiding Method Toilet Diaper # Unmeasured Voids Void 1 2 Bowel Movement Yes Yes # Bowel Movements 1 Weight Measurement Method Chair Scale Constitutional: Yes: Well Nourished, No Distress, Calm Eyes: Yes: Conjunctiva Clear, EOM Intact HENT: Yes: Atraumatic, Normocephalic Neck: Yes: Supple, Trachea Midline Cardiovascular: Yes: Regular Rate and Rhythm, S1, S2 Respiratory: Yes: Regular, CTA Bilaterally Gastrointestinal: Yes: Normal Bowel Sounds, Soft. No: Distention, Tenderness, Tenderness, Epigastrium, Tenderness, Rebound ...Rectal Exam: Yes: Deferred Genitourinary: No: CVA Tenderness - Left, CVA Tenderness - Right Extremities: No: Cool, Cyanosis Edema: No Peripheral Pulses WNL: Yes Peripheral Pulses: Left Radial: 2+, Right Radial: 2+, Left Doralis Pedis: 2+, Right Dorsalis Pedis: 2+ Integumentary: No: Rash Neurological: Yes: Alert, Oriented, Confusion Psychiatric: Yes: Alert, Oriented Labs: CBC, BMP 05/26/18 09:15 05/26/18 09:15 INR, PTT INR 1.16 (0.83-1.09) H 05/22/18 07:30 Problem List - Problems (1) SBO (small bowel obstruction) Assessment/Plan: 67yo male MMP including Hepatic malignancy?, cirrhosis MELD 13, (6% 3-month mortality) Child's Class C (1-3years life expectancy), Grade 1-2 hepatic encephalopathy. Abdominal distension is likely to to ileus. He will not likely require acute surgical intervention. CT with contrast show interval improvement of obstructive pattern. now tolerating diet. Patient is passing gas and stool. Management per primary team Regular diet serial labs bowel regimen by GI serial abdominal exams discharge planning for f/u with oncologist Code(s): K56.609 - UNSP INTESTNL OBST, UNSP TO PARTIAL VERSUS COMPLETE OBST (2) Hepatic encephalopathy Code(s): K72.90 - HEPATIC FAILURE, UNSPECIFIED WITHOUT COMA (3) Acute renal failure Code(s): N17.9 - ACUTE KIDNEY FAILURE, UNSPECIFIED (4) Hepatitis B Code(s): B19.10 - UNSPECIFIED VIRAL HEPATITIS B WITHOUT HEPATIC COMA Qualifiers: Viral hepatitis chronicity: chronic (5) Hepatitis C Code(s): B19.20 - UNSPECIFIED VIRAL HEPATITIS C WITHOUT HEPATIC COMA Qualifiers: Viral hepatitis chronicity: chronic (6) Weakness Code(s): R53.1 - WEAKNESS
[2018-05-26] MEDS ORDERED: POTASSIUM CHLORIDE ORAL LIQUID 20 MEQ/15 ML PO ONE (14:16)
[2018-05-26] MEDS: TETRACAINE/BENZOCAINE/BUTAMBEN 20 GM SPR TP SCH (15:03)
[2018-05-26] MEDS: traZODone HCL 50 MG TABLET (FP) PO SCH (21:22)
[2018-05-26] MEDS: SENNOSIDES 8.8 MG/5 ML BULK BOTTLE PO SCH (21:25)
[2018-05-27 06:12] VITALS: TEMP 97.8
[2018-05-27 08:59] VITALS: BP 113/77; PULSE 82
[2018-05-27] MEDS ORDERED: PT OWN MED DRAWER 7, Y5N ONE (09:37)
[2018-05-27] MEDS: ENOXAPARIN NA (PORCINE) 40 MG/0.4 ML DISP.SYRIN SQ SCH (09:40)
[2018-05-27] MEDS: LACTOBACILLUS ACIDOPHILUS 1 TABLET PO SCH (09:41)
[2018-05-27] MEDS: PANTOPRAZOLE 40 MG TABLET (FP) PO SCH (09:41)
[2018-05-27] MEDS: SPIRONOLACTONE 25 MG TABLET (FP) PO SCH (09:41)
[2018-05-27] MEDS: TETRACAINE/BENZOCAINE/BUTAMBEN 20 GM SPR TP SCH (09:42)
[2018-05-27] MEDS: LACTULOSE 20 GM/30 ML UDC (FOR ORAL USE ONLY) PO SCH (09:42)
[2018-05-27] MEDS: levETIRAcetam 500 MG/5 ML INJECTION VIAL IVPB SCH (09:42)
[2018-05-27] MEDS: RIFAXIMIN 550 MG TABLET (UD) PO SCH (09:43)
[2018-05-27] MEDS: SORAFENIB TOSYLATE 200 MG PO SCH (09:43)
[2018-05-27 10:06] LABS: BASO % 0.8 % (0-2.0); EOS % 3.7 % (0-4.5); HEMOGLOBIN 12.1 GM/dL (11.7-16.9); LYMPH % 26.5 % (8-40); MCH 30.8 pg (25.7-33.7); MCHC 32.7 g/dl (32.0-35.9); MEAN CELL VOLUME 94.2 fl (80-96); MEAN PLT VOLUME 9.2 fl (7.5-11.1); MONO % 16.3 % (3.8-10.2); NEUT % 52.7 % (42.8-82.8); PLATELET COUNT 83 K/MM3 (134-434); RBC 3.93 M/mm3 (4.00-5.60); RDW 13.6 % (11.9-15.9)
--- NOTE | 2018-05-27 10:22 | DS ---
Physical Exam: SUBJECTIVE: Patient seen and examined at the bedside. Getting dressed, putting on clothes, wants to go home. OBJECTIVE: walking around room, steady gait. discharge today to his home. I spoke to his sister yesterday and informed her of hospitalization and recommendations Patient has appt tomorrow to see his liver specialist at [facility] patient ambulated with me from his room to the solarium and back, no assistive devices, gait steady, not short of breath. felt well and spoke to me about his appointment tomorrow to go to see his liver specialist at [facility]. tells me that his neighbor and his sister check up on him everyday to assure his safety. Vital Signs Period Temp Pulse Resp BP Sys/Cherry Pulse Ox Last 24 Hr 97.6 F-98.3 F 71-85 18-20 106-134/66-82 96 PHYSICAL EXAM GENERAL: The patient is awake, alert, in no acute distress. HEAD: Normal with no signs of trauma. EYES: PERRL, extraocular movements intact, sclera anicteric, conjunctiva clear. No ptosis. ENT: Ears normal, nares patent, oropharynx clear without exudates, moist mucous membranes. NECK: Trachea midline, full range of motion, supple. LUNGS: Breath sounds equal, clear to auscultation bilaterally, no wheezes, no crackles, no accessory muscle use. HEART: Regular rate and rhythm EXTREMITIES: no edema. ABDOMEN: soft, non distended,+ bowel sounds, no nausea or vomiting, tolerating diet. NEUROLOGICAL: Cranial nerves II through XII grossly intact. Normal speech, gait not observed. PSYCH: Normal mood, normal affect. SKIN: Warm, dry, normal turgor, no rashes or lesions noted LABS Laboratory Results - last 24 hr 05/26/18 05/26/18 05/27/18 09:15 09:15 09:25 WBC 3.0 L RBC 3.93 L Hgb 12.1 Hct 37.0 MCV 94.2 MCH 30.8 MCHC 32.7 RDW 13.6 Plt Count 83 L MPV 9.2 Absolute Neuts (auto) 1.6 Neutrophils % 52.7 Lymphocytes % 26.5 Monocytes % 16.3 H Eosinophils % 3.7 D Basophils % 0.8 Nucleated RBC % 0 Sodium 138 Potassium 3.2 L Chloride 112 H Carbon Dioxide 22 Anion Gap 4 L BUN 14 Creatinine 1.1 Creat Clearance w eGFR > 60 Random Glucose 124 H Calcium 8.5 Total Bilirubin 2.4 H AST 26 ALT 17 Alkaline Phosphatase 61 Ammonia 43.41 H Total Protein 6.5 Albumin 2.6 L HOSPITAL COURSE: Date of Admission:05/22/18 Date of Discharge: 05/27/18 ASSESSMENT/PLAN: Patient is a 67 year old male with a significant past medical history of alcohol abuse, hepatitis C, hepatic encephalopathy, and hypertension. He presents to the ED for AMS and slurred speech. Patient lives at home alone and his sister and neighbor checks up on him. Patient's sister found him altered on the phone and activated [id number]. In the ED patient endorses that he is noncompliant with his medications and that this has happened before in the past and has been hospitalized in the past for the same reason. admitted with AMS in 01/2018 felt to be combination of seizure/hepatic encephalopathy, and now readmitted with AMS. Patient developed abdominal pain during hospitalization and an abdominal xray showed SBO. An NGT was placed on 05/24/2018 and bowel rest was initiated. On his NGT was removed once SBO improved. He diet has been advanced and he has tolerated clears and advanced to regular. Hospital course by problem list. Problem list: Abdominal pain, resolved SBO, resolved Hepatocelluar carcinoma, under treatment Acute metabolic encephalopathy 2/2 hepatic encephalopathy, resolved Seizure, on keppra, refusing Hypertension/chf history, controlled GI: Abdominal pain, nausea, vomiting/SBO, resolved. Abdominal xray consistent with SBO. NGT inserted 05/24/18, bowel rest initiated. NGT removed on 05/25/18. Abdominal Ct with no evidence of obstruction. NGT removed and diet advanced regular which patient tolerated well. Patient passing flatus, had a BM this morning. abdomen soft, non distended. no pain. Hepatocellular Carcinoma, under treatment with specialist at [facility]. Patient currently on Nexavar anticancer medication. Assured me that he is taking his medication as prescribed. Patient has outpatient follow up on tomorrow at [facility]. Neuro: Acute metabolic encephalopathy secondary to hepatic encehalopathy, resolved. Mental status improved once ammonia levels decreased. On admission, ammonia levels 177, now 43. Patient to follow up with liver specialist tomorrow. continue rafaximin 550mg po bid, lactulose, aldactone. Seizure, history. On Keppra. Head CT without acute process. Patient refusing to take Keppra at home and here despite stressing importance of same. States he has not taken it in months. Encouraged to follow up with neurologist on discharge. He was evaluated by a neurologist during this hospitalization. Card: Hypertension. controlled, continue home meds. CHF. no signs of volume overload. cardiology outpatient follow up. discharge home today. discharge plan discussed with patient and patient's sister Anayeli Calixto who checks up on him often. Patient is stable for home discharge. Minutes to complete discharge: 60 Discharge Summary Reason For Visit: HEPATIC ENCEPHALOPATHY Current Active Problems Hepatic encephalopathy (Acute) SBO (small bowel obstruction) (Acute) Condition: Improved - Instructions Diet, Activity, Other Instructions: Mr. Mcdermott: You were admitted to [facility] for mental status changes and weakness. You were noted to not be at your best mentally. When we evaluated you and ran some tests, we noted that your ammonia levels were high at 177. We monitored your ammonia levels closely and now they have gone down significantly. It is important that you continue the Lactulose as directed without skipping doses. Also, during your hospitalization, you developed a bowel obstruction and we had to place and NGT and rested your bowels. Your small bowel obstruction has since resolved and now you are tolerating your diet. You can continue with a regular diet. Please note the following recommendations: #Abdominal pain and small bowel obstruction: Please continue to take laxatives as well as the lactulose. We gave you Colace and Senna which can be purchased over the counter. I will also call in a prescription for you. You should have a bowel movement every day. If you go 2 days without having a bowel movement, or having nausea or vomiting, please call your primary care doctor or go to the nearest emergency room. #Hepatocellular Carcinoma: Please continue the Nexavar and follow up with your liver specialist tomorrow as planned. #Altered mentation Your mentation is back to normal. If you find that you are more confused or more tired than usual, please report that to your sister or your primary care provider so that you can be seen right away. continue rafaximin 550mg twice daily, lactulose, aldactone daily #Seizures: You were on Keppra at home and in the hospital but you have refused to take this medication. You were seen by a neurologist here. I will attach his information so that you can follow up. Not taking this medication as prescribed puts you at risk for a seizure and will land you back to the hospital. Some people report that they have auras or that they feel tired or dizzy before having a seizure. We recommend that you please start taking the Keppra and follow up with a neurologist. Thank you for allowing us to care for you. I am available for questions. Fide Akira, NUTRITION SERVICES AIDE [phone] [facility] @ [facility] Referrals: Edgar Rondon DO [Staff Physician] - 1 Week Pako Alegre MD [Staff Physician] - 2 Weeks Disposition: HOME - Home Medications Comprehensive Discharge Medication List: Ambulatory Orders Furosemide [Lasix] 20 mg PO DAILY 01/28/18 Lactobacillus Acidophilus [Acidophilus] 1 each PO DAILY 01/28/18 Lactulose 30 gm PO Q4H 01/28/18 Magnesium Oxide 400 mg PO DAILY 01/28/18 Omeprazole 20 mg PO DAILY 01/28/18 Polyethylene Glycol 3350 [Miralax 119 gm Btl -] 17 gm PO DAILY 01/28/18 Sorafenib Tosylate [Nexavar] 400 mg PO BID 01/28/18 Spironolactone 50 mg PO DAILY 01/28/18 traZODone HCL [Trazodone HCl] 50 mg PO HS 01/28/18 Rifaximin [Xifaxan -] 550 mg PO BID tablet 01/31/18 levETIRAcetam [Keppra -] 1,000 mg PO BID #28 tablet 01/31/18 This patient is new to me today: No Emergency Visit: Yes ED Registration Date: 05/22/18 Care time: The patient presented to the Emergency Department on the above date and was hospitalized for further evaluation of their emergent condition. Critical Care patient: No - Discharge Referral Referred to [facility] No
[2018-05-27 11:09] LABS: ALBUMIN 2.7 g/dl (3.4-5.0); ALK PHOS 63 U/L (45-117); ANION GAP 7 MMOL/L (8-16); BILIRUBIN,TOTAL 1.8 mg/dL (0.2-1); BLOOD UREA NITROGEN 10 mg/dL (7-18); CALCIUM 8.6 mg/dL (8.5-10.1); CHLORIDE 110 mmol/L (98-107); CO2 23 mmol/L (21-32); GLUCOSE,RANDOM 112 mg/dL (74-106); MAGNESIUM 1.9 mg/dL (1.8-2.4); POTASSIUM 3.6 mmol/L (3.5-5.1); SGOT/AST 27 U/L (15-37); SGPT/ALT 19 U/L (13-61); SODIUM 140 mmol/L (136-145); TOT PROT 6.6 g/dl (6.4-8.2)
== END 2018-05-27 13:00 | disposition home or self-care (01) | DRG 442 ==
LOC: JER 00:02 → JERBED 04:55 → UNDOADMIN 06:11 → J7W 08:38
PROVIDERS: ADMIT Internal Medicine; ATTEND Nurse Practitioner Family
DX: K72.90 Hepatic failure, unspecified without coma (principal); C22.0 Liver cell carcinoma; B19.10 Unspecified viral hepatitis B without hepatic coma; E72.20 Disorder of urea cycle metabolism, unspecified; K56.609 Unspecified intestinal obstruction, unspecified as to partial versus complete obstruction; I11.0 Hypertensive heart disease with heart failure; I50.9 Heart failure, unspecified; K70.30 Alcoholic cirrhosis of liver without ascites; B19.20 Unspecified viral hepatitis C without hepatic coma; R56.9 Unspecified convulsions; F10.10 Alcohol abuse, uncomplicated; Z91.14 Patient's other noncompliance with medication regimen; K21.9 Gastro-esophageal reflux disease without esophagitis; E78.5 Hyperlipidemia, unspecified; I10 Essential (primary) hypertension; Z96.641 Presence of right artificial hip joint; R47.81 Slurred speech
CPT/HCPCS: 36415; 36600; 70450-TC; 71045-TC-FY; 74018-TC-FY; 74019-TC-FY; 74177-TC; 80053; 82140; 82550; 82553; 82803; 83735; 84100; 84484; 85025; 85610; 85730; 87040; 93005; 93010; 97116-GP; 97161-GP; 99284-25; J7030

== ENCOUNTER 2023-01-12 10:45 | Emergency (ER) | payer OTHER ==
[2023-01-12 11:47] VITALS: BMI 29.2
[2023-01-12 13:21] LABS: BASO % 0.6 % (0-2.0); EOS % 1.1 % (0-4.5); HEMATOCRIT 38.6 % (35.4-49); HEMOGLOBIN 13.1 GM/dL (11.7-16.9); LYMPH % 21.5 % (8-40); MCHC 33.9 g/dl (32.0-35.9); MEAN CELL VOLUME 85.7 fl (80-96); MEAN PLT VOLUME 8.8 fl (7.5-11.1); NEUT % 65.8 % (42.8-82.8); PLATELET COUNT 194 10^3/uL (134-434); RBC 4.51 M/mm3 (4.00-5.60); RDW 14.6 % (11.9-15.9); WHITE BLOOD COUNT 4.1 K/mm3 (4.0-10.0)
[2023-01-12 13:57] LABS: CALCIUM 9.1 mg/dL (8.5-10.1)
[2023-01-12 13:58] LABS: ALBUMIN 3.9 g/dl (3.4-5.0); BLOOD UREA NITROGEN 22.8 mg/dL (7-18); MAGNESIUM 2.7 mg/dL (1.8-2.4)
[2023-01-12 14:02] LABS: CREATININE 1.4 mg/dL (0.55-1.3)
[2023-01-12 14:03] LABS: BILIRUBIN,TOTAL 0.7 mg/dL (0.2-1)
[2023-01-12 14:06] LABS: N-TERMINAL BNP 209.7 pg/ml (5-125)
[2023-01-12] MEDS ORDERED: INSULIN REGULAR HUMAN 100 UNITS/ML *VIAL IVPUSH ONE (15:39)
[2023-01-12] MEDS ORDERED: DEXTROSE 50%-WATER - 25 GM/50 ML VIAL IVPUSH ONE (15:40)
[2023-01-12] MEDS ORDERED: SODIUM CHLORIDE 0.9% 500 ML INFUS.BAG IV ONE (15:44)
[2023-01-12] MEDS ORDERED: DEXTROSE 50%-WATER 25 GM/50 ML DISP.SYRIN ONE ×2 (15:50→16:17)
[2023-01-12 16:21] LABS: EPI CELLS 26 /uL (0-25.1); HYALINE CASTS 3 /uL (0-3.1); PH,URINE 5.5 (5.0-8.0); URINE APPEARANCE CLEAR; URINE BACTERIA 251 /uL (0-1359); URINE BILIRUBIN NEGATIVE (NEGATIVE); URINE COLOR DK YELLOW; URINE GLUCOSE (UA) NEGATIVE (NEGATIVE); URINE KETONE 1+ (NEGATIVE); URINE LEUK ESTERASE TRACE (NEGATIVE); URINE NITRITE NEGATIVE (NEGATIVE); URINE PROTEIN 1+ (NEGATIVE); URINE UROBILINOGEN 0.2 mg/dL (0.2-1.0); URINE WBC 50 /uL (0-25.8)
[2023-01-12] MEDS ORDERED: SODIUM ZIRCONIUM CYCLOSILICATE (LOKELMA) 5 GM PACKET ONE (16:23)
[2023-01-12 20:27] VITALS: BP 130/76; PULSE 88; RESP 18; TEMP 98.5
[2023-01-12 23:41] LABS: URINE RBC 25.2 /uL (0-23.9)
[2023-01-13] MEDS ORDERED: SODIUM ZIRCONIUM CYCLOSILICATE (LOKELMA) 5 GM PACKET PO SCH (10:00)
== END 2023-01-12 20:33 | disposition short-term general hospital (02) ==
LOC: JER 10:45
PROC: 3E033GC Introduction of Other Therapeutic Substance into Peripheral Vein, Percutaneous Approach (ICD-10-PCS; principal; 2023-01-12)
PROC: 3E013VG Introduction of Insulin into Subcutaneous Tissue, Percutaneous Approach (ICD-10-PCS; 2023-01-12)
DX: R06.02 Shortness of breath (principal); R53.83 Other fatigue; R42 Dizziness and giddiness; R05.9 Cough, unspecified; U07.1 COVID-19; E87.5 Hyperkalemia; N17.9 Acute kidney failure, unspecified
CPT/HCPCS: 0241U-QW; 36415; 71045-TC-FY; 80053; 81003; 82140; 83735; 83880; 84484; 85025; 87086; 93005; 93010; 99285-25